=== PATIENT | male | born 1985 | race Caucasian/White ===

== ENCOUNTER 2018-04-02 00:59 | Inpatient (IN) | payer MEDICAID ==
[2018-04-02] MEDS ORDERED: Sodium Chloride 0.9% 1,000 ML IV ONE ×2 (01:41→06:07)
[2018-04-02] MEDS ORDERED: Sodium Chloride 0.9% 1,000 ML ONE (01:48)
[2018-04-02 01:56] LABS: BASO # 0.1 K/uL (0.0-0.2); EOS # 0.8 K/uL (0.0-0.7); EOS % 8.8 % (0.0-4.0); HEMOGLOBIN 15.4 g/dL (12.0-18.0); LYMPH # 1.9 K/uL (1.0-4.3); LYMPH % 20.2 % (20.0-40.0); MEAN CORPUSCULAR HEMOGLOBIN 30.7 pg (27.0-31.0); MEAN CORPUSCULAR HGB CONC 34.9 g/dL (33.0-37.0); MEAN PLATELET VOLUME 9.5 fL (7.2-11.7); MONO # 1.2 K/uL (0.0-0.8); MONO % 12.5 % (0.0-10.0); NEUT # 5.4 K/uL (1.8-7.0); NEUT % 57.5 % (50.0-75.0); RBC 5.01 Mil/uL (4.40-5.90); WHITE BLOOD COUNT 9.4 K/uL (4.8-10.8)
[2018-04-02 02:02] LABS: SQUAMOUS EPITHIAL < 1 /hpf (0-5); URINE BACTERIA RARE (<OCC); URINE BILIRUBIN NEGATIVE (NEGATIVE); URINE BLOOD NEGATIVE (NEGATIVE); URINE CLARITY Clear (Clear); URINE COLOR Yellow (YELLOW); URINE GLUCOSE (UA) 1+ mg/dL (Normal); URINE HYALINE CAST 0-2 /lpf (0-2); URINE LEUKOCYTE ESTERASE NEG Leu/uL (Negative); URINE PROTEIN 2+ mg/dL (NEGATIVE); URINE UROBILINOGEN NORMAL mg/dL (0.2-1.0)
[2018-04-02 02:09] LABS: ALB/GLOB RATIO 1.3 (1.0-2.1); ALBUMIN 4.4 g/dL (3.5-5.0); CALCIUM 9.4 mg/dl (8.6-10.4)
[2018-04-02] MEDS ORDERED: Morphine 4 MG/ML VIAL ONE (02:58)
--- NOTE | 2018-04-02 05:20 | C.PDOC ---
History Of Present Illness 32 year old male presents with a Hx of familial polyposis s/p total colectomy ( last surgery in 2011) presents to the ER with left sided flank pain that radiates to the abdomen intermittently for the past 3 weeks that has been worsening over the last day. Symptoms associated with nausea, vomiting, and hematuria. Patient was taking motrin initially with relief, however, he states it no longer helps. Denies fever , discharge from the osteomy. Last catheterization for BM at 11pm. Time Seen by Provider: 04/02/18 01:23 Chief Complaint (Nursing): Back Pain History Per: Patient History/Exam Limitations: no limitations Onset/Duration Of Symptoms: Days, Intermittent Episodes Current Symptoms Are (Timing): Still Present Previous Symptoms: None Associated Symptoms: Other (Nausea, vomiting, hematuria) Recent travel outside of the [place]: No Past Medical History Reviewed: Historical Data, Nursing Documentation, Vital Signs Vital Signs: Last Vital Signs Temp 97.6 F 04/02/18 15:30 Pulse 70 04/02/18 15:30 Resp 20 04/02/18 15:30 BP 114/67 04/02/18 15:30 Pulse Ox 98 04/02/18 15:30 - [facility] Procedures OTHER SKIN & SUBQ I D (06/15/13) PERIRECTAL INCISION (09/26/13) PROCTOTOMY (10/24/13) Family History: States: Diabetes, Hypertension - Social History Hx Tobacco Use: No Hx Alcohol Use: No Hx Substance Use: No - Immunization History Hx Tetanus Toxoid Vaccination: No Hx Influenza Vaccination: No Hx Pneumococcal Vaccination: No Review Of Systems Constitutional: Negative for: Fever Cardiovascular: Negative for: Chest Pain, Palpitations Respiratory: Negative for: Cough, Shortness of Breath Gastrointestinal: Positive for: Nausea, Vomiting, Abdominal Pain Genitourinary: Positive for: Hematuria. Negative for: Penile Discharge, Scrotal Pain Musculoskeletal: Positive for: Back Pain (Left flank) Physical Exam - Physical Exam Appears: Non-toxic, Other (uncomfortable) Skin: Normal Color, Warm, Dry Head: Atraumatic, Normacephalic Eye(s): bilateral: Normal Inspection, EOMI Nose: Normal Oral Mucosa: Moist Neck: Normal, Supple Chest: Symmetrical, No Tenderness Cardiovascular: Rhythm Regular Respiratory: Normal Breath Sounds, No Rales, No Rhonchi, No Wheezing Gastrointestinal/Abdominal: Soft, No Tenderness, Other (LLQ open wound with no surrounding erythema or drainage) Back: Other (Left flank tenderness) Extremity: Normal ROM Neurological/Psych: Oriented x3, Normal Speech ED Course And Treatment - Laboratory Results Result Diagrams: 04/02/18 01:45 04/02/18 01:45 O2 Sat by Pulse Oximetry: 99 (Room air) Pulse Ox Interpretation: Normal - CT Scan/US CT abd/pel Other Rad Studies (CT/US): Read By Radiologist, Radiology Report Reviewed CT/US Interpretation: EXAM: CT Abdomen and Pelvis Without Intravenous Contrast. CLINICAL HISTORY: 32 years, male; Pain; Abdominal pain; Prior surgery; Surgery date: 6+ months; Surgery type: Stomy;. Patient HX: 10-24-13. TECHNIQUE: Axial computed tomography images of the abdomen and pelvis without intravenous contrast. All CT. scans at this facility use at least one of these dose optimization techniques: automated exposure. control; mA and/or kV adjustment per patient size (includes targeted exams where dose is matched to. clinical indication); or iterative reconstruction. Coronal and sagittal reformatted images were created and reviewed. COMPARISON: CT - ABD PELVIS IV CONTRAST ONLY 2013-10-24 17:07. FINDINGS: Lung bases: Minimal bibasilar dependent atelectasis. ABDOMEN: Liver: Unremarkable. Gallbladder and bile ducts: Contracted gallbladder. No calcified stones. No ductal dilation. Pancreas: Unremarkable. No ductal dilation. Spleen: Unremarkable. No splenomegaly. Adrenals: Unremarkable. No mass. Kidneys and ureters: Mild left hydroureteronephrosis and minimal perinephric fat stranding with 10. mm obstructing calculus in the proximal left ureter. Right kidney unremarkable. Stomach and bowel: Evaluation of the GI tract is limited without benefit of oral contrast. Patient is. status post prior total colectomy the details of which are unknown. An ostomy is identified in the left. lower quadrant. A fluid filled collection is identified superior to the bladder with air fluid level in the. anti-dependent aspect of the collection and multiple small circular radiodensities of unknown etiology. layering in the dependent portion. Collection is felt most likely to represent a fluid-filled loop of bowel. potentially a surgical pouch. A distal obstruction is not entirely excluded. No mural thickening. PELVIS: Appendix: See above. Bladder: Unremarkable. Reproductive: Unremarkable as visualized. ABDOMEN and PELVIS: Intraperitoneal space: Unremarkable. No free air. No significant fluid collection. Bones/joints: No acute fracture. No dislocation. Soft tissues: Unremarkable. Vasculature: Unremarkable. No abdominal aortic aneurysm. Lymph nodes: Unremarkable. No enlarged lymph nodes. IMPRESSION: 1. Mild left hydroureteronephrosis and minimal perinephric fat stranding with 10 mm obstructing. calculus in the proximal left ureter. 2. Evaluation of the GI tract limited without benefit of oral contrast. Patient status post prior total. colectomy the details of which are unknown. Ostomy identified in the left lower quadrant. Fluid filled. collection in the lower pelvis as described above felt most likely to represent a fluid-filled loop of. bowel potentially a surgical pouch. Distal obstruction is not entirely excluded. Clinical correlation with. surgical history and more recent prior imaging studies if available is recommended. Further. evaluation with CT scan with oral contrast with a delay to allow contrast to opacify the distal bowel is. also recommended. Progress Note: Toradol administered, patient reports pain has not improved, morphine administered with relief. Case discussed with Dr Vasquez, who evaluated work up and agree dupon plan and treatment. Case discussed with patient's primary, Dr. Loredo, who agrees upon plan and admission. Disposition - Disposition Disposition: HOSPITALIZED Disposition Time: 06:00 Condition: STABLE - Clinical Impression Clinical Impression: Acute renal injury, Nephrolithiasis, Abdominal pain - PA / ELIGIBILITY SERVICES REPRESENTATIVE / Resident Statement MD/DO has reviewed & agrees with the documentation as recorded. - Scribe Statement The provider has reviewed the documentation as recorded by the Scribe Brennen Carvajal All medical record entries made by the Kathrineibandria were at my direction and personally dictated by me. I have reviewed the chart and agree that the record accurately reflects my personal performance of the history, physical exam, medical decision making, and the department course for this patient. I have also personally directed, reviewed, and agree with the discharge instructions and disposition.
[2018-04-02] MEDS ORDERED: Iohexol 240 (50 ml) PO ONE (06:18)
[2018-04-02] MEDS ORDERED: Dextrose 5%-0.225% NS 1,000 ML IV ONE (06:29)
[2018-04-02] MEDS: Dextrose 5%/0.45% NS 1,000 ML IV SCH ×4 (06:31→21:44)
[2018-04-02] MEDS ORDERED: Iohexol 240 (50 ml) ONE (06:35)
--- NOTE | 2018-04-02 08:45 | CT ---
PROCEDURE: CT Abdomen and Pelvis without intravenous contrast HISTORY: Abdominal pain COMPARISON: CT scan dated 10/24/2013 TECHNIQUE: Multiple contiguous axial images were performed through the abdomen pelvis without intravenous contrast. Subsequently, sagittal coronal reformatted images were obtained. Radiation dose: Total exam DLP = 749 mGy-cm. This CT exam was performed using one or more of the following dose reduction techniques: Automated exposure control, adjustment of the mA and/or kV according to patient size, and/or use of iterative reconstruction technique. FINDINGS: LOWER THORAX: Mild bibasilar dependent atelectasis. LIVER: Unremarkable. No gross lesion or ductal dilatation. GALLBLADDER AND BILE DUCTS: Contracted gallbladder. PANCREAS: Unremarkable. No gross lesion or ductal dilatation. SPLEEN: Unremarkable. ADRENALS: Unremarkable. No mass. KIDNEYS AND URETERS: Mild left hydroureteronephrosis and mild perinephric fat stranding with 10 millimeter obstructing calculus in the proximal left ureter. VASCULATURE: Unremarkable. No aortic aneurysm. BOWEL: Limited evaluation of the GI tract without oral contrast. Patient status post prior total colectomy the details of which are noted. An ostomy is identified in the left lower quadrant. Layering in the dependent portion. A fluid collection is identified superior to the urinary bladder with air-fluid level in the anti dependent aspect of the collection and multiple small circular radiodensities of uncertain clinical etiology layering in the dependent portion. Collection is felt most likely to represent a fluid-filled loop of bowel potentially a surgical pouch. A distal obstruction is not entirely excluded. No mural thickening. APPENDIX: Unremarkable. Normal appendix. PERITONEUM: Unremarkable. No free fluid. No free air. LYMPH NODES: Unremarkable. No enlarged lymph nodes. BLADDER: Unremarkable. REPRODUCTIVE: Unremarkable. BONES: Relative focal area of radiolucency in the right iliac bone. Clinical correlation. OTHER FINDINGS: None. IMPRESSION: 1. Mild left hydroureteronephrosis and mild perinephric fat stranding with 10 millimeter obstructing calculus in the proximal left ureter. 2. Limited evaluation of the GI tract without oral contrast. Patient status post prior total colectomy the details of which are noted. An ostomy is identified in the left lower quadrant. Layering in the dependent portion. A fluid collection is identified superior to the urinary bladder with air-fluid level in the anti dependent aspect of the collection and multiple small circular radiodensities of uncertain clinical etiology layering in the dependent portion. Collection is felt most likely to represent a fluid-filled loop of bowel potentially a surgical pouch. A distal obstruction is not entirely excluded. No mural thickening. Clinical correlation with surgical history and more recent prior imaging studies if available is recommended. Further evaluation with CT scan with oral contrast with a delay to allow contrast to opacify the distal bowel is also recommended. 3. Relative focal area of radiolucency in the right iliac bone. Clinical correlation. These findings were preliminarily reported at 4:53 a.m. on 04/02/[address] Shireen Tapia from [facility].
--- NOTE | 2018-04-02 11:16 | CT ---
PROCEDURE: CT Abdomen and Pelvis without intravenous contrast HISTORY: R/o bowel obstruction COMPARISON: CT scan of the abdomen pelvis performed approximately 6.5 hours prior. TECHNIQUE: Contiguous images were obtained from the domes of the diaphragms to the upper thighs without the administration of intravenous contrast. Oral contrast was administered. Radiation dose: Total exam DLP = 854.0 mGy-cm. This CT exam was performed using one or more of the following dose reduction techniques: Automated exposure control, adjustment of the mA and/or kV according to patient size, and/or use of iterative reconstruction technique. FINDINGS: There has been prior total colectomy. Oral contrast is seen in the pouch of bowel in the deep pelvis confirming absence of obstruction. Mild to moderate left hydroureteronephrosis secondary to obstructive proximal left ureteral calculus is grossly unchanged. Diffuse hepatic steatosis is again evident. Lucent area in the right iliac bone is again noted. The remainder of the examination is unremarkable and unchanged. IMPRESSION: No evidence of small bowel obstruction.
[2018-04-02 14:15] LABS: PROTHROMBIN TIME 11.3 SECONDS (9.7-12.2)
--- NOTE | 2018-04-02 18:17 | CP.PCM.HP ---
History of Present Illness - History of Present Illness History of Present Illness: cc; Pt is a 32 year old male who came to the ER with a 2 weeks history of back pain. PT thought it was a back spasm, however at time it was accompanied by vomiting and gross hematuria. PT treated pain with Motrim 600mg , 4 tabs q6h. PT went to [facility], but had to come back and came to ER directly from the airport. PT was given Morphine 4 mg in ER but states it did not help. He was on chronic narcotics in the past for chronic abd pain and his tolerance is very high. PT was found to have an elevated creat and Ct revealed an obstructed ureter. PMH: Familial polyposis syndrome Bening neoplasm of colon anxiety disorder pre-diabetes Generalized abdominal pain Left lower quadrant pain FMH: Mother- high cholesterol Father- Diabetes Hypertension PSH; colectomy for polyposisi Social Hx: neg. smoke neg. ETOH neg. Drugs Allergies: NKDA Medications: Ventolin 1-2 puffs Present on Admission - Present on Admission Any Indicators Present on Admission: No Review of Systems - Cardiovascular Cardiovascular: absent: Chest Pain, Chest Pain with Activity, Diaphoresis, Orthopnea - Respiratory Respiratory: absent: Cough, Dyspnea, Wheezing - Gastrointestinal Gastrointestinal: Cramping, Nausea, Vomiting - Genitourinary Genitourinary: Hematuria - Musculoskeletal Musculoskeletal: Back Pain, Muscle Cramps Past Patient History - Infectious Disease Hx of Infectious Diseases: None - Past Medical History & Family History Past Medical History?: Yes - Past Social History Smoking Status: Never Smoked - CARDIAC Hx Cardiac Disorders: No - PULMONARY Hx Respiratory Disorders: No - NEUROLOGICAL Hx Neurological Disorder: No - HEENT Hx HEENT Problems: No - RENAL Hx Chronic Kidney Disease: No - ENDOCRINE/METABOLIC Hx Endocrine Disorders: No - HEMATOLOGICAL/ONCOLOGICAL Hx Blood Disorders: No - INTEGUMENTARY Hx Dermatological Problems: No - MUSCULOSKELETAL/RHEUMATOLOGICAL Hx Falls: No - GASTROINTESTINAL Hx Gastrointestinal Disorders: No - GENITOURINARY/GYNECOLOGICAL Hx Genitourinary Disorders: No - PSYCHIATRIC Hx Substance Use: No - SURGICAL HISTORY Hx Surgeries: Yes Other/Comment: total colectomy 2011= with stoma to left abdomen 2012 - ANESTHESIA Hx Anesthesia: Yes Hx Anesthesia Reactions: No Meds Allergies/Adverse Reactions: Allergies Allergy/AdvReac Type Severity Reaction Status Date / Time No Known Allergies Allergy Verified 04/02/18 01:19 Physical Exam - Constitutional Appears: No Acute Distress - Eye Exam Eye Exam: EOMI - ENT Exam ENT Exam: Mucous Membranes Moist - Neck Exam Neck exam: Positive for: Normal Inspection - Respiratory Exam Respiratory Exam: Clear to Auscultation Bilateral - Cardiovascular Exam Cardiovascular Exam: RRR, +S1, +S2. absent: JVD, Rubs, Systolic Murmur - GI/Abdominal Exam GI & Abdominal Exam: Normal Bowel Sounds, Soft. absent: Distended, Mass, Rebound, Tenderness - Extremities Exam Extremities exam: Positive for: normal inspection. Negative for: joint swelling Results - Vital Signs Recent Vital Signs: Last Vital Signs Temp 97.6 F 04/02/18 15:30 Pulse 70 04/02/18 15:30 Resp 20 04/02/18 15:30 BP 114/67 04/02/18 15:30 Pulse Ox 98 04/02/18 15:30 - Labs Result Diagrams: 04/02/18 01:45 04/02/18 01:45 Labs: Laboratory Results - last 24 hr 04/02/18 04/02/18 04/02/18 01:45 01:45 01:45 WBC 9.4 RBC 5.01 Hgb 15.4 Hct 44.0 MCV 88.0 MCH 30.7 MCHC 34.9 RDW 13.0 Plt Count 238 MPV 9.5 Neut % (Auto) 57.5 Lymph % (Auto) 20.2 [place] % (Auto) 12.5 H Eos % (Auto) 8.8 H Baso % (Auto) 1.0 Neut # (Auto) 5.4 Lymph # (Auto) 1.9 [place] # (Auto) 1.2 H Eos # (Auto) 0.8 H Baso # (Auto) 0.1 PT INR Sodium 142 Potassium 3.7 Chloride 104 Carbon Dioxide 23 Anion Gap 18 BUN 30 H Creatinine 2.5 H Est GFR ( Amer) 37 Est GFR (Non-Af Amer) 30 Random Glucose 84 Calcium 9.4 Total Bilirubin 0.9 AST 28 ALT 43 Alkaline Phosphatase 106 Total Protein 7.9 Albumin 4.4 Globulin 3.5 Albumin/Globulin Ratio 1.3 Lipase 132 Urine Color Yellow Urine Clarity Clear Urine pH 5.0 Ur Specific [place] 1.024 Urine Protein 2+ H Urine Glucose (UA) 1+ H Urine Ketones Negative Urine Blood Negative Urine Nitrate Negative Urine Bilirubin Negative Urine Urobilinogen Normal Ur Leukocyte Esterase Neg Urine WBC (Auto) 19 H Urine RBC (Auto) 2 Ur Squamous Epith Cells < 1 Urine Bacteria Rare Hyaline Casts 0-2 04/02/18 14:00 WBC RBC Hgb Hct MCV MCH MCHC RDW Plt Count MPV Neut % (Auto) Lymph % (Auto) [place] % (Auto) Eos % (Auto) Baso % (Auto) Neut # (Auto) Lymph # (Auto) [place] # (Auto) Eos # (Auto) Baso # (Auto) PT 11.3 INR 1.0 Sodium Potassium Chloride Carbon Dioxide Anion Gap BUN Creatinine Est GFR ( Amer) Est GFR (Non-Af Amer) Random Glucose Calcium Total Bilirubin AST ALT Alkaline Phosphatase Total Protein Albumin Globulin Albumin/Globulin Ratio Lipase Urine Color Urine Clarity Urine pH Ur Specific [place] Urine Protein Urine Glucose (UA) Urine Ketones Urine Blood Urine Nitrate Urine Bilirubin Urine Urobilinogen Ur Leukocyte Esterase Urine WBC (Auto) Urine RBC (Auto) Ur Squamous Epith Cells Urine Bacteria Hyaline Casts Assessment & Plan - Assessment and Plan (Free Text) Assessment: Acute renal failure due to obstructive uropathy UReter stones can not rule out underlying papillary necrosis due to excessive use of Nsaids urology consulted for cysto in AM ivf pain management gi and dvt prophylaxis rocephin +urine
[2018-04-02] MEDS: HYDROmorphone 1 mg/ml ISec IVP PRN (20:23)
[2018-04-02 21:46] LABS: CALCIUM 8.4 mg/dl (8.6-10.4)
--- NOTE | 2018-04-02 22:30 | CP.PCM.CON ---
Past Patient History - Infectious Disease Hx of Infectious Diseases: None - Past Medical History & Family History Past Medical History?: Yes - Past Social History Smoking Status: Never Smoked - CARDIAC Hx Cardiac Disorders: No - PULMONARY Hx Respiratory Disorders: No - NEUROLOGICAL Hx Neurological Disorder: No - HEENT Hx HEENT Problems: No - RENAL Hx Chronic Kidney Disease: No - ENDOCRINE/METABOLIC Hx Endocrine Disorders: No - HEMATOLOGICAL/ONCOLOGICAL Hx Blood Disorders: No - INTEGUMENTARY Hx Dermatological Problems: No - MUSCULOSKELETAL/RHEUMATOLOGICAL Hx Falls: No - GASTROINTESTINAL Hx Gastrointestinal Disorders: No - GENITOURINARY/GYNECOLOGICAL Hx Genitourinary Disorders: No - PSYCHIATRIC Hx Substance Use: No - SURGICAL HISTORY Hx Surgeries: Yes Other/Comment: total colectomy 2012= with stoma to left abdomen 2011 - ANESTHESIA Hx Anesthesia: Yes Hx Anesthesia Reactions: No Meds Allergies/Adverse Reactions: Allergies Allergy/AdvReac Type Severity Reaction Status Date / Time No Known Allergies Allergy Verified 04/02/18 01:19 - Medications Medications: Current Medications Famotidine (Pepcid) 20 mg IVP DAILY [facility] Heparin Sodium (Porcine) (Heparin) 5,000 units SC Q8 [facility] Last Admin: 04/02/18 21:46 Dose: 5,000 units Hydromorphone HCl (Dilaudid) 1 mg IVP Q4H PRN PRN Reason: Pain, moderate (4-7) Last Admin: 04/02/18 20:23 Dose: 1 mg Dextrose/Sodium Chloride (Dextrose 5%/0.45% Ns 1000 Ml) 1,000 mls @ 125 mls/hr IV .Q8H [facility] Last Admin: 04/02/18 21:44 Dose: Not Given Ceftriaxone Sodium (Rocephin Iv 1 Gm Duplex) 50 mls @ 100 mls/hr IVPB DAILY [facility] PRN Reason: Protocol Ondansetron HCl (Zofran Inj) 4 mg IVP Q4H PRN PRN Reason: Nausea/Vomiting Last Admin: 04/02/18 09:42 Dose: 4 mg Results - Vital Signs Recent Vital Signs: Last Vital Signs Temp 97.6 F 04/02/18 15:30 Pulse 70 04/02/18 15:30 Resp 20 04/02/18 15:30 BP 114/67 04/02/18 15:30 Pulse Ox 99 04/02/18 20:51 - Labs Result Diagrams: 04/02/18 01:45 07/05/18 21:14 Labs: Laboratory Results - last 24 hr 04/02/18 04/02/18 04/02/18 01:45 01:45 01:45 WBC 9.4 RBC 5.01 Hgb 15.4 Hct 44.0 MCV 88.0 MCH 30.7 MCHC 34.9 RDW 13.0 Plt Count 238 MPV 9.5 Neut % (Auto) 57.5 Lymph % (Auto) 20.2 [place] % (Auto) 12.5 H Eos % (Auto) 8.8 H Baso % (Auto) 1.0 Neut # (Auto) 5.4 Lymph # (Auto) 1.9 [place] # (Auto) 1.2 H Eos # (Auto) 0.8 H Baso # (Auto) 0.1 PT INR Sodium 142 Potassium 3.7 Chloride 104 Carbon Dioxide 23 Anion Gap 18 BUN 30 H Creatinine 2.5 H Est GFR ( Amer) 37 Est GFR (Non-Af Amer) 30 Random Glucose 84 Calcium 9.4 Total Bilirubin 0.9 AST 28 ALT 43 Alkaline Phosphatase 106 Total Protein 7.9 Albumin 4.4 Globulin 3.5 Albumin/Globulin Ratio 1.3 Lipase 132 Urine Color Yellow Urine Clarity Clear Urine pH 5.0 Ur Specific [place] 1.024 Urine Protein 2+ H Urine Glucose (UA) 1+ H Urine Ketones Negative Urine Blood Negative Urine Nitrate Negative Urine Bilirubin Negative Urine Urobilinogen Normal Ur Leukocyte Esterase Neg Urine WBC (Auto) 19 H Urine RBC (Auto) 2 Ur Squamous Epith Cells < 1 Urine Bacteria Rare Hyaline Casts 0-2 04/02/18 04/02/18 14:00 21:14 WBC RBC Hgb Hct MCV MCH MCHC RDW Plt Count MPV Neut % (Auto) Lymph % (Auto) [place] % (Auto) Eos % (Auto) Baso % (Auto) Neut # (Auto) Lymph # (Auto) [place] # (Auto) Eos # (Auto) Baso # (Auto) PT 11.3 INR 1.0 Sodium 138 Potassium 3.6 Chloride 108 H Carbon Dioxide 21 L Anion Gap 14 BUN 19 Creatinine 1.9 H Est GFR ( Amer) 50 Est GFR (Non-Af Amer) 42 Random Glucose 102 Calcium 8.4 L Total Bilirubin AST ALT Alkaline Phosphatase Total Protein Albumin Globulin Albumin/Globulin Ratio Lipase Urine Color Urine Clarity Urine pH Ur Specific [place] Urine Protein Urine Glucose (UA) Urine Ketones Urine Blood Urine Nitrate Urine Bilirubin Urine Urobilinogen Ur Leukocyte Esterase Urine WBC (Auto) Urine RBC (Auto) Ur Squamous Epith Cells Urine Bacteria Hyaline Casts Assessment & Plan - Assessment and Plan (Free Text) Assessment: IMP: L renal colici Urolithiasis s/p small and large bowel resection of polyposis Thank you YS - Date & Time Date: 04/02/18 Time: 07:50
[2018-04-03] MEDS: HYDROmorphone 1 mg/ml ISec IVP PRN ×5 (01:37→19:47)
[2018-04-03] MEDS: Dextrose 5%/0.45% NS 1,000 ML IV SCH ×4 (02:40→22:01)
[2018-04-03] MEDS ORDERED: Lidocaine 2% Jelly (Uro-Jet) ONE (08:51)
[2018-04-03] MEDS ORDERED: Iohexol 240 (50 ml) ONE (08:51)
[2018-04-03] MEDS ORDERED: cefTRIAXone IV 1 gm in Dextros 50 ML IVPB ONE (08:51)
[2018-04-03] MEDS ORDERED: Propofol 10 mg/ml Inj (20 ML) ONE ×2 (09:01→09:02)
[2018-04-03] MEDS ORDERED: Midazolam 2 MG/2 ML VIAL ONE (09:01)
[2018-04-03] MEDS ORDERED: HYDROmorphone 0.5 mg/0.5 ml ISec IVP PRN (09:44)
[2018-04-03 10:06] LABS: URIC ACID 5.4 mg/dL (3.5-8.5)
--- NOTE | 2018-04-03 10:13 | PCM.SURG1 ---
Surgeon's Initial Post Op Note - Surgeon's Notes Surgeon: Humphrey Lara Trimmer Meat: none Type of Anesthesia: General LMA Pre-Operative Diagnosis: L renal colic. urolithiasis Operative Findings: same. L hydronephrosis. L renal calculus Post-Operative Diagnosis: same Operation Performed: cysto. L rtg pyelogram. insertion of L ureteral stent Specimen/Specimens Removed: urine Estimated Blood Loss: EBL {In ML}: 0 Blood Products Given: N/A Date of Surgery/Procedure: 04/03/18 Time of Surgery/Procedure: 09:45
[2018-04-03] MEDS ORDERED: Lactated Ringer's 1,000 ML IV ONE (11:00)
[2018-04-03] MEDS: cefTRIAXone IV 1 gm in Dextros 50 ML IVPB SCH (11:29)
--- NOTE | 2018-04-03 12:22 | RAD ---
PROCEDURE: Intraoperative Fluoroscopy. HISTORY: LT. URETER CALCULI/HYDRONEPHROSIS FINDINGS: Fluoroscopic assistance was provided for . Fluoroscopy time = 35.4 seconds. Radiation dose = 0.13300 mGy-cm Please refer to the operative report for additional details
--- NOTE | 2018-04-03 12:32 | RAD ---
HISTORY: LT. URETER CALCULI COMPARISON: Comparison made with CT scan abdomen and pelvis 04/02/2018. The FINDINGS: BOWEL: Normal. No obstruction. No free air. BONES: Normal. OTHER FINDINGS: Previously noted 10 mm x 5.8 mm proximal left ureteral- UPJ calculus is not appreciated on this exam. IMPRESSION: Previously noted 10 mm x 5.8 mm proximal left ureteral - UPJ calculus not appreciated on this study.
[2018-04-03 16:04] VITALS: RESP 20
[2018-04-03 20:00] LABS: BLOOD UREA NITROGEN 13 mg/dL (9-20); CALCIUM 8.6 mg/dl (8.6-10.4); GFR AFRICAN-AMERICAN > 60; GFR NON-AFRICAN AMERICAN > 60
[2018-04-04] MEDS: HYDROmorphone 1 mg/ml ISec IVP PRN ×5 (00:20→19:13)
[2018-04-04] MEDS: Dextrose 5%/0.45% NS 1,000 ML IV SCH ×2 (06:28→14:53)
[2018-04-04 06:53] LABS: BLOOD UREA NITROGEN 12 mg/dL (9-20); CALCIUM 8.9 mg/dl (8.6-10.4); GFR AFRICAN-AMERICAN > 60; GFR NON-AFRICAN AMERICAN > 60
[2018-04-04] MEDS: cefTRIAXone IV 1 gm in Dextros 50 ML IVPB SCH (10:08)
[2018-04-04 16:17] VITALS: BP 153/86; TEMP 98; O2SAT 95
[2018-04-04] MEDS ORDERED: Potassium Chloride 20 mEq ER Tab PO ONE (16:30)
[2018-04-04 18:36] VITALS: PULSE 62
--- NOTE | 2018-04-04 19:59 | CP.PCM.DIS ---
Provider - Provider Date of Admission: 04/02/18 06:04 Attending physician: Nancy Loredo MD Time Spent in preparation of Discharge (in minutes): 30 Hospital Course - Lab Results Lab Results: Micro Results 04/03/18 12:19 Urine,Catheterized Urine Culture - Final No Growth (<1,000 CFU/ML) 04/03/18 12:19 Urine Urine Culture - Final No Growth (<1,000 CFU/ML) Most Recent Lab Values WBC 9.4 K/uL (4.8-10.8) 04/02/18 01:45 RBC 5.01 Mil/uL (4.40-5.90) 04/02/18 01:45 Hgb 15.4 g/dL (12.0-18.0) 04/02/18 01:45 Hct 44.0 % (35.0-51.0) 04/02/18 01:45 MCV 88.0 fL (80.0-94.0) 04/02/18 01:45 MCH 30.7 pg (27.0-31.0) 04/02/18 01:45 MCHC 34.9 g/dL (33.0-37.0) 04/02/18 01:45 RDW 13.0 % (11.5-14.5) 04/02/18 01:45 Plt Count 238 K/uL (130-400) 04/02/18 01:45 MPV 9.5 fL (7.2-11.7) 04/02/18 01:45 Neut % (Auto) 57.5 % (50.0-75.0) 04/02/18 01:45 Lymph % (Auto) 20.2 % (20.0-40.0) 04/02/18 01:45 [place] % (Auto) 12.5 % (0.0-10.0) H 04/02/18 01:45 Eos % (Auto) 8.8 % (0.0-4.0) H 04/02/18 01:45 Baso % (Auto) 1.0 % (0.0-2.0) 04/02/18 01:45 Neut # (Auto) 5.4 K/uL (1.8-7.0) 04/02/18 01:45 Lymph # (Auto) 1.9 K/uL (1.0-4.3) 04/02/18 01:45 [place] # (Auto) 1.2 K/uL (0.0-0.8) H 04/02/18 01:45 Eos # (Auto) 0.8 K/uL (0.0-0.7) H 04/02/18 01:45 Baso # (Auto) 0.1 K/uL (0.0-0.2) 04/02/18 01:45 PT 11.3 SECONDS (9.7-12.2) 04/02/18 14:00 INR 1.0 04/02/18 14:00 Sodium 142 mmol/L (132-148) 04/04/18 06:26 Potassium 3.3 mmol/L (3.6-5.2) L 04/04/18 06:26 Chloride 102 mmol/L (98-107) 04/04/18 06:26 Carbon Dioxide 28 mmol/L (22-30) 04/04/18 06:26 Anion Gap 14 (10-20) 04/04/18 06:26 BUN 12 mg/dL (9-20) 04/04/18 06:26 Creatinine 1.2 mg/dL (0.8-1.5) 04/04/18 06:26 Est GFR ( Amer) > 60 04/04/18 06:26 Est GFR (Non-Af Amer) > 60 04/04/18 06:26 Random Glucose 97 mg/dL (75-110) 04/04/18 06:26 Uric Acid 5.4 mg/dL (3.5-8.5) 04/02/18 21:14 Calcium 8.9 mg/dl (8.6-10.4) 04/04/18 06:26 Phosphorus 3.4 mg/dL (2.5-4.5) 04/04/18 06:26 Magnesium 1.8 mg/dL (1.6-2.3) 04/04/18 06:26 Total Bilirubin 0.9 mg/dL (0.2-1.3) 04/02/18 01:45 AST 28 U/L (17-59) 04/02/18 01:45 ALT 43 U/L (21-72) 04/02/18 01:45 Alkaline Phosphatase 106 U/L (38-126) 04/02/18 01:45 Total Protein 7.9 g/dL (6.3-8.3) 04/02/18 01:45 Albumin 4.4 g/dL (3.5-5.0) 04/02/18 01:45 Globulin 3.5 gm/dL (2.2-3.9) 04/02/18 01:45 Albumin/Globulin Ratio 1.3 (1.0-2.1) 04/02/18 01:45 Lipase 132 U/L (23-300) 04/02/18 01:45 Urine Color Yellow (YELLOW) 04/02/18 01:45 Urine Clarity Clear (Clear) 04/02/18 01:45 Urine pH 5.0 (5.0-8.0) 04/02/18 01:45 Ur Specific [place] 1.024 (1.003-1.030) 04/02/18 01:45 Urine Protein 2+ mg/dL (NEGATIVE) H 04/02/18 01:45 Urine Glucose (UA) 1+ mg/dL (Normal) H 04/02/18 01:45 Urine Ketones Negative mg/dL (NEGATIVE) 04/02/18 01:45 Urine Blood Negative (NEGATIVE) 04/02/18 01:45 Urine Nitrate Negative (NEGATIVE) 04/02/18 01:45 Urine Bilirubin Negative (NEGATIVE) 04/02/18 01:45 Urine Urobilinogen Normal mg/dL (0.2-1.0) 04/02/18 01:45 Ur Leukocyte Esterase Neg [place]/uL (Negative) 04/02/18 01:45 Urine WBC (Auto) 19 /hpf (0-5) H 04/02/18 01:45 Urine RBC (Auto) 2 /hpf (0-3) 04/02/18 01:45 Ur Squamous Epith Cells < 1 /hpf (0-5) 04/02/18 01:45 Urine Bacteria Rare (<OCC) 04/02/18 01:45 Hyaline Casts 0-2 /lpf (0-2) 04/02/18 01:45 - Hospital Course Hospital Course: Pt was admitted with obstructive uropathy secondary to ureter stone. pt had cyto , stent placed, hydrated and treated for pain. Pt creat normalized sent home on po anbx and pain meds follow up with me and urologyst next week. Discharge Exam - Eye Exam Eye Exam: EOMI - ENT Exam ENT Exam: Mucous Membranes Moist - Respiratory Exam Respiratory Exam: Clear to PA & Lateral - Cardiovascular Exam Cardiovascular Exam: +S1, +S2. absent: JVD, Rubs Discharge Plan - Follow Up Plan Condition: STABLE
--- NOTE | 2018-04-04 20:02 | CP.PCM.PN ---
Subjective - Date & Time of Evaluation Date of Evaluation: 04/03/18 Time of Evaluation: 11:00 - Subjective Subjective: Pt having cysto +pain Objective - Vital Signs/Intake and Output Vital Signs (last 24 hours): Temp Pulse Resp BP Pulse Ox 98.0 F 62 20 153/86 H 95 04/04/18 16:00 04/04/18 16:10 04/04/18 16:00 04/04/18 16:00 04/04/18 16:00 Intake and Output: 04/04/18 04/05/18 18:59 06:59 Intake Total 550 Output Total 700 Balance -150 - Medications Medications: Current Medications Famotidine (Pepcid) 20 mg IVP DAILY [facility] Last Admin: 04/04/18 10:10 Dose: 20 mg Heparin Sodium (Porcine) (Heparin) 5,000 units SC Q8 [facility] Last Admin: 04/04/18 13:58 Dose: 5,000 units Hydromorphone HCl (Dilaudid) 2 mg IVP Q4H PRN PRN Reason: Pain, moderate (4-7) Last Admin: 04/04/18 19:13 Dose: 2 mg Dextrose/Sodium Chloride (Dextrose 5%/0.45% Ns 1000 Ml) 1,000 mls @ 125 mls/hr IV .Q8H [facility] Last Admin: 04/04/18 14:53 Dose: 125 mls/hr Ceftriaxone Sodium (Rocephin Iv 1 Gm Duplex) 50 mls @ 100 mls/hr IVPB DAILY [facility] PRN Reason: Protocol Last Admin: 04/04/18 10:08 Dose: 100 mls/hr Ondansetron HCl (Zofran Inj) 4 mg IVP Q4H PRN PRN Reason: Nausea/Vomiting Last Admin: 04/04/18 19:10 Dose: 4 mg - Labs Labs: 04/02/18 01:45 04/04/18 06:26 PT 11.3 SECONDS (9.7-12.2) 04/02/18 14:00 INR 1.0 04/02/18 14:00 - Eye Exam Eye Exam: EOMI - ENT Exam ENT Exam: Mucous Membranes Moist - Respiratory Exam Respiratory Exam: Clear to Ausculation Bilateral - GI/Abdominal Exam GI & Abdominal Exam: Soft, Normal Bowel Sounds. absent: Tenderness Assessment and Plan - Assessment and Plan (Free Text) Assessment: cont hydration pain meds increased cysto
--- NOTE | 2018-04-05 09:32 | OP ---
PROCEDURE DATE: 04/03/2018 PREOPERATIVE DIAGNOSIS: Left renal colic. POSTOPERATIVE DIAGNOSES: Left renal colic. Left renal calculus. PROCEDURE: Cystoscopy. Left retrograde ureteral pyelogram. Insertion of left ureteral stent. Exam under anesthesia. DESCRIPTION OF PROCEDURE: Procedure as follows: The patient was placed in the lithotomy position. The genitalia prepped and draped sterilely. Anesthesia was applied by the anesthesiologist. The patient received perioperative antibiotics. Procedure was performed under video endoscopic control as well as under fluoroscopic control. Depalletizer Operator film of the abdomen was obtained including PA and oblique views. There were no definite calcifications identified along the course of the urinary tract. The patient was in lithotomy position. Genitalia prepped and draped sterilely. A 22-[place] cystoscope sheath was introduced under direct vision. Urethra, prostate, and bladder were inspected with 30 degree lens. FINDINGS: There was no stricture in the anterior urethra. There was evidence of mild prostatic hypertrophy which was occlusive. There were numerous sand-like particles within the bladder. There was in addition a tiny, less than 1 mm yellow stone fragment within the bladder. There was no bladder tumor. There were probable uric acid bladder stones as described. The ureteral orifices were identified. There was mild erythema of the trigone. A retrograde ureteral pyelogram was performed. Iodinated contrast dye was instilled via an open-ended catheter into the left distal ureter. Retrograde pyelogram demonstrated a normal ureteral course and caliber. There was left hydronephrosis with dilation of the pelvis and at the calyces. There was an oval-shaped stone, approximately 1 cm in size, in the left renal pelvis. These oval-shaped finding appeared as a radiolucency relative to the contrast. A 0.035-inch guidewire was inserted through the open-ended catheter up to the level of kidney. The open-ended catheter was removed. A 6-[place] Multi-Length stent was inserted over the guidewire. Proper stent position was confirmed with fluoroscopy and endoscopy. The guidewire was removed and stent was left in place. There was noted to be a brisk hydronephrotic flow of turbid urine through the ureteral stent. The bladder was reinspected and confirmed the above findings. The bladder was drained. Cystoscope sheath removed. Rectal examination was attempted. However, the rectum was closed. Rectal examination was not able to be performed. The patient was returned to supine position. The patient tolerated procedure without complication. Janelle Lara MD cc: Nancy Loredo MD
--- NOTE | 2018-04-05 10:04 | CON ---
DATE: 04/02/2018 Urology consultation is requested by Dr. Nancy Loredo. Urology consultation filled by Dr. Janelle Lara. HISTORY OF PRESENT ILLNESS: The patient is a 32-year-old male with left flank pain. The patient reports that for approximately in the past 1 to 2 weeks he has had pain in the left flank. The pain became more severe over the past several days. The patient presented to the emergency room. There had been previous hematuria, which has resolved. The patient reports no fever. The patient had nausea. The patient reports no history of previous urolithiasis. The patient is otherwise well except for his previous surgical history. There is no history of hypertension or diabetes. The patient lives with his and child. The patient does not smoke. PAST SURGICAL HISTORY: The patient has previous colectomy with colostomy formation. The patient has history of a polyposis coli. The patient has normal bowel movements. He has a colostomy, although does not need to wear a colostomy bag. He has bowel movements approximately three times per day. The patient presented to the emergency room. He required parenteral analgesics. The patient reports that he still has required parenteral analgesics and has had pain. PHYSICAL EXAMINATION: GENERAL: The patient is well-developed, well-nourished, middle-aged male appearing his stated age. The patient has mild flank pain. He reports some relief of the pain with analgesics. ABDOMEN: Soft, nontender, nondistended. No mass or organomegaly. BACK: No CVA tenderness. GENITALIA: Without inflammation. LABORATORY DATA: Reviewed. CT scan is reviewed. There is an obstructing left upper ureteral stone at approximately the L3-L4 level. IMPRESSION: 1. Left renal colic. 2. History of colectomy for polyposis. In view of the size of the stone and persistent pain, the patient will require cystoscopy and stent insertion. Nature of the procedure has been explained to the patient. We will order a serum uric acid as well. I have checked the density of the stone on the CAT scan. There is a low density measurement of approximately 300 HU, consistent with uric acid urolithiasis. Further therapy to follow according to the patient's clinical course as well as results of above. Thank you for recommending the patient for urology consultation. Janelle Lara MD [facility] # [phone]
== END 2018-04-04 20:45 | disposition home or self-care (01) | DRG 324 ==
LOC: C.ER 00:59 → C.9E 06:04 → C.3T 06:24
PROVIDERS: ADMIT Internal Medicine; ATTEND Internal Medicine
PROC: 0T778DZ Dilation of Left Ureter with Intraluminal Device, Via Natural or Artificial Opening Endoscopic (ICD-10-PCS; principal; 2018-04-04)
PROC: BT1FZZZ Fluoroscopy of Left Kidney, Ureter and Bladder (ICD-10-PCS; 2018-04-04)
DX: N13.2 Hydronephrosis with renal and ureteral calculous obstruction (principal); N17.9 Acute kidney failure, unspecified; N21.0 Calculus in bladder; N40.0 Benign prostatic hyperplasia without lower urinary tract symptoms; E11.9 Type 2 diabetes mellitus without complications; I10 Essential (primary) hypertension; Z79.891 Long term (current) use of opiate analgesic; Z90.49 Acquired absence of other specified parts of digestive tract; Z93.3 Colostomy status

== ENCOUNTER 2018-09-04 13:14 | Emergency (ER) | payer MEDICAID ==
[2018-09-04 13:30] VITALS: RESP 18; TEMP 98.4
[2018-09-04] MEDS ORDERED: Sodium Chloride 0.9% 1,000 ML IV STA (13:52)
--- NOTE | 2018-09-04 14:03 | C.PDOC ---
History Of Present Illness 33 y/o male with a PMHx of kidney stones presents to the ED complaining of left lower back pain radiating to the left abdomen for 3 days. He denies any associated nausea, vomiting, fevers, chills, dysuria, or other complaints. Patient admits to noticing some hematuria yesterday. He reports pain is similar to prior episode of kidney stones over the summer. Time Seen by Provider: 09/04/18 13:31 Chief Complaint (Nursing): Male Genitourinary History Per: Patient History/Exam Limitations: no limitations Onset/Duration Of Symptoms: Days (x3) Current Symptoms Are (Timing): Still Present Past Medical History Reviewed: Historical Data, Nursing Documentation, Vital Signs Vital Signs: Last Vital Signs Temp 98.4 F 09/04/18 13:27 Pulse 78 09/04/18 13:27 Resp 18 09/04/18 13:27 BP 182/84 H 09/04/18 13:27 Pulse Ox 99 09/04/18 13:27 - Medical History PMH: Kidney Stones Denies: Chronic Kidney Disease - [facility] Procedures DILATION OF LEFT URETER WITH INTRALUMINAL DEVICE, ENDO (04/02/18) FLUOROSCOPY OF LEFT KIDNEY, URETER AND BLADDER (04/02/18) OTHER SKIN & SUBQ I D (06/15/13) PERIRECTAL INCISION (09/26/13) PROCTOTOMY (10/24/13) Family History: States: Diabetes, Hypertension - Social History Hx Tobacco Use: No Hx Alcohol Use: No Hx Substance Use: No - Immunization History Hx Tetanus Toxoid Vaccination: Yes Hx Influenza Vaccination: No Hx Pneumococcal Vaccination: No Review Of Systems Except As Marked, All Systems Reviewed And Found Negative. Constitutional: Negative for: Fever, Chills Gastrointestinal: Positive for: Abdominal Pain (left lower quadrant). Negative for: Nausea, Vomiting, Diarrhea Genitourinary: Positive for: Hematuria. Negative for: Dysuria, Frequency Musculoskeletal: Positive for: Back Pain (left low back) Physical Exam - Physical Exam Additional Physical Exam Comments: Constitutional: No acute distress. Head: Normocephalic. Atraumatic. Eyes: PERRL. ENT: Moist mucous membranes. Neck: Supple. Cardiovascular: Regular rate. Radial pulse 2+ bilaterally. Chest: No tenderness. Respiratory: Clear to auscultation bilaterally. GI: Soft. Nontender. Nondistended. Back: No CVA tenderness. Musculoskeletal: No tenderness or swelling of extremities. Skin: No rash. Neurologic: Alert, no focal deficit. ED Course And Treatment - Laboratory Results Result Diagrams: 09/04/18 14:01 09/04/18 14:01 O2 Sat by Pulse Oximetry: 99 (RA) Pulse Ox Interpretation: Normal Medical Decision Making Medical Decision Making: Initial Plan: --CMP --Lipase --CBC --UA --Urine culture --CT Abd/Pelvis --1 L of IV fluids --[address] resulted: Accession No. : [id number] Patient Name / ID : RICHY WILBURN / [id number] Exam Date : 09/04/2018 14:31:05 ( Approved ) Study Comment : Sex / Age : M / 33Y Creator : Danielle Meza MD Dictator : Danielle Meza MD Label Folder : Marine Fisheries Technician : Danielle Meza MD Approver2 : Report Date : 09/04/2018 15:07:29 My Comment : Date of service: 09/04/2018 PROCEDURE: CT Abdomen and Pelvis without intravenous contrast HISTORY: L flank pain COMPARISON: 04/02/2018. TECHNIQUE: CT scan of the abdomen and pelvis was performed without administration of intravenous contrast. Oral contrast was not administered. Coronal and sagittal reformatted images were obtained. . Radiation dose: Total exam DLP = 877.16 mGy-cm. This CT exam was performed using one or more of the following dose reduction techniques: Automated exposure control, adjustment of the mA and/or kV according to patient size, and/or use of iterative reconstruction technique. FINDINGS: LOWER THORAX: The visualized lungs are clear. LIVER: Moderate hepatomegaly and diffuse fatty liver. No intrahepatic ductal dilatation. GALLBLADDER AND BILE DUCTS: No calcified gallstones. No biliary dilatation PANCREAS: Normal in size. No ductal dilatation. SPLEEN: Normal in size. ADRENALS: Normal in size. No discrete nodule. KIDNEYS AND URETERS: The right kidney is normal in size without nephrolithiasis. No hydronephrosis. There is a 6 mm stone in the left proximal ureteral just distal to the UV junction with mild dilatation of the renal pelvis, mild hydronephrosis, edema and enlargement of the left kidney and perinephric fat stranding. There are punctate nonobstructing stones in the lower pole of the left kidney. VASCULATURE: No aortic aneurysm. No aortic atherosclerotic calcification or mural plaque present. BOWEL: Evaluation of the bowel is limited in the absence of oral contrast. The small bowel loops are normal in caliber. Status post total colectomy. There are multiple presumable anterolisthesis in a bowel loop in the deep pelvis. PERITONEUM: No free fluid. No free air. LYMPH NODES: No enlarged lymph nodes. BLADDER: Well distended and grossly normal in appearance. REPRODUCTIVE: The prostate gland is normal in size BONES: No acute fracture. There is redemonstration of a stable radiolucent lesion in the right iliac bone. OTHER FINDINGS: None. IMPRESSION: 6 mm stone in the left proximal ureter just distal to the UV junction, mild hydronephrosis and perinephric stretch stranding. Punctate nonobstructing stones in the lower pole of left kidney. Moderate hepatomegaly and fatty liver. Discussed with Dr. Davidson by phone, recommends Flomax, antibiotic, and urine culture and will see in office on Friday. Disposition Discussed With : Sunil Davidson Jr. Doctor Will See Patient In The: Office - Disposition Referrals: Sunil Davidson Jr., MD [Staff Provider] - Disposition: HOME/ ROUTINE Disposition Time: 15:08 Condition: STABLE Prescriptions: Ciprofloxacin [Cipro] 500 mg PO BID #14 tab Famotidine [Pepcid] 1 tab PO BID #14 tab Ibuprofen [Motrin] 600 mg PO Q6 #25 tab Ondansetron ODT [Zofran ODT] 4 mg PO Q8 #12 odt oxyCODONE/Acetaminophen [Percocet 5/325 mg Tab] 1 tab PO Q6 #10 tab Tamsulosin [Flomax] 0.4 mg PO DAILY #5 cap Instructions: Kidney Stones (DC) Forms: [employer] (Yemeni) - Clinical Impression Clinical Impression: Nephrolithiasis - Scribe Statement The provider has reviewed the documentation as recorded by the Scribe Capri Chalino Provider Attestation: All medical record entries made by the Stephan were at my direction and personally dictated by me. I have reviewed the chart and agree that the record accurately reflects my personal performance of the history, physical exam, medical decision making, and the department course for this patient. I have also personally directed, reviewed, and agree with the discharge instructions and disposition.
[2018-09-04 14:07] LABS: BASO # 0.1 K/uL (0.0-0.2); BASO % 0.8 % (0.0-2.0); EOS # 0.3 K/uL (0.0-0.7); EOS % 3.3 % (0.0-4.0); HEMOGLOBIN 15.2 g/dL (12.0-18.0); LYMPH # 1.1 K/uL (1.0-4.3); LYMPH % 10.7 % (20.0-40.0); MEAN CELL VOLUME 88.8 fL (80.0-94.0); MEAN CORPUSCULAR HEMOGLOBIN 30.8 pg (27.0-31.0); MEAN CORPUSCULAR HGB CONC 34.7 g/dL (33.0-37.0); MEAN PLATELET VOLUME 8.9 fL (7.2-11.7); MONO # 0.9 K/uL (0.0-0.8); MONO % 9.3 % (0.0-10.0); NEUT # 7.8 K/uL (1.8-7.0); NEUT % 75.9 % (50.0-75.0); RBC 4.94 Mil/uL (4.40-5.90); RED CELL DISTRIBUTION WIDTH 13.2 % (11.5-14.5); WHITE BLOOD COUNT 10.2 K/uL (4.8-10.8)
[2018-09-04 14:23] LABS: ALB/GLOB RATIO 1.3 (1.0-2.1); ALBUMIN 4.5 g/dL (3.5-5.0); ALT/SGPT 64 U/L (21-72); AST/SGOT 54 U/L (17-59); BLOOD UREA NITROGEN 16 mg/dL (9-20); CALCIUM 9.3 mg/dl (8.6-10.4); GFR NON-AFRICAN AMERICAN 59; LIPASE 82 U/L (23-300)
--- NOTE | 2018-09-04 15:11 | CT ---
Date of service: 09/04/2018 PROCEDURE: CT Abdomen and Pelvis without intravenous contrast HISTORY: L flank pain COMPARISON: 04/02/2018. TECHNIQUE: CT scan of the abdomen and pelvis was performed without administration of intravenous contrast. Oral contrast was not administered. Coronal and sagittal reformatted images were obtained. . Radiation dose: Total exam DLP = 877.16 mGy-cm. This CT exam was performed using one or more of the following dose reduction techniques: Automated exposure control, adjustment of the mA and/or kV according to patient size, and/or use of iterative reconstruction technique. FINDINGS: LOWER THORAX: The visualized lungs are clear. LIVER: Moderate hepatomegaly and diffuse fatty liver. No intrahepatic ductal dilatation. GALLBLADDER AND BILE DUCTS: No calcified gallstones. No biliary dilatation PANCREAS: Normal in size. No ductal dilatation. SPLEEN: Normal in size. ADRENALS: Normal in size. No discrete nodule. KIDNEYS AND URETERS: The right kidney is normal in size without nephrolithiasis. No hydronephrosis. There is a 6 mm stone in the left proximal ureteral just distal to the UV junction with mild dilatation of the renal pelvis, mild hydronephrosis, edema and enlargement of the left kidney and perinephric fat stranding. There are punctate nonobstructing stones in the lower pole of the left kidney. VASCULATURE: No aortic aneurysm. No aortic atherosclerotic calcification or mural plaque present. BOWEL: Evaluation of the bowel is limited in the absence of oral contrast. The small bowel loops are normal in caliber. Status post total colectomy. There are multiple presumable anterolisthesis in a bowel loop in the deep pelvis. PERITONEUM: No free fluid. No free air. LYMPH NODES: No enlarged lymph nodes. BLADDER: Well distended and grossly normal in appearance. REPRODUCTIVE: The prostate gland is normal in size BONES: No acute fracture. There is redemonstration of a stable radiolucent lesion in the right iliac bone. OTHER FINDINGS: None. IMPRESSION: 6 mm stone in the left proximal ureter just distal to the UV junction, mild hydronephrosis and perinephric stretch stranding. Punctate nonobstructing stones in the lower pole of left kidney. Moderate hepatomegaly and fatty liver.
[2018-09-04 15:36] VITALS: BP 118/75; PULSE 68
[2018-09-04 15:38] VITALS: O2SAT 99
[2018-09-04 16:10] LABS: SQUAMOUS EPITHIAL < 1 /hpf (0-5); URINE AMORPHOUS SEDIMENT RARE /ul (<OCC); URINE BILIRUBIN NEGATIVE (NEGATIVE); URINE CLARITY Hazy (Clear); URINE COLOR Yellow (YELLOW); URINE GLUCOSE (UA) NORMAL (Normal); URINE LEUKOCYTE ESTERASE NEG Leu/uL (Negative); URINE PROTEIN NEGATIVE (NEGATIVE); URINE URIC ACID CRYSTALS MOD /hpf (<OCC); URINE UROBILINOGEN NORMAL mg/dL (0.2-1.0)
[2018-09-04 16:11] LABS: URINE BLOOD 1+ (NEGATIVE)
[2018-09-04] MEDS ORDERED: Morphine 4 MG/ML VIAL ONE (16:31)
== END 2018-09-04 16:35 | disposition home or self-care (01) ==
LOC: C.ER 13:14
DX: N13.2 Hydronephrosis with renal and ureteral calculous obstruction (principal); Z87.442 Personal history of urinary calculi
CPT/HCPCS: 74176; 80053; 81001; 83690; 85025; 87086; 96361; 96374; 96375; 96376; 99285; J1885; J2270; J7030

== ENCOUNTER 2018-09-06 07:56 | Observation (INO) | payer MEDICAID ==
--- NOTE | 2018-09-06 08:04 | C.PDOC ---
History Of Present Illness 33 years old male with PMH kidney stones (Prior stent placed in March 2018) is sent to ED by Hernan Martinez to place a ureteral stent. Patient states he has a left sided kidney stone and currently reports left sided flank pain that has worsened since Friday. Patient also reports associated fever on Friday but denies any today. Denies vomiting or diarrhea. Patient states he is compliant with his medications and he last ate at 6pm last night. Per prior record: Patient evaluated 09/04/18 for flank pain and had labs and CT performed. CT showed 6 mm stone in the left proximal ureteral just distal to the UV junction with mild dilatation of the renal pelvis, mild hydronephrosis, edema and enlargement of the left kidney and perinephric fat stranding. Urology consult DR Davidson. Patient dishcarged and to follow up on Saturday 09/08 Time Seen by Provider: 09/06/18 08:20 History Per: Patient History/Exam Limitations: no limitations Onset/Duration Of Symptoms: Hrs Current Symptoms Are (Timing): Still Present Quality Of Discomfort: "Pain" Previous Symptoms: None Associated Symptoms: None Exacerbating Factor(s): Nothing Recent travel outside of the [place]: No Past Medical History Reviewed: Historical Data, Nursing Documentation, Vital Signs - Medical History PMH: Kidney Stones - [facility] Procedures DILATION OF LEFT URETER WITH INTRALUMINAL DEVICE, ENDO (04/02/18) FLUOROSCOPY OF LEFT KIDNEY, URETER AND BLADDER (04/02/18) OTHER SKIN & SUBQ I D (06/15/13) PERIRECTAL INCISION (09/26/13) PROCTOTOMY (10/24/13) Family History: States: Diabetes, Hypertension - Social History Hx Tobacco Use: No Hx Alcohol Use: No Hx Substance Use: No - Immunization History Hx Tetanus Toxoid Vaccination: Yes Hx Influenza Vaccination: No Hx Pneumococcal Vaccination: No Review Of Systems Constitutional: Negative for: Fever, Chills Gastrointestinal: Negative for: Nausea, Vomiting, Abdominal Pain, Diarrhea Genitourinary: Positive for: Dysuria Musculoskeletal: Positive for: Other (Left flank pain ) Skin: Negative for: Rash Neurological: Negative for: Weakness, Numbness Physical Exam - Physical Exam Appears: Non-toxic, No Acute Distress Skin: Normal Color, Warm, Dry, No Rash Head: Atraumatic, Normacephalic Eye(s): bilateral: Normal Inspection, PERRL, EOMI Oral Mucosa: Moist Neck: Normal ROM Chest: Symmetrical, No Tenderness Cardiovascular: Rhythm Regular Respiratory: Normal Breath Sounds, No Rales, No Rhonchi, No Wheezing Gastrointestinal/Abdominal: Bowel Sounds (Active ), Soft, No Tenderness, No Mass, No Distention, No Guarding Back: Normal Inspection, No CVA Tenderness, No Vertebral Tenderness, No Paraspinal Tenderness Extremity: Bilateral: Atraumatic, Normal Color And Temperature, Normal ROM Pulses: Left Radial: Normal, Right Radial: Normal Neurological/Psych: Oriented x3, Normal Speech Gait: Steady ED Course And Treatment - Laboratory Results Result Diagrams: 09/06/18 08:42 09/06/18 08:42 Medical Decision Making Medical Decision Making: Impression: Renal colic Prior record reviewed from 09/04/18: Patient evaluated for flank pain and had labs and CT performed. CT showed 6 mm stone in the left proximal ureteral just distal to the UV junction with mild dilatation of the renal pelvis, mild hydronephrosis, edema and enlargement of the left kidney and perinephric fat stranding. Urology consult DR Davidson. Patient dishcarged and to follow up on Saturday 09/08 Plan: * Morphine * IV Fluids * Blood work * Urinalysis Progress: 840 Spoke with Hernan Bertrand. Patient will be admitted. Plan is for OR stent placement 910 DR Janelle Lara calls ED to clarify this is his patient and wants patient admitted to medicine and will see tomorrow for stent placement. Contact Dr Ayon to inform patient in ED and plan for admission with urology consult and will need stent placement. She accepted patient to service Disposition - Disposition Disposition: HOSPITALIZED Disposition Time: 08:55 Condition: GOOD - POA Present On Arrival: None - Clinical Impression Clinical Impression: Nephrolithiasis, Renal colic on left side - PA / TRANSVERSE ABDOMINAL MUSCLE NURSE / Resident Statement MD/DO has reviewed & agrees with the documentation as recorded. - Scribe Statement The provider has reviewed the documentation as recorded by the Stephan Hinds All medical record entries made by the Kathrineibandria were at my direction and personall y dictated by me. I have reviewed the chart and agree that the record accurately reflects my personal performance of the history, physical exam, medical decision making, and the department course for this patient. I have also personally directed, reviewed, and agree with the discharge instructions and disposition. Decision To Admit - Pt Status Changed To: Hospital Disposition Of: Observation - . Bed Request Type: Regular Admitting Physician: Nancy Loredo Patient Diagnosis: Nephrolithiasis, Renal colic on left side
[2018-09-06 08:06] VITALS: BMI 32.8
[2018-09-06] MEDS ORDERED: Sodium Chloride 0.9% 1,000 ML IV ONE ×2 (08:20→10:17)
[2018-09-06] MEDS ORDERED: Sodium Chloride 0.9% 1,000 ML ONE ×2 (08:39→10:43)
[2018-09-06] MEDS ORDERED: Morphine 4 MG/ML VIAL ONE ×2 (08:39→10:43)
[2018-09-06 08:47] LABS: BASO # 0.1 K/uL (0.0-0.2); BASO % 0.6 % (0.0-2.0); EOS # 0.7 K/uL (0.0-0.7); EOS % 6.8 % (0.0-4.0); HEMOGLOBIN 15.4 g/dL (12.0-18.0); LYMPH # 1.6 K/uL (1.0-4.3); LYMPH % 16.3 % (20.0-40.0); MEAN CELL VOLUME 89.1 fL (80.0-94.0); MEAN CORPUSCULAR HEMOGLOBIN 30.6 pg (27.0-31.0); MEAN CORPUSCULAR HGB CONC 34.3 g/dL (33.0-37.0); MEAN PLATELET VOLUME 9.1 fL (7.2-11.7); MONO # 1.1 K/uL (0.0-0.8); MONO % 11.5 % (0.0-10.0); NEUT # 6.3 K/uL (1.8-7.0); NEUT % 64.8 % (50.0-75.0); NRBC % 0.1 % (0.0-2.0); RBC 5.04 Mil/uL (4.40-5.90); RED CELL DISTRIBUTION WIDTH 13.2 % (11.5-14.5); WHITE BLOOD COUNT 9.7 K/uL (4.8-10.8)
[2018-09-06 09:01] LABS: ALB/GLOB RATIO 1.2 (1.0-2.1); ALBUMIN 4.4 g/dL (3.5-5.0)
[2018-09-06 09:13] LABS: SQUAMOUS EPITHIAL 1 /hpf (0-5); URINE BILIRUBIN NEGATIVE (NEGATIVE); URINE BLOOD 1+ (NEGATIVE); URINE CLARITY Hazy (Clear); URINE COLOR Yellow (YELLOW); URINE GLUCOSE (UA) NORMAL (Normal); URINE LEUKOCYTE ESTERASE NEG Leu/uL (Negative); URINE PROTEIN 1+ mg/dL (NEGATIVE); URINE UROBILINOGEN NORMAL mg/dL (0.2-1.0)
[2018-09-06 09:17] LABS: PROTHROMBIN TIME 11.2 SECONDS (9.7-12.2)
--- NOTE | 2018-09-06 11:31 | RAD ---
Date of service: 09/06/2018 HISTORY: left kidney stone COMPARISON: CT abdomen and pelvis from 09/04/2018 FINDINGS: There is a 4 mm stone in the left proximal ureter at the level of transverse process of L2. There are no calcifications overlying the renal silhouette or along the course of the right ureteral. There are tiny phleboliths in the pelvis. BOWEL: Normal. No obstruction. No free air. BONES: Normal. OTHER FINDINGS: None. IMPRESSION: 4 mm left proximal ureteral stone at the level of transverse process of L2.
--- NOTE | 2018-09-06 16:59 | CP.PCM.HP ---
History of Present Illness - History of Present Illness History of Present Illness: kidney stone Pt is a 33 year old male admitted secondary to back pain, and hematuria. He presented to the ER two days ago with back pain and hematuria, was sent home with follow up with urology for outp treatment. Pt came back to the ER secondary to worse pain and hematuria. Pt reports prior episodes. Denies any other issues. Pt had total colon resection in the past due to familial polyposis. 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 family Father has poyposis KNDA pt denies any meds at home denies taking nsaids Present on Admission - Present on Admission Any Indicators Present on Admission: No Review of Systems - Constitutional Constitutional: absent: Chills, Daytime Sleepiness, Fatigue, Fever - EENT Eyes: absent: Blurred Vision - Cardiovascular Cardiovascular: absent: Chest Pain, Dyspnea on Exertion, Edema - Respiratory Respiratory: absent: Cough, Dyspnea, Hemoptysis - Gastrointestinal Gastrointestinal: absent: Abdominal Pain - Genitourinary Genitourinary: Flank Pain, Other (hematuria) Past Patient History - Infectious Disease Hx of Infectious Diseases: None - Past Medical History & Family History Past Medical History?: Yes - Past Social History Smoking Status: Never Smoked - CARDIAC Hx Cardiac Disorders: No - PULMONARY Hx Respiratory Disorders: No - NEUROLOGICAL Hx Neurological Disorder: No - HEENT Hx HEENT Problems: No - RENAL Hx Kidney Stones: Yes - ENDOCRINE/METABOLIC Hx Endocrine Disorders: No - HEMATOLOGICAL/ONCOLOGICAL Hx Blood Disorders: No - INTEGUMENTARY Hx Dermatological Problems: No - MUSCULOSKELETAL/RHEUMATOLOGICAL Hx Falls: No - GASTROINTESTINAL Hx Gastrointestinal Disorders: No - GENITOURINARY/GYNECOLOGICAL Hx Genitourinary Disorders: No - PSYCHIATRIC Hx Substance Use: No - SURGICAL HISTORY Hx Surgeries: Yes Other/Comment: total colectomy 2011= with stoma to left abdomen 2012 - ANESTHESIA Hx Anesthesia: Yes Hx Anesthesia Reactions: No Meds Allergies/Adverse Reactions: Allergies Allergy/AdvReac Type Severity Reaction Status Date / Time No Known Allergies Allergy Verified 09/04/18 13:30 Physical Exam - Constitutional Appears: Non-toxic - Eye Exam Eye Exam: Normal appearance - ENT Exam ENT Exam: Mucous Membranes Moist - Respiratory Exam Respiratory Exam: Clear to Auscultation Bilateral - Cardiovascular Exam Cardiovascular Exam: RRR, +S1, +S2. absent: JVD - GI/Abdominal Exam GI & Abdominal Exam: Normal Bowel Sounds. absent: Mass - Neurological Exam Neurological exam: Oriented x3 (cta bl) Results - Vital Signs Recent Vital Signs: Last Vital Signs Temp 97.8 F 09/06/18 15:35 Pulse 62 09/06/18 15:35 Resp 20 09/06/18 15:35 BP 110/62 09/06/18 15:35 Pulse Ox 99 09/06/18 15:53 - Labs Result Diagrams: 09/06/18 08:42 09/06/18 08:42 Labs: Laboratory Results - last 24 hr 09/06/18 09/06/18 09/06/18 08:42 08:42 09:03 WBC 9.7 RBC 5.04 Hgb 15.4 Hct 44.9 MCV 89.1 MCH 30.6 MCHC 34.3 RDW 13.2 Plt Count 244 MPV 9.1 Neut % (Auto) 64.8 Lymph % (Auto) 16.3 L [place] % (Auto) 11.5 H Eos % (Auto) 6.8 H Baso % (Auto) 0.6 Neut # (Auto) 6.3 Lymph # (Auto) 1.6 [place] # (Auto) 1.1 H Eos # (Auto) 0.7 Baso # (Auto) 0.1 PT INR APTT Sodium 138 Potassium 3.9 Chloride 102 Carbon Dioxide 24 Anion Gap 16 BUN 17 Creatinine 1.7 H Est GFR ( Amer) 57 Est GFR (Non-Af Amer) 47 Random Glucose 104 Calcium 9.0 Total Bilirubin 1.0 AST 29 ALT 50 Alkaline Phosphatase 97 Total Protein 8.0 Albumin 4.4 Globulin 3.7 Albumin/Globulin Ratio 1.2 Urine Color Yellow Urine Clarity Hazy Urine pH 5.0 Ur Specific [place] 1.024 Urine Protein 1+ H Urine Glucose (UA) Normal Urine Ketones Negative Urine Blood 1+ H Urine Nitrate Negative Urine Bilirubin Negative Urine Urobilinogen Normal Ur Leukocyte Esterase Neg Urine WBC (Auto) 1 Urine RBC (Auto) 4 H Ur Squamous Epith Cells 1 Blood Type Antibody Screen 09/06/18 09/06/18 09:03 09:03 WBC RBC Hgb Hct MCV MCH MCHC RDW Plt Count MPV Neut % (Auto) Lymph % (Auto) [place] % (Auto) Eos % (Auto) Baso % (Auto) Neut # (Auto) Lymph # (Auto) [place] # (Auto) Eos # (Auto) Baso # (Auto) PT 11.2 INR 1.0 APTT 30 Sodium Potassium Chloride Carbon Dioxide Anion Gap BUN Creatinine Est GFR ( Amer) Est GFR (Non-Af Amer) Random Glucose Calcium Total Bilirubin AST ALT Alkaline Phosphatase Total Protein Albumin Globulin Albumin/Globulin Ratio Urine Color Urine Clarity Urine pH Ur Specific [place] Urine Protein Urine Glucose (UA) Urine Ketones Urine Blood Urine Nitrate Urine Bilirubin Urine Urobilinogen Ur Leukocyte Esterase Urine WBC (Auto) Urine RBC (Auto) Ur Squamous Epith Cells Blood Type O POSITIVE Antibody Screen Negative Assessment & Plan - Assessment and Plan (Free Text) Assessment: Acute renal stone hematuria pain management elevater creat-pre renal azotemia admit ivf pain management gu eval cont flomax and cipro advised pt no NSAIDS
[2018-09-06] MEDS: Dextrose 5%/0.45% NS 1,000 ML IV SCH (17:07)
[2018-09-07] MEDS: Dextrose 5%/0.45% NS 1,000 ML IV SCH ×4 (01:45→22:02)
[2018-09-07 07:45] LABS: BLOOD UREA NITROGEN 15 mg/dL (9-20); GFR NON-AFRICAN AMERICAN 54
[2018-09-07 07:46] LABS: CALCIUM 8.8 mg/dl (8.6-10.4)
[2018-09-07] MEDS ORDERED: Propofol 10 mg/ml Inj (20 ML) ONE (14:02)
[2018-09-07] MEDS ORDERED: cefTRIAXone 1 gm 1 GM/100 ML BAG IVPB ONE (14:28)
[2018-09-07] MEDS ORDERED: Iohexol 240 (50 ml) ONE (14:35)
--- NOTE | 2018-09-07 14:39 | CP.PCM.CON ---
Past Patient History - Infectious Disease Hx of Infectious Diseases: None - Past Medical History & Family History Past Medical History?: Yes - Past Social History Smoking Status: Never Smoked - CARDIAC Hx Cardiac Disorders: No - PULMONARY Hx Respiratory Disorders: No - NEUROLOGICAL Hx Neurological Disorder: No - HEENT Hx HEENT Problems: No - RENAL Hx Kidney Stones: Yes - ENDOCRINE/METABOLIC Hx Endocrine Disorders: No - HEMATOLOGICAL/ONCOLOGICAL Hx Blood Disorders: No - INTEGUMENTARY Hx Dermatological Problems: No - MUSCULOSKELETAL/RHEUMATOLOGICAL Hx Falls: No - GASTROINTESTINAL Hx Gastrointestinal Disorders: No - GENITOURINARY/GYNECOLOGICAL Hx Genitourinary Disorders: No - PSYCHIATRIC Hx Substance Use: No - SURGICAL HISTORY Hx Surgeries: Yes Other/Comment: total colectomy 2011= with stoma to left abdomen 2011 - ANESTHESIA Hx Anesthesia: Yes Hx Anesthesia Reactions: No Meds Allergies/Adverse Reactions: Allergies Allergy/AdvReac Type Severity Reaction Status Date / Time No Known Allergies Allergy Verified 09/04/18 13:30 - Medications Medications: Current Medications Ciprofloxacin (Cipro) 500 mg PO BID COUNT INCLUDES THE [facility]; Protocol Last Admin: 09/07/18 10:07 Dose: Not Given Famotidine (Pepcid) 20 mg PO BID COUNT INCLUDES THE [facility] Last Admin: 09/07/18 10:07 Dose: Not Given Hydromorphone HCl (Dilaudid) 2 mg IVP Q4 PRN PRN Reason: pain Last Admin: 09/07/18 06:21 Dose: 2 mg Dextrose/Sodium Chloride (Dextrose 5%/0.45% Ns 1000 Ml) 1,000 mls @ 125 mls/hr IV .Q8H COUNT INCLUDES THE [facility] Last Admin: 09/07/18 10:30 Dose: 125 mls/hr Influenza Virus Vaccine (Fluzone Quad [id number]) 60 mcg IM .ONCE ONE Stop: 09/08/18 10:01 Ondansetron HCl (Zofran Tab) 4 mg PO Q8 PRN PRN Reason: Nausea/Vomiting Last Admin: 09/07/18 01:45 Dose: 4 mg Pneumococcal Polyvalent Vaccine (Pneumovax 23 Vaccine) 0.5 ml IM .ONCE ONE Stop: 09/08/18 10:01 Tamsulosin HCl (Flomax) 0.4 mg PO DAILY COUNT INCLUDES THE [facility] Last Admin: 09/07/18 10:07 Dose: Not Given Results - Vital Signs Recent Vital Signs: Last Vital Signs Temp 98.6 F 09/07/18 08:20 Pulse 82 09/07/18 08:20 Resp 20 09/07/18 08:20 BP 122/74 09/07/18 08:20 Pulse Ox 95 09/07/18 08:20 - Labs Result Diagrams: 09/06/18 08:42 09/07/18 06:54 Labs: Laboratory Results - last 24 hr 09/07/18 06:54 Sodium 136 Potassium 4.3 Chloride 98 Carbon Dioxide 29 Anion Gap 13 BUN 15 Creatinine 1.5 Est GFR ( Amer) > 60 Est GFR (Non-Af Amer) 54 Random Glucose 112 H Calcium 8.8 Magnesium 2.0 Assessment & Plan - Assessment and Plan (Free Text) Assessment: IMP: L renal colic Urolithiasis s/p colectomy,s/p small bowel resection full note tbd YS - Date & Time Date: 09/07/18 Time: 13:30
--- NOTE | 2018-09-07 14:59 | CP.PCM.PN ---
Subjective - Date & Time of Evaluation Date of Evaluation: 09/07/18 Time of Evaluation: 14:59 - Subjective Subjective: Pt going for procedure today Objective - Vital Signs/Intake and Output Vital Signs (last 24 hours): Temp Pulse Resp BP Pulse Ox 98.6 F 82 20 122/74 95 09/07/18 08:20 09/07/18 08:20 09/07/18 08:20 09/07/18 08:20 09/07/18 08:20 Intake and Output: 09/07/18 09/07/18 06:59 18:59 Intake Total 975 100 Balance 975 100 - Medications Medications: Current Medications Ciprofloxacin (Cipro) 500 mg PO BID [facility]; Protocol Last Admin: 09/07/18 10:07 Dose: Not Given Famotidine (Pepcid) 20 mg PO BID [facility] Last Admin: 09/07/18 10:07 Dose: Not Given Hydromorphone HCl (Dilaudid) 2 mg IVP Q4 PRN PRN Reason: pain Last Admin: 09/07/18 06:21 Dose: 2 mg Dextrose/Sodium Chloride (Dextrose 5%/0.45% Ns 1000 Ml) 1,000 mls @ 125 mls/hr IV .Q8H [facility] Last Admin: 09/07/18 10:30 Dose: 125 mls/hr Influenza Virus Vaccine (Fluzone Quad [id number]) 60 mcg IM .ONCE ONE Stop: 09/08/18 10:01 Ondansetron HCl (Zofran Tab) 4 mg PO Q8 PRN PRN Reason: Nausea/Vomiting Last Admin: 09/07/18 01:45 Dose: 4 mg Pneumococcal Polyvalent Vaccine (Pneumovax 23 Vaccine) 0.5 ml IM .ONCE ONE Stop: 09/08/18 10:01 Tamsulosin HCl (Flomax) 0.4 mg PO DAILY [facility] Last Admin: 09/07/18 10:07 Dose: Not Given - Labs Labs: 09/06/18 08:42 09/07/18 06:54 PT 11.2 SECONDS (9.7-12.2) 09/06/18 09:03 INR 1.0 09/06/18 09:03 APTT 30 SECONDS (21-34) 09/06/18 09:03 - Constitutional Appears: Well, Non-toxic - Eye Exam Eye Exam: Normal appearance - ENT Exam ENT Exam: Mucous Membranes Moist - Respiratory Exam Respiratory Exam: Clear to Ausculation Bilateral Assessment and Plan - Assessment and Plan (Free Text) Assessment: renal stone pain management npo for procedure flomax abx
--- NOTE | 2018-09-07 15:06 | PCM.SURG1 ---
Surgeon's Initial Post Op Note - Surgeon's Notes Surgeon: Humphrey Lara Forging Dies Final Finisher: none Type of Anesthesia: General LMA Pre-Operative Diagnosis: L renal colic. L hydronephrosis Operative Findings: same Post-Operative Diagnosis: same Operation Performed: cysto,. L rtg pyelogram. insertion of L ureteral stent Specimen/Specimens Removed: urine Estimated Blood Loss: EBL {In ML}: 0 Blood Products Given: N/A Post-Op Condition: Good Date of Surgery/Procedure: 09/07/18 Time of Surgery/Procedure: 15:06
[2018-09-07] MEDS ORDERED: HYDROmorphone 0.5 mg/0.5 ml ISec IVP PRN (15:17)
--- NOTE | 2018-09-07 16:17 | RAD ---
Date of service: 09/07/2018 PROCEDURE: Intraoperative Fluoroscopy. HISTORY: LEFT RENAL COLIC/LEFT HYDRONEPHROSIS FINDINGS: Fluoroscopic assistance was provided.. Fluoroscopy time = 26.1 sec. Radiation dose = 7.51 mGy. Please refer to the operative report from Dr. MCKEON, [place].
[2018-09-07] MEDS ORDERED: Dextrose 5%/0.45% NS 500 ML IV ONE (16:25)
[2018-09-07] MEDS: Lactated Ringer's 1,000 ML IV SCH (18:05)
[2018-09-08 00:47] VITALS: RESP 20
[2018-09-08] MEDS: Dextrose 5%/0.45% NS 1,000 ML IV SCH ×3 (01:00→08:57)
[2018-09-08 07:44] VITALS: TEMP 98.3
[2018-09-08] MEDS ORDERED: cefTRIAXone IV 1 gm in Dextros 50 ML IVPB ONE (08:30)
[2018-09-08] MEDS ORDERED: Pneumococcal 23-Valent Vaccine IM ONE (10:00)
[2018-09-08] MEDS ORDERED: Influenza Vaccine 60 MCG/0.5 ML SYR (3 yr & up) IM ONE (10:00)
[2018-09-08] MEDS: Lactated Ringer's 1,000 ML IV SCH (13:57)
--- NOTE | 2018-09-08 15:13 | CP.PCM.PN ---
Subjective - Date & Time of Evaluation Date of Evaluation: 09/08/18 Time of Evaluation: 15:13 - Subjective Subjective: alert, awake, ambulatory, no acute distress. Objective - Vital Signs/Intake and Output Vital Signs (last 24 hours): Temp Pulse Resp BP Pulse Ox 98.3 F 65 20 149/88 96 09/08/18 07:43 09/08/18 07:43 09/08/18 07:43 09/08/18 07:43 09/08/18 13:20 Intake and Output: 09/08/18 09/08/18 06:59 18:59 Intake Total 1400 2540 Balance 1400 2540 - Medications Medications: Current Medications Ciprofloxacin (Cipro) 500 mg PO BID [facility]; Protocol Last Admin: 09/08/18 09:07 Dose: 500 mg Famotidine (Pepcid) 20 mg PO BID [facility] Last Admin: 09/08/18 09:07 Dose: 20 mg Hydromorphone HCl (Dilaudid) 2 mg IVP Q4 PRN PRN Reason: pain Last Admin: 09/08/18 13:59 Dose: 2 mg Dextrose/Sodium Chloride (Dextrose 5%/0.45% Ns 1000 Ml) 1,000 mls @ 125 mls/hr IV .Q8H [facility] Last Admin: 09/08/18 08:57 Dose: Not Given Lactated Ringer's (Lactated Ringer's) 1,000 mls @ 100 mls/hr IV .Q10H [facility] Last Admin: 09/08/18 13:57 Dose: Not Given Ondansetron HCl (Zofran Tab) 4 mg PO Q8 PRN PRN Reason: Nausea/Vomiting Last Admin: 09/08/18 07:58 Dose: 4 mg Tamsulosin HCl (Flomax) 0.4 mg PO DAILY [facility] Last Admin: 09/08/18 09:07 Dose: 0.4 mg - Labs Labs: 09/06/18 08:42 09/07/18 06:54 PT 11.2 SECONDS (9.7-12.2) 09/06/18 09:03 INR 1.0 09/06/18 09:03 APTT 30 SECONDS (21-34) 09/06/18 09:03 Assessment and Plan - Assessment and Plan (Free Text) Assessment: 33 year old male, s/p cysto yesterday, seen and examined. Alert and orientedx3, ambulatory, no acute pain or distress, voiding well , no active bleeding. Cleared by DR Lara, discussed with DR Levi, plan to discharge home today. Advised to continue cipro at home and follow up in the office in [address] Lara and follow uo in the office as advised.
[2018-09-08 15:35] VITALS: BP 150/89; PULSE 64; O2SAT 95
--- NOTE | 2018-09-08 16:40 | CP.PCM.DIS ---
Provider - Provider Date of Admission: 09/06/18 08:42 Attending physician: Nancy Loredo MD Time Spent in preparation of Discharge (in minutes): 15 Hospital Course - Lab Results Lab Results: Micro Results 09/06/18 09:03 Urine Urine Culture - Final No Growth (<1,000 CFU/ML) Most Recent Lab Values WBC 9.7 K/uL (4.8-10.8) 12 08:42 RBC 5.04 Mil/uL (4.40-5.90) 12 08:42 Hgb 15.4 g/dL (12.0-18.0) 12 08:42 Hct 44.9 % (35.0-51.0) 12 08:42 MCV 89.1 fL (80.0-94.0) 12 08:42 MCH 30.6 pg (27.0-31.0) 12 08:42 MCHC 34.3 g/dL (33.0-37.0) 09/06/18 08:42 RDW 13.2 % (11.5-14.5) 09/06/18 08:42 Plt Count 244 K/uL (130-400) 09/06/18 08:42 MPV 9.1 fL (7.2-11.7) 09/06/18 08:42 Neut % (Auto) 64.8 % (50.0-75.0) 09/06/18 08:42 Lymph % (Auto) 16.3 % (20.0-40.0) L 09/06/18 08:42 [place] % (Auto) 11.5 % (0.0-10.0) H 09/06/18 08:42 Eos % (Auto) 6.8 % (0.0-4.0) H 09/06/18 08:42 Baso % (Auto) 0.6 % (0.0-2.0) 09/06/18 08:42 Neut # (Auto) 6.3 K/uL (1.8-7.0) 09/06/18 08:42 Lymph # (Auto) 1.6 K/uL (1.0-4.3) 09/06/18 08:42 [place] # (Auto) 1.1 K/uL (0.0-0.8) H 09/06/18 08:42 Eos # (Auto) 0.7 K/uL (0.0-0.7) 09/06/18 08:42 Baso # (Auto) 0.1 K/uL (0.0-0.2) 09/06/18 08:42 PT 11.2 SECONDS (9.7-12.2) 09/06/18 09:03 INR 1.0 09/06/18 09:03 APTT 30 SECONDS (21-34) 09/06/18 09:03 Sodium 136 mmol/L (132-148) 09/07/18 06:54 Potassium 4.3 mmol/L (3.6-5.2) 09/07/18 06:54 Chloride 98 mmol/L (98-107) 09/07/18 06:54 Carbon Dioxide 29 mmol/L (22-30) 09/07/18 06:54 Anion Gap 13 (10-20) 09/07/18 06:54 BUN 15 mg/dL (9-20) 09/07/18 06:54 Creatinine 1.5 mg/dL (0.8-1.5) 09/07/18 06:54 Est GFR ( Amer) > 60 09/07/18 06:54 Est GFR (Non-Af Amer) 54 09/07/18 06:54 Random Glucose 112 mg/dL (75-110) H 09/07/18 06:54 Uric Acid 5.2 mg/dL (3.5-8.5) 09/08/18 11:23 Calcium 8.8 mg/dl (8.6-10.4) 09/07/18 06:54 Magnesium 2.0 mg/dL (1.6-2.3) 09/07/18 06:54 Total Bilirubin 1.0 mg/dL (0.2-1.3) 09/06/18 08:42 AST 29 U/L (17-59) 09/06/18 08:42 ALT 50 U/L (21-72) 09/06/18 08:42 Alkaline Phosphatase 97 U/L (38-126) 09/06/18 08:42 Total Protein 8.0 g/dL (6.3-8.3) 09/06/18 08:42 Albumin 4.4 g/dL (3.5-5.0) 12 08:42 Globulin 3.7 gm/dL (2.2-3.9) 12 08:42 Albumin/Globulin Ratio 1.2 (1.0-2.1) 12 08:42 Urine Color Yellow (YELLOW) 12 09:03 Urine Clarity Hazy (Clear) 12 09:03 Urine pH 5.0 (5.0-8.0) 12 09:03 Ur Specific [place] 1.024 (1.003-1.030) 12 09:03 Urine Protein 1+ mg/dL (NEGATIVE) H 09/06/18 09:03 Urine Glucose (UA) Normal mg/dL (Normal) 09/06/18 09:03 Urine Ketones Negative mg/dL (NEGATIVE) 09/06/18 09:03 Urine Blood 1+ (NEGATIVE) H 09/06/18 09:03 Urine Nitrate Negative (NEGATIVE) 09/06/18 09:03 Urine Bilirubin Negative (NEGATIVE) 09/06/18 09:03 Urine Urobilinogen Normal mg/dL (0.2-1.0) 12 09:03 Ur Leukocyte Esterase Neg [place]o/uL (Negative) 09/06/18 09:03 Urine WBC (Auto) 1 /hpf (0-5) 12 09:03 Urine RBC (Auto) 4 /hpf (0-3) H 12 09:03 Ur Squamous Epith Cells 1 /hpf (0-5) 09/06/18 09:03 Blood Type O POSITIVE 09/06/18 09:03 Antibody Screen Negative 09/06/18 09:03 - Hospital Course Hospital Course: Pt was admitted for pain due to kidney stone PT was seen by urologyst for stent pt did well and sent home on cipro and flomax Discharge Exam - Eye Exam Eye Exam: Normal appearance - Respiratory Exam Respiratory Exam: Clear to PA & Lateral Discharge Plan - Follow Up Plan Condition: GOOD Instructions: Ureteral Stent (DC), Retrograde Pyelogram, Renal Colic (DC) Referrals: Nancy Loredo MD [Staff Provider] - Janelle Lara MD [Staff Provider] -
--- NOTE | 2018-09-10 06:30 | CON ---
DATE: 09/07/2018 Urology consultation is requested by Dr. Nancy Loredo. Urology consultation filled by Dr. Janelle Lara. REASON FOR CONSULTATION: Left renal colic. HISTORY OF PRESENT ILLNESS: The patient is a 33-year-old male with left flank pain. The patient presents with several-day history of left flank pain. The patient presented to the emergency room last week. He had left flank pain. There was associated nausea. No fever. No hematuria. The patient has history of previous urolithiasis. He previously underwent cystoscopy and stent insertion. He had subsequent treatment as well for a radiolucent stone involving the left upper ureter which was transposed, had stent insertion up to the left kidney. The patient subsequently had ESWL therapy for the stone. The patient suffered at stent removal. The patient now presents with left flank pain associated with nausea and vomiting. No hematuria. No fever. The patient was seen in the emergency room and discharged to home for followup. However, the pain increased. The patient represented to the emergency room on 09/06/2018. He is admitted for evaluation and therapy. The patient has had persistent pain while in the hospital. Has required analgesics. Mr. Mortensen was with the family. He has a significant past medical and surgical history. The patient has history of familial polyposis. He previously underwent colon resection. He also underwent small bowel resection. He has an ileostomy managed without a bag, but ravages with . The patient reports he has frequent bowel movements which are liquidy or semi-formed. No history of hypertension, diabetes, pneumonia, asthma, tuberculosis. The patient does not smoke. PHYSICAL EXAMINATION: GENERAL: The patient is a well-developed, well-nourished middle-aged male. The patient is awake and alert. ABDOMEN: Soft, nondistended, nontender. BACK: Moderate left CVA tenderness. GENITALIA: Without inflammation. LABORATORY DATA: Reviewed. CAT scan is reviewed as well. IMPRESSION: Left renal colic. Left upper ureteral calculus. Recurrent urolithiasis. RECOMMENDATIONS AND PLAN: In view of the persistent pain, the patient may require a stent insertion. The patient is advised regarding the options of therapy including continued monitoring with analgesics and tamsulosin. The patient prefers to have a cystoscopy and stent insertion. Possible ureteroscopy. Laser lithotripsy. Further therapy to follow according to the patient's clinical course as well as also above. [place] MD Jane cc: Nancy Loredo MD
--- NOTE | 2018-09-10 06:56 | OP ---
PROCEDURE DATE: 09/07/2018 PREOPERATIVE DIAGNOSIS: Left renal colic. POSTOPERATIVE DIAGNOSES: Left renal colic. Left hydronephrosis. PROCEDURES: Cystoscopy. Left retrograde pyelogram. Insertion of left ureteral stent. OPERATING SURGEON: Janelle Lara MD. PROCEDURE FOLLOWS: Plain film of the abdomen was obtained. There were no radiodense stones identified. The patient was placed in lithotomy position. The patient received perioperative antibiotics. The genitalia were prepped and draped in a sterile fashion. Anesthesia was applied by the anesthesiologist. A 22-Macedonian cystoscope sheath was introduced under direct vision. Urethra, prostate, bladder were inspected with 30-degree lens. FINDINGS: There was no stricture in the anterior urethra. Prostatic urethra was mildly occlusive. There was no bladder neck contracture. There was no bladder tumor. There were many yellow crystals within the bladder. These were irrigated free. The ureteral orifices were normal in position and shape. A 0.035-inch guidewire was inserted into the left ureteral orifice. The guidewire encountered obstruction in the area of the distal ureter, approximately 2 cm above the ureteral orifice. The guidewire was able to be advanced proximally up to level of kidney. An open-ended catheter was inserted over the guidewire. There was a brisk hydronephrotic drip. Iodinated contrast dye was instilled via the open-ended catheter. There was moderate hydronephrosis. The guidewire was reinserted. A 6-Macedonian multi-length stent was inserted over the guidewire. Proper position within the left kidney and within the bladder was confirmed with fluoroscopy and endoscopy. There was mildly cloudy urine noted draining through the ureteral stent. The bladder was then drained. Cystoscope sheath removed. Rectal examination was performed. There was no abnormal pelvic mass fixation or induration. Prostate was supple and smooth approximately 25 g in size. The patient was returned to the supine position. Janelle Lara MD cc: Shady Dove DO
== END 2018-09-08 16:59 | disposition home or self-care (01) ==
LOC: C.ER 07:56 → C.9E 08:42 → C.3T 14:51
PROVIDERS: ADMIT Internal Medicine; ATTEND Internal Medicine
DX: N13.30 Unspecified hydronephrosis (principal); Z87.442 Personal history of urinary calculi; Z90.49 Acquired absence of other specified parts of digestive tract; Z93.2 Ileostomy status
CPT/HCPCS: 36415; 52005; 52332; 74019; 80048; 80053; 81001; 83735; 84550; 85025; 85610; 85730; 86850; 86900; 87086; 96361; 96365; 96375; 96376; 99285; C1725; C1758; C1769; G0378; J0696; J1170; J1885; J2270; J2405; J2704; J3010; J7030; J7042; Q9966

== ENCOUNTER 2019-02-14 21:46 | Inpatient (IN) | payer MEDICAID ==
[2019-02-14 21:47] VITALS: BMI 32.8
[2019-02-14] MEDS ORDERED: Pantoprazole 80 MG in Sodium Chloride 0.9% 100 ML IV STA (22:11)
[2019-02-14] MEDS ORDERED: Sodium Chloride 0.9% 1,000 ML IV ONE (22:11)
--- NOTE | 2019-02-14 22:11 | C.PDOC ---
History Of Present Illness pt with hx familial poliposis and colon resection, presents with nausea, dizziness, and some blood in his stools. Pt had an endoscopy on 02/02. gr a stoma on the llq Time Seen by Provider: 02/14/19 22:10 Chief Complaint (Nursing): GI Problem History Per: Patient History/Exam Limitations: no limitations Onset/Duration Of Symptoms: Days Current Symptoms Are (Timing): Still Present Number Of Bleeding Episodes: Multiple: Amount of Blood Loss: Medium Severity: Moderate Pain Scale Rating Of: 4 Quality Of Discomfort: Dull Associated Symptoms: Vomiting. denies: Nausea Modifying Factors: None Recent travel outside of the [place]: No Additional History Per: Patient Past Medical History Reviewed: Historical Data, Nursing Documentation, Vital Signs Vital Signs: Last Vital Signs Temp 98.9 F 02/14/19 21:57 Pulse 112 H 02/14/19 21:57 Resp 18 02/14/19 21:57 BP 132/79 02/14/19 21:57 Pulse Ox 99 02/14/19 21:57 Primary Care Provider: Nancy Loredo - Medical History PMH: Asthma, Kidney Stones, Chronic Kidney Disease - [facility] Procedures DILATION OF LEFT URETER WITH INTRALUMINAL DEVICE, ENDO (04/02/18) FLUOROSCOPY OF LEFT KIDNEY, URETER AND BLADDER (04/02/18) OTHER SKIN & SUBQ I D (06/15/13) PERIRECTAL INCISION (09/26/13) PROCTOTOMY (10/24/13) Family History: States: Diabetes, Hypertension - Social History Hx Tobacco Use: No Hx Alcohol Use: No Hx Substance Use: No - Immunization History Hx Tetanus Toxoid Vaccination: Yes Hx Influenza Vaccination: No Hx Pneumococcal Vaccination: No Physical Exam - Physical Exam Appears: Non-toxic Skin: Warm, Dry Oral Mucosa: Dry Neck: Supple Chest: Symmetrical Cardiovascular: Rhythm Regular Respiratory: No Rales, No Rhonchi, No Wheezing Gastrointestinal/Abdominal: Soft, Tenderness (mild), No Distention, No Guarding, Other (llq stoma) Back: No CVA Tenderness Extremity: Normal ROM Extremity: Bilateral: Atraumatic Pulses: Left Dorsalis Pedis: Normal, Right Dorsalis Pedis: Normal Neurological/Psych: Oriented x3 Gait: Steady ED Course And Treatment - Laboratory Results Result Diagrams: 02/14/19 22:34 02/14/19 22:34 O2 Sat by Pulse Oximetry: 99 Pulse Ox Interpretation: Normal Progress Note: placed call to dr dane Laird [phone] ( his GI) Disposition Discussed With Dr.: Nancy Loredo Comment: accepted the pt [facility] er service and took over the care at 11:33 PM Doctor Will See Patient In The: Hospital Counseled Patient/Family Regarding: Studies Performed, Diagnosis - Disposition Disposition: HOSPITALIZED Disposition Time: 22:11 Condition: GUARDED Forms: [employer] (Tuvaluan) - Clinical Impression Clinical Impression: Gastrointestinal hemorrhage, Severe anemia Decision To Admit - Pt Status Changed To: Hospital Disposition Of: Inpatient - Admit Certification Admit to Inpatient:: After my assessment, the patient will require hospitalization for at least two midnights. This is because of the severity of symptoms shown, intensity of services needed, and/or the medical risk in this patient being treated as an outpatient. - InPatient: Physician Admission Certification: I certify that this patient requires 2 or mo re midnights of care for the following reason:: After my assessment, the patient will require hospitalization for at least two midnights. This is because of the severity of symptoms shown, intensity of services needed, and/or the medical risk in this patient being treated as an outpatient. - . Bed Request Type: Regular Admitting Physician: Nancy Loredo Patient Diagnosis: Gastrointestinal hemorrhage, Severe anemia
[2019-02-14 22:40] LABS: BASO # 0.1 K/uL (0.0-0.2); BASO % 0.7 % (0.0-2.0); EOS # 0.1 K/uL (0.0-0.7); EOS % 1.1 % (0.0-4.0); LYMPH # 2.2 K/uL (1.0-4.3); LYMPH % 16.5 % (20.0-40.0); MEAN CELL VOLUME 89.6 fL (80.0-94.0); MEAN CORPUSCULAR HEMOGLOBIN 30.4 pg (27.0-31.0); MEAN PLATELET VOLUME 9.2 fL (7.2-11.7); MONO # 0.9 K/uL (0.0-0.8); MONO % 6.5 % (0.0-10.0); NEUT # 9.9 K/uL (1.8-7.0); NEUT % 75.2 % (50.0-75.0); NRBC % 0.1 % (0.0-2.0); RBC 2.49 Mil/uL (4.40-5.90); WHITE BLOOD COUNT 13.2 K/uL (4.8-10.8)
[2019-02-14 22:42] LABS: HEMOGLOBIN 7.6 g/dL (12.0-18.0)
[2019-02-14 22:47] LABS: INR 1.1; PARTIAL THROMBOPLASTIN TIME 22.8 SECONDS (21-34); PROTHROMBIN TIME 12.5 SECONDS (9.7-12.2)
[2019-02-14 22:49] LABS: ALB/GLOB RATIO 1.5 (1.0-2.1); ALBUMIN 3.5 g/dL (3.5-5.0); ALT/SGPT 46 U/L (21-72); AST/SGOT 25 U/L (17-59); BLOOD UREA NITROGEN 23 mg/dL (9-20); CALCIUM 8.7 mg/dl (8.6-10.4); GFR NON-AFRICAN AMERICAN > 60
[2019-02-14] MEDS ORDERED: Iodixanol 320 MG/ML 100 ML BOTTLE IV ONE (23:44)
[2019-02-14] MEDS ORDERED: Potassium Ch 20mEq in D5W 1,000 ML IV SCH (23:45)
[2019-02-15] MEDS: Pantoprazole 80 MG in Sodium Chloride 0.9% 100 ML IVP SCH ×2 (01:37→12:11)
[2019-02-15] MEDS: Potassium Ch 20mEq in D5W 1,000 ML IV SCH ×2 (01:48→12:11)
[2019-02-15] MEDS ORDERED: metroNIDAZOLE IV 500 mg/100 ml 500 MG/100 ML BAG IVPB SCH (02:45)
[2019-02-15 06:56] LABS: BASO # 0.1 K/uL (0.0-0.2); BASO % 0.7 % (0.0-2.0); EOS # 0.4 K/uL (0.0-0.7); EOS % 3.6 % (0.0-4.0); LYMPH # 2.3 K/uL (1.0-4.3); LYMPH % 22.2 % (20.0-40.0); MEAN CELL VOLUME 90.9 fL (80.0-94.0); MEAN CORPUSCULAR HEMOGLOBIN 30.9 pg (27.0-31.0); MEAN PLATELET VOLUME 8.8 fL (7.2-11.7); MONO # 0.8 K/uL (0.0-0.8); MONO % 8.1 % (0.0-10.0); NEUT # 6.6 K/uL (1.8-7.0); NEUT % 65.4 % (50.0-75.0); NRBC % 0.2 % (0.0-2.0); RBC 2.04 Mil/uL (4.40-5.90); RED CELL DISTRIBUTION WIDTH 14.3 % (11.5-14.5); WHITE BLOOD COUNT 10.2 K/uL (4.8-10.8)
[2019-02-15 06:59] LABS: HEMOGLOBIN 6.3 g/dL (12.0-18.0)
[2019-02-15 07:07] LABS: ALB/GLOB RATIO 1.4 (1.0-2.1); ALBUMIN 2.9 g/dL (3.5-5.0); ALT/SGPT 40 U/L (21-72); AST/SGOT 21 U/L (17-59); BLOOD UREA NITROGEN 17 mg/dL (9-20); CALCIUM 7.9 mg/dl (8.6-10.4); GFR NON-AFRICAN AMERICAN > 60
[2019-02-15 08:37] LABS: SQUAMOUS EPITHIAL < 1 /hpf (0-5); URINE BILIRUBIN NEGATIVE (NEGATIVE); URINE BLOOD NEGATIVE (NEGATIVE); URINE CLARITY Clear (Clear); URINE COLOR Yellow (YELLOW); URINE GLUCOSE (UA) 1+ mg/dL (Normal); URINE LEUKOCYTE ESTERASE NEG Leu/uL (Negative); URINE PROTEIN NEGATIVE (NEGATIVE); URINE UROBILINOGEN NORMAL mg/dL (0.2-1.0)
[2019-02-15] MEDS ORDERED: ePHEDrine 50 mg/ml Inj ONE (08:52)
[2019-02-15] MEDS ORDERED: Lidocaine Hydrochloride 5 ML INJ ONE (08:52)
[2019-02-15] MEDS ORDERED: Propofol 10 mg/ml Inj (20 ML) ONE (08:52)
[2019-02-15] MEDS ORDERED: Midazolam 2 MG/2 ML VIAL ONE (08:52)
--- NOTE | 2019-02-15 09:02 | CT ---
Date of service: 02/15/2019 PROCEDURE: CT Abdomen and Pelvis with contrast HISTORY: gi bleed, colon resection COMPARISON: 04/02/2018, 09/04/[address] scans of the abdomen and pelvis. TECHNIQUE: Intravenous contrast dose: 100 cc Visipaque 320 Radiation dose: Total exam DLP = 748.33 mGy-cm. This CT exam was performed using one or more of the following dose reduction techniques: Automated exposure control, adjustment of the mA and/or kV according to patient size, and/or use of iterative reconstruction technique. FINDINGS: LOWER THORAX: Unremarkable. LIVER: Hepatic steatosis. No focal masses. No intrahepatic bile duct dilatation or perihepatic ascites. GALLBLADDER AND BILE DUCTS: Unremarkable. PANCREAS: Unremarkable. No gross lesion or ductal dilatation. SPLEEN: Unremarkable. ADRENALS: Unremarkable. No mass. KIDNEYS AND URETERS: Unremarkable. No hydronephrosis. No solid mass. VASCULATURE: Unremarkable. No aortic aneurysm. No atherosclerotic calcification or mural plaque present. BOWEL: Stable postoperative changes/colon resection. Left melanie pelvic enterostomy. APPENDIX: A normal appendix is not visible. PERITONEUM: Unremarkable. No free fluid. No free air. LYMPH NODES: Unremarkable. No enlarged lymph nodes. BLADDER: Unremarkable. REPRODUCTIVE: Unremarkable. BONES: No acute fracture. OTHER FINDINGS: None. IMPRESSION: No acute findings related to/ accounting for the clinical presentation. Additional benign and/or incidental findings described above. Concordant results (preliminary interpretation) provided by [facility]. Procedure Completed: 00:50. Preliminary Report: Interpreted and electronically signed: 02:25. Final Interpretation: 08:58.
--- NOTE | 2019-02-15 09:19 | CP.PCM.CON ---
History of Present Illness - History of Present Illness History of Present Illness: This is a 33 year old man with familial polyposis, S/P total colectomy, with anemia, blood per ileostomy. Patient had a total colectomy and Kendrick ileostomy at [facility]. 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 Two weeks ago, he underwent EGD at in [place] and a sessile olyp of the second portion of the duodenum was removed and hemostatic clips were placedwas told of an unresectable polyp at the papilla. He presented to the ER on the evening of 02/14/2019 with nausea, dizziness and blood per ileostomy. the initial hemoglobin was 7.6 which declined ot 6.3 on repeat. Review of Systems - Review of Systems All systems: reviewed and no additional remarkable complaints except - Cardiovascular Cardiovascular: absent: Chest Pain, Palpitations - Respiratory Respiratory: absent: Cough, Dyspnea - Gastrointestinal Gastrointestinal: Abdominal Pain, Hematochezia, Nausea. absent: Vomiting - Genitourinary Genitourinary: absent: Hematuria Past Patient History - Infectious Disease Hx of Infectious Diseases: None - Past Medical History & Family History Past Medical History?: Yes - Past Social History Smoking Status: Never Smoked - CARDIAC Hx Cardiac Disorders: No - PULMONARY Hx Asthma: Yes - NEUROLOGICAL Hx Neurological Disorder: No - HEENT Hx HEENT Problems: No - RENAL Hx Chronic Kidney Disease: Yes Hx Kidney Stones: Yes - ENDOCRINE/METABOLIC Hx Endocrine Disorders: No - HEMATOLOGICAL/ONCOLOGICAL Hx Blood Disorders: No - INTEGUMENTARY Hx Dermatological Problems: No - MUSCULOSKELETAL/RHEUMATOLOGICAL Hx Musculoskeletal Disorders: No Hx Falls: No - GASTROINTESTINAL Hx Gastrointestinal Disorders: No - GENITOURINARY/GYNECOLOGICAL Hx Genitourinary Disorders: No - PSYCHIATRIC Hx Substance Use: No - SURGICAL HISTORY Hx Surgeries: Yes Other/Comment: total colectomy 2011. ENDOSCOPY 02/02/2019 - ANESTHESIA Hx Anesthesia: Yes Hx Anesthesia Reactions: No Hx Malignant Hyperthermia: No Has any member of the family had a problem w/ anesthesia?: No Meds Allergies/Adverse Reactions: Allergies Allergy/AdvReac Type Severity Reaction Status Date / Time No Known Allergies Allergy Verified 02/14/19 22:00 - Medications Medications: Current Medications Acetaminophen (Tylenol 325mg Tab) 650 mg PO Q6 PRN PRN Reason: premedication Diphenhydramine HCl (Benadryl) 25 mg PO Q4 PRN PRN Reason: Premedication Pantoprazole Sodium 80 mg/ (Sodium Chloride) 100 mls @ 10 mls/hr IVP .Q10H SCOTT Last Admin: 02/15/19 01:37 Dose: 10 mls/hr Dextrose/Sodium Chloride (Dextrose 5%/0.9% Ns 1000 Ml) 1,000 mls @ 125 mls/hr IV .Q8H SCOTT Potassium Chloride/Dextrose (Potassium Chl 20 Meq In D5w) 1,000 mls @ 125 mls/hr IV .Q8H SCOTT Stop: 02/15/19 17:44 Last Admin: 02/15/19 01:48 Dose: 125 mls/hr Metronidazole (Flagyl) 500 mg in 100 mls @ 100 mls/hr IVPB STAT SCOTT; Protocol Last Admin: 02/15/19 02:55 Dose: 100 mls/hr Pneumococcal Polyvalent Vaccine (Pneumovax 23 Vaccine) 0.5 ml IM .ONCE ONE Stop: 02/17/19 10:01 Physical Exam - Head Exam Head Exam: ATRAUMATIC, NORMOCEPHALIC - Neck Exam Neck exam: Negative for: Lymphadenopathy, Thyromegaly - Respiratory Exam Respiratory Exam: NORMAL BREATHING PATTERN. absent: Rales, Rhonchi, Wheezes - Cardiovascular Exam Cardiovascular Exam: REGULAR RHYTHM, +S1, +S2. absent: Gallop, Rubs, Systolic Murmur - GI/Abdominal Exam GI & Abdominal Exam: Normal Bowel Sounds, Soft. absent: Organomegaly, Tenderness Additional comments: LLQ ILEOSTOMY - Extremities Exam Extremities exam: Negative for: calf tenderness, pedal edema Results - Vital Signs Recent Vital Signs: Last Vital Signs Temp 98.2 F 02/15/19 00:40 Pulse 106 H 02/15/19 00:40 Resp 16 02/15/19 00:40 BP 111/65 02/15/19 00:40 Pulse Ox 99 02/15/19 00:40 - Labs Result Diagrams: 02/16/19 07:24 02/16/19 07:24 Labs: Laboratory Results - last 24 hr 02/14/19 02/14/19 02/14/19 22:34 22:34 22:34 WBC 13.2 H RBC 2.49 L Hgb 7.6 L D Hct 22.3 L MCV 89.6 MCH 30.4 MCHC 34.0 RDW 14.0 Plt Count 237 MPV 9.2 Neut % (Auto) 75.2 H Lymph % (Auto) 16.5 L [place] % (Auto) 6.5 Eos % (Auto) 1.1 Baso % (Auto) 0.7 Neut # (Auto) 9.9 H Lymph # (Auto) 2.2 [place] # (Auto) 0.9 H Eos # (Auto) 0.1 Baso # (Auto) 0.1 PT 12.5 H INR 1.1 APTT 22.8 Sodium 136 Potassium 3.3 L Chloride 103 Carbon Dioxide 25 Anion Gap 12 BUN 23 H Creatinine 1.0 Est GFR ( Amer) > 60 Est GFR (Non-Af Amer) > 60 Random Glucose 145 H D Calcium 8.7 Phosphorus Magnesium Total Bilirubin 0.3 AST 25 ALT 46 Alkaline Phosphatase 67 Total Protein 6.0 L Albumin 3.5 D Globulin 2.4 Albumin/Globulin Ratio 1.5 Urine Color Urine Clarity Urine pH Ur Specific [place] Urine Protein Urine Glucose (UA) Urine Ketones Urine Blood Urine Nitrate Urine Bilirubin Urine Urobilinogen Ur Leukocyte Esterase Urine WBC (Auto) Urine RBC (Auto) Ur Squamous Epith Cells Blood Type Antibody Screen 02/14/19 02/15/19 02/15/19 22:34 06:45 06:45 WBC 10.2 RBC 2.04 L Hgb 6.3 L* Hct 18.5 L MCV 90.9 MCH 30.9 MCHC 34.0 RDW 14.3 Plt Count 201 MPV 8.8 Neut % (Auto) 65.4 Lymph % (Auto) 22.2 [place] % (Auto) 8.1 Eos % (Auto) 3.6 Baso % (Auto) 0.7 Neut # (Auto) 6.6 Lymph # (Auto) 2.3 [place] # (Auto) 0.8 Eos # (Auto) 0.4 Baso # (Auto) 0.1 PT INR APTT Sodium 138 Potassium 3.7 Chloride 109 H Carbon Dioxide 23 Anion Gap 10 BUN 17 Creatinine 0.8 Est GFR ( Amer) > 60 Est GFR (Non-Af Amer) > 60 Random Glucose 109 D Calcium 7.9 L Phosphorus 3.0 Magnesium 2.0 Total Bilirubin 0.2 AST 21 ALT 40 Alkaline Phosphatase 63 Total Protein 5.0 L Albumin 2.9 L Globulin 2.1 L Albumin/Globulin Ratio 1.4 Urine Color Urine Clarity Urine pH Ur Specific [place] Urine Protein Urine Glucose (UA) Urine Ketones Urine Blood Urine Nitrate Urine Bilirubin Urine Urobilinogen Ur Leukocyte Esterase Urine WBC (Auto) Urine RBC (Auto) Ur Squamous Epith Cells Blood Type O POSITIVE Antibody Screen Negative 02/15/19 02/15/19 08:17 08:17 WBC RBC Hgb Hct MCV MCH MCHC RDW Plt Count MPV Neut % (Auto) Lymph % (Auto) [place] % (Auto) Eos % (Auto) Baso % (Auto) Neut # (Auto) Lymph # (Auto) [place] # (Auto) Eos # (Auto) Baso # (Auto) PT INR APTT Sodium Potassium Chloride Carbon Dioxide Anion Gap BUN Creatinine Est GFR ( Amer) Est GFR (Non-Af Amer) Random Glucose Calcium Phosphorus Magnesium Total Bilirubin AST ALT Alkaline Phosphatase Total Protein Albumin Globulin Albumin/Globulin Ratio Urine Color Yellow Urine Clarity Clear Urine pH 5.0 Ur Specific [place] > 1.060 H Urine Protein Negative Urine Glucose (UA) 1+ H Urine Ketones Negative Urine Blood Negative Urine Nitrate Negative Urine Bilirubin Negative Urine Urobilinogen Normal Ur Leukocyte Esterase Neg Urine WBC (Auto) 2 Urine RBC (Auto) < 1 Ur Squamous Epith Cells < 1 Blood Type O POSITIVE Antibody Screen Negative Assessment & Plan (1) Gastrointestinal hemorrhage Assessment and Plan: Patient with bleeding per ileostomy. Will begin the workup with urgent EGD. Status: Acute
[2019-02-15] MEDS: Dextrose 5%/0.9% NS 1,000 ML IV SCH ×2 (15:45→21:43)
--- NOTE | 2019-02-15 16:53 | CP.PCM.HP ---
History of Present Illness - History of Present Illness History of Present Illness: cc; Melena HPI; PT is 33 year old with familial polypososi spb partial colon resection. Pt states that 4 years ago noted black color stools and ever since then. Pt states initially felt nausea, but since then mainly felt weak and light headed. pt denies any vomiting, Nsaids or ETHOH. Pt had EGD this Am. He was found to have gastric and duodenal polyps. DR. De Santiago that the clips form previous polypectomy had fallen off, so the bleeding could have been related to that. PMH anxiety familial polyposis chronic pain meds; none allergies; none no tob denies ethoh Present on Admission - Present on Admission Any Indicators Present on Admission: No Review of Systems - Constitutional Constitutional: absent: Daytime Sleepiness - EENT Eyes: absent: Diplopia Nose/Mouth/Throat: absent: Epistaxis, Nasal Congestion - Cardiovascular Cardiovascular: Lightheadedness. absent: Chest Pain, Chest Pain with Activity, Palpitations - Respiratory Respiratory: absent: Cough, Dyspnea, Hemoptysis - Gastrointestinal Gastrointestinal: Change in Bowel Habits, Loose Stools, Melena - Genitourinary Genitourinary: absent: Change in Urinary Stream, Hematuria Past Patient History - Infectious Disease Hx of Infectious Diseases: None - Past Medical History & Family History Past Medical History?: Yes - Past Social History Smoking Status: Never Smoked - CARDIAC Hx Cardiac Disorders: No - PULMONARY Hx Asthma: Yes - NEUROLOGICAL Hx Neurological Disorder: No - HEENT Hx HEENT Problems: No - RENAL Hx Chronic Kidney Disease: Yes Hx Kidney Stones: Yes - ENDOCRINE/METABOLIC Hx Endocrine Disorders: No - HEMATOLOGICAL/ONCOLOGICAL Hx Blood Disorders: No - INTEGUMENTARY Hx Dermatological Problems: No - MUSCULOSKELETAL/RHEUMATOLOGICAL Hx Musculoskeletal Disorders: No Hx Falls: No - GASTROINTESTINAL Hx Gastrointestinal Disorders: No - GENITOURINARY/GYNECOLOGICAL Hx Genitourinary Disorders: No - PSYCHIATRIC Hx Substance Use: No - SURGICAL HISTORY Hx Surgeries: Yes Other/Comment: total colectomy 2012. ENDOSCOPY 02/02/2019 - ANESTHESIA Hx Anesthesia: Yes Hx Anesthesia Reactions: No Hx Malignant Hyperthermia: No Has any member of the family had a problem w/ anesthesia?: No Meds Allergies/Adverse Reactions: Allergies Allergy/AdvReac Type Severity Reaction Status Date / Time No Known Allergies Allergy Verified 02/14/19 22:00 Physical Exam - Constitutional Appears: Non-toxic - Eye Exam Eye Exam: Normal appearance - ENT Exam ENT Exam: Mucous Membranes Moist - Respiratory Exam Respiratory Exam: Clear to Auscultation Bilateral, NORMAL BREATHING PATTERN - Cardiovascular Exam Cardiovascular Exam: REGULAR RHYTHM, RRR, +S1, +S2. absent: JVD, Rubs, +S4, Systolic Murmur - GI/Abdominal Exam GI & Abdominal Exam: Normal Bowel Sounds, Soft, Tenderness (epigastric tenderness). absent: Distended, Guarding Results - Vital Signs Recent Vital Signs: Last Vital Signs Temp 97.8 F 02/15/19 16:21 Pulse 96 H 02/15/19 16:21 Resp 18 02/15/19 16:21 BP 108/54 L 02/15/19 16:21 Pulse Ox 97 02/15/19 15:00 - Labs Result Diagrams: 02/15/19 06:45 02/15/19 06:45 Labs: Laboratory Results - last 24 hr 02/14/19 02/14/19 02/14/19 22:34 22:34 22:34 WBC 13.2 H RBC 2.49 L Hgb 7.6 L D Hct 22.3 L MCV 89.6 MCH 30.4 MCHC 34.0 RDW 14.0 Plt Count 237 MPV 9.2 Neut % (Auto) 75.2 H Lymph % (Auto) 16.5 L [place] % (Auto) 6.5 Eos % (Auto) 1.1 Baso % (Auto) 0.7 Neut # (Auto) 9.9 H Lymph # (Auto) 2.2 [place] # (Auto) 0.9 H Eos # (Auto) 0.1 Baso # (Auto) 0.1 PT 12.5 H INR 1.1 APTT 22.8 Sodium 136 Potassium 3.3 L Chloride 103 Carbon Dioxide 25 Anion Gap 12 BUN 23 H Creatinine 1.0 Est GFR ( Amer) > 60 Est GFR (Non-Af Amer) > 60 Random Glucose 145 H D Calcium 8.7 Phosphorus Magnesium Total Bilirubin 0.3 AST 25 ALT 46 Alkaline Phosphatase 67 Total Protein 6.0 L Albumin 3.5 D Globulin 2.4 Albumin/Globulin Ratio 1.5 Urine Color Urine Clarity Urine pH Ur Specific [place] Urine Protein Urine Glucose (UA) Urine Ketones Urine Blood Urine Nitrate Urine Bilirubin Urine Urobilinogen Ur Leukocyte Esterase Urine WBC (Auto) Urine RBC (Auto) Ur Squamous Epith Cells Blood Type Antibody Screen 02/14/19 02/15/19 02/15/19 22:34 06:45 06:45 WBC 10.2 RBC 2.04 L Hgb 6.3 L* Hct 18.5 L MCV 90.9 MCH 30.9 MCHC 34.0 RDW 14.3 Plt Count 201 MPV 8.8 Neut % (Auto) 65.4 Lymph % (Auto) 22.2 [place] % (Auto) 8.1 Eos % (Auto) 3.6 Baso % (Auto) 0.7 Neut # (Auto) 6.6 Lymph # (Auto) 2.3 [place] # (Auto) 0.8 Eos # (Auto) 0.4 Baso # (Auto) 0.1 PT INR APTT Sodium 138 Potassium 3.7 Chloride 109 H Carbon Dioxide 23 Anion Gap 10 BUN 17 Creatinine 0.8 Est GFR ( Amer) > 60 Est GFR (Non-Af Amer) > 60 Random Glucose 109 D Calcium 7.9 L Phosphorus 3.0 Magnesium 2.0 Total Bilirubin 0.2 AST 21 ALT 40 Alkaline Phosphatase 63 Total Protein 5.0 L Albumin 2.9 L Globulin 2.1 L Albumin/Globulin Ratio 1.4 Urine Color Urine Clarity Urine pH Ur Specific [place] Urine Protein Urine Glucose (UA) Urine Ketones Urine Blood Urine Nitrate Urine Bilirubin Urine Urobilinogen Ur Leukocyte Esterase Urine WBC (Auto) Urine RBC (Auto) Ur Squamous Epith Cells Blood Type O POSITIVE Antibody Screen Negative 02/15/19 02/15/19 08:17 08:17 WBC RBC Hgb Hct MCV MCH MCHC RDW Plt Count MPV Neut % (Auto) Lymph % (Auto) [place] % (Auto) Eos % (Auto) Baso % (Auto) Neut # (Auto) Lymph # (Auto) [place] # (Auto) Eos # (Auto) Baso # (Auto) PT INR APTT Sodium Potassium Chloride Carbon Dioxide Anion Gap BUN Creatinine Est GFR ( Amer) Est GFR (Non-Af Amer) Random Glucose Calcium Phosphorus Magnesium Total Bilirubin AST ALT Alkaline Phosphatase Total Protein Albumin Globulin Albumin/Globulin Ratio Urine Color Yellow Urine Clarity Clear Urine pH 5.0 Ur Specific [place] > 1.060 H Urine Protein Negative Urine Glucose (UA) 1+ H Urine Ketones Negative Urine Blood Negative Urine Nitrate Negative Urine Bilirubin Negative Urine Urobilinogen Normal Ur Leukocyte Esterase Neg Urine WBC (Auto) 2 Urine RBC (Auto) < 1 Ur Squamous Epith Cells < 1 Blood Type O POSITIVE Antibody Screen Negative Assessment & Plan - Assessment and Plan (Free Text) Assessment: Upper gi bleed drop in hgb overnight transfused two units prbc fluids npo ppi drip follow hgb closely ____ pain management anxiety meds
[2019-02-15] MEDS: Pantoprazole 80 MG in Sodium Chloride 0.9% 100 ML IVPB SCH (19:33)
[2019-02-16] MEDS: Dextrose 5%/0.9% NS 1,000 ML IV SCH ×5 (00:41→18:03)
[2019-02-16] MEDS: Pantoprazole 80 MG in Sodium Chloride 0.9% 100 ML IVPB SCH ×5 (01:00→23:05)
[2019-02-16 01:14] VITALS: RESP 20
[2019-02-16 07:36] LABS: BASO % 0.7 % (0.0-2.0); EOS # 0.4 K/uL (0.0-0.7); LYMPH # 1.3 K/uL (1.0-4.3); LYMPH % 23.1 % (20.0-40.0); MEAN CELL VOLUME 89.6 fL (80.0-94.0); MEAN CORPUSCULAR HEMOGLOBIN 30.2 pg (27.0-31.0); MEAN CORPUSCULAR HGB CONC 33.7 g/dL (33.0-37.0); MEAN PLATELET VOLUME 8.8 fL (7.2-11.7); MONO # 0.4 K/uL (0.0-0.8); MONO % 7.2 % (0.0-10.0); NEUT # 3.4 K/uL (1.8-7.0); NRBC % 0.1 % (0.0-2.0); RBC 2.64 Mil/uL (4.40-5.90); RED CELL DISTRIBUTION WIDTH 14.1 % (11.5-14.5); WHITE BLOOD COUNT 5.6 K/uL (4.8-10.8)
[2019-02-16 09:43] LABS: BLOOD UREA NITROGEN 13 mg/dL (9-20); GFR NON-AFRICAN AMERICAN > 60
[2019-02-16] MEDS ORDERED: Pneumococcal 23-Valent Vaccine IM ONE (10:00)
--- NOTE | 2019-02-16 14:02 | CP.PCM.PN ---
Subjective - Date & Time of Evaluation Date of Evaluation: 02/16/19 Time of Evaluation: 13:59 - Subjective Subjective: Patient denies having nausea and vomiting. He states that the stools remain dark, but not as dark as yesterday. He wants to eat. Objective - Vital Signs/Intake and Output Vital Signs (last 24 hours): Temp Pulse Resp BP Pulse Ox 97.6 F 82 20 113/69 97 02/16/19 08:08 02/16/19 08:08 02/16/19 08:08 02/16/19 08:08 02/16/19 08:08 Intake and Output: 02/16/19 02/16/19 06:59 18:59 Intake Total 1135 1180 Balance 1135 1180 - Medications Medications: Current Medications Acetaminophen (Tylenol 325mg Tab) 650 mg PO Q6 PRN PRN Reason: premedication Last Admin: 02/15/19 23:40 Dose: 650 mg Alprazolam (Xanax) 0.25 mg PO TID PRN PRN Reason: Anxiety Stop: 02/22/19 18:01 Last Admin: 02/15/19 22:00 Dose: 0.25 mg Diphenhydramine HCl (Benadryl) 25 mg PO Q4 PRN PRN Reason: Premedication Last Admin: 02/15/19 17:57 Dose: 25 mg Dextrose/Sodium Chloride (Dextrose 5%/0.9% Ns 1000 Ml) 1,000 mls @ 125 mls/hr IV .Q8H SCOTT Last Admin: 02/16/19 09:05 Dose: Not Given Metronidazole (Flagyl) 500 mg in 100 mls @ 100 mls/hr IVPB STAT SCOTT; Protocol Last Admin: 02/15/19 02:55 Dose: 100 mls/hr Pantoprazole Sodium 80 mg/ (Sodium Chloride) 100 mls @ 10 mls/hr IVPB .Q10H SCOTT Last Admin: 02/16/19 13:44 Dose: 10 mls/hr Morphine Sulfate (Morphine) 2 mg IVP Q6 PRN PRN Reason: Pain, moderate (4-7) Last Admin: 02/16/19 09:24 Dose: 2 mg Pneumococcal Polyvalent Vaccine (Pneumovax 23 Vaccine) 0.5 ml IM .ONCE ONE Stop: 02/17/19 10:01 - Labs Labs: 02/16/19 07:24 02/16/19 07:24 PT 12.5 SECONDS (9.7-12.2) H 02/14/19 22:34 INR 1.1 02/14/19 22:34 APTT 22.8 SECONDS (21-34) 02/14/19 22:34 - Constitutional Appears: No Acute Distress - Head Exam Head Exam: ATRAUMATIC, NORMOCEPHALIC - Neck Exam Neck Exam: absent: Lymphadenopathy, Thyromegaly - Respiratory Exam Respiratory Exam: NORMAL BREATHING PATTERN. absent: Rales, Rhonchi, Wheezes - Cardiovascular Exam Cardiovascular Exam: REGULAR RHYTHM, +S1, +S2. absent: Gallop, Rubs, Murmur - GI/Abdominal Exam GI & Abdominal Exam: Soft, Normal Bowel Sounds. 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 The HGB from this morning is 8.0. Will repeat CBC this evening. Advance diet. Status: Acute
--- NOTE | 2019-02-16 17:06 | CP.PCM.PN ---
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 wants to eat more had clear liquids and chips with no issues sp 2 units prbc hgb up to 8 Objective - Vital Signs/Intake and Output Vital Signs (last 24 hours): Temp Pulse Resp BP Pulse Ox 97.9 F 86 20 131/70 95 02/16/19 16:00 02/16/19 16:00 02/16/19 16:00 02/16/19 16:00 02/16/19 16:00 Intake and Output: 02/16/19 02/16/19 06:59 18:59 Intake Total 1135 1180 Balance 1135 1180 - Medications Medications: Current Medications Acetaminophen (Tylenol 325mg Tab) 650 mg PO Q6 PRN PRN Reason: premedication Last Admin: 02/15/19 23:40 Dose: 650 mg Alprazolam (Xanax) 0.25 mg PO TID PRN PRN Reason: Anxiety Stop: 02/22/19 18:01 Last Admin: 02/15/19 22:00 Dose: 0.25 mg Diphenhydramine HCl (Benadryl) 25 mg PO Q4 PRN PRN Reason: Premedication Last Admin: 02/15/19 17:57 Dose: 25 mg Dextrose/Sodium Chloride (Dextrose 5%/0.9% Ns 1000 Ml) 1,000 mls @ 125 mls/hr IV .Q8H [facility] Last Admin: 02/16/19 09:05 Dose: Not Given Metronidazole (Flagyl) 500 mg in 100 mls @ 100 mls/hr IVPB STAT [facility]; Protocol Last Admin: 02/15/19 02:55 Dose: 100 mls/hr Pantoprazole Sodium 80 mg/ (Sodium Chloride) 100 mls @ 10 mls/hr IVPB .Q10H [facility] Last Admin: 02/16/19 14:55 Dose: Not Given Morphine Sulfate (Morphine) 2 mg IVP Q6 PRN PRN Reason: Pain, moderate (4-7) Last Admin: 02/16/19 09:24 Dose: 2 mg Pneumococcal Polyvalent Vaccine (Pneumovax 23 Vaccine) 0.5 ml IM .ONCE ONE Stop: 02/17/19 10:01 - Labs Labs: 02/16/19 07:24 02/16/19 07:24 PT 12.5 SECONDS (9.7-12.2) H 02/14/19 22:34 INR 1.1 02/14/19 22:34 APTT 22.8 SECONDS (21-34) 02/14/19 22:34 - Constitutional Appears: Non-toxic - Eye Exam Eye Exam: Normal appearance - ENT Exam ENT Exam: Mucous Membranes Moist - Respiratory Exam Respiratory Exam: Clear to Ausculation Bilateral - Cardiovascular Exam Cardiovascular Exam: REGULAR RHYTHM, +S1, +S2. absent: JVD - GI/Abdominal Exam GI & Abdominal Exam: Soft, Normal Bowel Sounds - Extremities Exam Extremities Exam: Normal Inspection. absent: Pedal Edema - Neurological Exam Neurological Exam: Alert, Awake, Oriented x3 Assessment and Plan - Assessment and Plan (Free Text) Assessment: sp gi bleed hgb better advance diet as tolerated cbc in am
[2019-02-17] MEDS: Dextrose 5%/0.9% NS 1,000 ML IV SCH ×3 (00:04→08:15)
[2019-02-17] MEDS: Pantoprazole 80 MG in Sodium Chloride 0.9% 100 ML IVPB SCH ×3 (01:24→12:00)
[2019-02-17 07:32] LABS: BLOOD UREA NITROGEN 10 mg/dL (9-20); CALCIUM 8.2 mg/dl (8.6-10.4); GFR NON-AFRICAN AMERICAN > 60
[2019-02-17 07:37] LABS: BASO % 0.7 % (0.0-2.0); EOS # 0.5 K/uL (0.0-0.7); EOS % 8.3 % (0.0-4.0); HEMOGLOBIN 8.3 g/dL (12.0-18.0); LYMPH # 1.4 K/uL (1.0-4.3); LYMPH % 23.3 % (20.0-40.0); MEAN CELL VOLUME 89.7 fL (80.0-94.0); MEAN CORPUSCULAR HEMOGLOBIN 30.2 pg (27.0-31.0); MEAN CORPUSCULAR HGB CONC 33.7 g/dL (33.0-37.0); MEAN PLATELET VOLUME 8.8 fL (7.2-11.7); MONO # 0.5 K/uL (0.0-0.8); MONO % 7.7 % (0.0-10.0); NEUT # 3.6 K/uL (1.8-7.0); NRBC % 0.2 % (0.0-2.0); RBC 2.73 Mil/uL (4.40-5.90); RED CELL DISTRIBUTION WIDTH 14.3 % (11.5-14.5)
--- NOTE | 2019-02-17 08:03 | CP.PCM.PN ---
Subjective - Date & Time of Evaluation Date of Evaluation: 02/17/19 Time of Evaluation: 08:03 - Subjective Subjective: Patient denies having nausea, vomiting He reports that stool from ileostomy is now brown. He is tolerating a low residue diet Hemoglobin from this morning is 8.3. Objective - Vital Signs/Intake and Output Vital Signs (last 24 hours): Temp Pulse Resp BP Pulse Ox 97.8 F 71 20 112/69 96 02/17/19 00:00 02/17/19 00:00 02/17/19 00:00 02/17/19 00:00 02/17/19 00:00 Intake and Output: 02/17/19 02/17/19 06:59 18:59 Intake Total 1450 1240 Balance 1450 1240 - Medications Medications: Current Medications Acetaminophen (Tylenol 325mg Tab) 650 mg PO Q6 PRN PRN Reason: premedication Last Admin: 02/16/19 20:50 Dose: 650 mg Alprazolam (Xanax) 0.25 mg PO TID PRN PRN Reason: Anxiety Stop: 02/22/19 18:01 Last Admin: 02/16/19 20:50 Dose: 0.25 mg Diphenhydramine HCl (Benadryl) 25 mg PO Q4 PRN PRN Reason: Premedication Last Admin: 02/15/19 17:57 Dose: 25 mg Dextrose/Sodium Chloride (Dextrose 5%/0.9% Ns 1000 Ml) 1,000 mls @ 125 mls/hr IV .Q8H [facility] Last Admin: 02/17/19 02:28 Dose: 125 mls/hr Metronidazole (Flagyl) 500 mg in 100 mls @ 100 mls/hr IVPB STAT [facility]; Protocol Last Admin: 02/15/19 02:55 Dose: 100 mls/hr Pantoprazole Sodium 80 mg/ (Sodium Chloride) 100 mls @ 10 mls/hr IVPB .Q10H [facility] Last Admin: 02/17/19 01:24 Dose: Not Given Morphine Sulfate (Morphine) 2 mg IVP Q6 PRN PRN Reason: Pain, moderate (4-7) Last Admin: 02/17/19 03:16 Dose: 2 mg Pneumococcal Polyvalent Vaccine (Pneumovax 23 Vaccine) 0.5 ml IM .ONCE ONE Stop: 02/17/19 10:01 - Labs Labs: 05/22/19 06:50 02/17/19 06:50 PT 12.5 SECONDS (9.7-12.2) H 02/14/19 22:34 INR 1.1 02/14/19 22:34 APTT 22.8 SECONDS (21-34) 02/14/19 22:34 - Constitutional Appears: No Acute Distress - Head Exam Head Exam: ATRAUMATIC, NORMOCEPHALIC - Eye Exam Eye Exam: EOMI, PERRL - Neck Exam Neck Exam: absent: Lymphadenopathy, Thyromegaly - Respiratory Exam Respiratory Exam: NORMAL BREATHING PATTERN. absent: Rhonchi, Wheezes, Stridor - Cardiovascular Exam Cardiovascular Exam: REGULAR RHYTHM, +S1, +S2. absent: Gallop, Rubs, Murmur - GI/Abdominal Exam GI & Abdominal Exam: Soft, Normal Bowel Sounds. absent: Tenderness, Mass, Organomegaly Additional comments: LLQ ileostomy - Rectal Exam Rectal Exam: Deferred - Extremities Exam Extremities Exam: absent: Calf Tenderness, Pedal Edema Assessment and Plan (1) Gastrointestinal hemorrhage Assessment & Plan: Patient states that the ileostomy effluent is now brown. He is tolerating a low-residue diet. Hemoglobin increased slightly to 8.3. I spoke to Dr. Laird at [facility] who will see patient at the clinic. Status: Acute
[2019-02-17] MEDS ORDERED: Pneumococcal 23-Valent Vaccine IM ONE (10:00)
[2019-02-17 15:54] VITALS: BP 122/70; PULSE 89; TEMP 98; O2SAT 97
--- NOTE | 2019-02-17 15:58 | CP.PCM.PN ---
Subjective - Date & Time of Evaluation Date of Evaluation: 02/17/19 Time of Evaluation: 13:00 - Subjective Subjective: Patient seen today , after endoscopy , denies any abdominal pain, N/V/ , no reported bleeding hgb - improved- after PRBC transfusion - 8.3 s/p EGD -( see full report for details) Patient tolerated regular diet after EGD without any issues Objective - Vital Signs/Intake and Output Vital Signs (last 24 hours): Temp Pulse Resp BP Pulse Ox 98.0 F 89 20 122/70 97 02/17/19 15:00 02/17/19 15:00 02/17/19 15:00 02/17/19 15:00 02/17/19 15:00 Intake and Output: 02/17/19 02/17/19 06:59 18:59 Intake Total 1450 2800 Balance 1450 2800 - Medications Medications: Current Medications Acetaminophen (Tylenol 325mg Tab) 650 mg PO Q6 PRN PRN Reason: premedication Last Admin: 02/16/19 20:50 Dose: 650 mg Alprazolam (Xanax) 0.25 mg PO TID PRN PRN Reason: Anxiety Stop: 02/22/19 18:01 Last Admin: 02/16/19 20:50 Dose: 0.25 mg Diphenhydramine HCl (Benadryl) 25 mg PO Q4 PRN PRN Reason: Premedication Last Admin: 02/15/19 17:57 Dose: 25 mg Dextrose/Sodium Chloride (Dextrose 5%/0.9% Ns 1000 Ml) 1,000 mls @ 125 mls/hr IV .Q8H [facility] Last Admin: 02/17/19 08:15 Dose: 125 mls/hr Metronidazole (Flagyl) 500 mg in 100 mls @ 100 mls/hr IVPB STAT [facility]; Protocol Last Admin: 02/15/19 02:55 Dose: 100 mls/hr Pantoprazole Sodium 80 mg/ (Sodium Chloride) 100 mls @ 10 mls/hr IVPB .Q10H [facility] Last Admin: 02/17/19 12:00 Dose: Not Given Morphine Sulfate (Morphine) 2 mg IVP Q6 PRN PRN Reason: Pain, moderate (4-7) Last Admin: 02/17/19 09:45 Dose: 2 mg - Labs Labs: 02/17/19 06:50 05/22/19 06:50 PT 12.5 SECONDS (9.7-12.2) H 02/14/19 22:34 INR 1.1 02/14/19 22:34 APTT 22.8 SECONDS (21-34) 02/14/19 22:34 Assessment and Plan - Assessment and Plan (Free Text) Assessment: A/P 33 yr old male with hx familial poliposis and colon resection, presents with na usea, dizziness, and some blood in his stools. s/p PRBC transfusion for hgb 6.3 , hgb improved after PRBC- 8.3 s/p EGD - today patient tolerated regular diet after EGD D/w Dr. Loredo, cleared for discharge home [facility] f/u with Dr. Loredo office on Friday discharge plan discussed with patient , who understands and agrees with plan Patient instructed to follow up with Dr. De Santiago office and Dr Lane Colindres office at [facility]
--- NOTE | 2019-02-17 18:52 | CP.PCM.DIS ---
Provider - Provider Date of Admission: 02/14/19 23:32 Attending physician: Nancy Loredo MD Consults: 02/14/19 23:44 Gastroenterology Consult Stat Comment: Consulting Provider: Kenny De Santiago Consulting Physician: Kenny De Santiago Reason for Consult: gi bleed Time Spent in preparation of Discharge (in minutes): 30 Hospital Course - Lab Results Lab Results: Most Recent Lab Values WBC 6.0 K/uL (4.8-10.8) 02/17/19 06:50 RBC 2.73 Mil/uL (4.40-5.90) L 02/17/19 06:50 Hgb 8.3 g/dL (12.0-18.0) L 02/17/19 06:50 Hct 24.5 % (35.0-51.0) L 02/17/19 06:50 MCV 89.7 fL (80.0-94.0) 02/17/19 06:50 MCH 30.2 pg (27.0-31.0) 02/17/19 06:50 MCHC 33.7 g/dL (33.0-37.0) 02/17/19 06:50 RDW 14.3 % (11.5-14.5) 02/17/19 06:50 Plt Count 207 K/uL (130-400) 02/17/19 06:50 MPV 8.8 fL (7.2-11.7) 02/17/19 06:50 Neut % (Auto) 60.0 % (50.0-75.0) 02/17/19 06:50 Lymph % (Auto) 23.3 % (20.0-40.0) 02/17/19 06:50 [place] % (Auto) 7.7 % (0.0-10.0) 02/17/19 06:50 Eos % (Auto) 8.3 % (0.0-4.0) H 02/17/19 06:50 Baso % (Auto) 0.7 % (0.0-2.0) 02/17/19 06:50 Neut # (Auto) 3.6 K/uL (1.8-7.0) 02/17/19 06:50 Lymph # (Auto) 1.4 K/uL (1.0-4.3) 02/17/19 06:50 [place] # (Auto) 0.5 K/uL (0.0-0.8) 02/17/19 06:50 Eos # (Auto) 0.5 K/uL (0.0-0.7) 02/17/19 06:50 Baso # (Auto) 0.0 K/uL (0.0-0.2) 02/17/19 06:50 PT 12.5 SECONDS (9.7-12.2) H 02/14/19 22:34 INR 1.1 02/14/19 22:34 APTT 22.8 SECONDS (21-34) 02/14/19 22:34 Sodium 138 mmol/L (132-148) 02/17/19 06:50 Potassium 3.9 mmol/L (3.6-5.2) 02/17/19 06:50 Chloride 108 mmol/L (98-107) H 02/17/19 06:50 Carbon Dioxide 26 mmol/L (22-30) 02/17/19 06:50 Anion Gap 8 (10-20) L 02/17/19 06:50 BUN 10 mg/dL (9-20) 02/17/19 06:50 Creatinine 0.8 mg/dL (0.8-1.5) 02/17/19 06:50 Est GFR ( Amer) > 60 02/17/19 06:50 Est GFR (Non-Af Amer) > 60 02/17/19 06:50 Random Glucose 100 mg/dL (75-110) 02/17/19 06:50 Calcium 8.2 mg/dl (8.6-10.4) L 02/17/19 06:50 Phosphorus 3.2 mg/dL (2.5-4.5) 02/16/19 07:24 Magnesium 1.9 mg/dL (1.6-2.3) 02/16/19 07:24 Total Bilirubin 0.2 mg/dL (0.2-1.3) 02/15/19 06:45 AST 21 U/L (17-59) 02/15/19 06:45 ALT 40 U/L (21-72) 02/15/19 06:45 Alkaline Phosphatase 63 U/L (38-126) 02/15/19 06:45 Total Protein 5.0 g/dL (6.3-8.3) L 02/15/19 06:45 Albumin 2.9 g/dL (3.5-5.0) L 02/15/19 06:45 Globulin 2.1 gm/dL (2.2-3.9) L 02/15/19 06:45 Albumin/Globulin Ratio 1.4 (1.0-2.1) 02/15/19 06:45 Urine Color Yellow (YELLOW) 02/15/19 08:17 Urine Clarity Clear (Clear) 02/15/19 08:17 Urine pH 5.0 (5.0-8.0) 02/15/19 08:17 Ur Specific [place] > 1.060 (1.003-1.030) H 02/15/19 08:17 Urine Protein Negative mg/dL (NEGATIVE) 02/15/19 08:17 Urine Glucose (UA) 1+ mg/dL (Normal) H 02/15/19 08:17 Urine Ketones Negative mg/dL (NEGATIVE) 02/15/19 08:17 Urine Blood Negative (NEGATIVE) 02/15/19 08:17 Urine Nitrate Negative (NEGATIVE) 02/15/19 08:17 Urine Bilirubin Negative (NEGATIVE) 02/15/19 08:17 Urine Urobilinogen Normal mg/dL (0.2-1.0) 02/15/19 08:17 Ur Leukocyte Esterase Neg [place]/uL (Negative) 02/15/19 08:17 Urine WBC (Auto) 2 /hpf (0-5) 02/15/19 08:17 Urine RBC (Auto) < 1 /hpf (0-3) 02/15/19 08:17 Ur Squamous Epith Cells < 1 /hpf (0-5) 02/15/19 08:17 Blood Type O POSITIVE 02/15/19 08:17 Antibody Screen Negative 02/15/19 08:17 - Hospital Course Hospital Course: PT admitted for gi bleed. Endoscopy revealed polyps, NO ulcers. Gi believe source of bleeding was clips that came off previous polypeptomy pt received two units prbc. hemoglobin has remained stable pt eating well wants to go home Discharge Exam - Head Exam Head Exam: ATRAUMATIC, NORMOCEPHALIC - Eye Exam Eye Exam: Normal appearance - Respiratory Exam Respiratory Exam: Clear to PA & Lateral Discharge Plan - Discharge Medications Prescriptions: Ferrous Sulfate 325 mg PO TID #90 tablet Pantoprazole [Protonix] 40 mg PO DAILY #14 ect - Follow Up Plan Instructions: Normocytic Normochromic Anemia (DC), Gastrointestinal Bleeding (DC) Additional Instructions: Please f/u with Dr. Allen office on Friday Please f/u with Dr. De Santiago office - call and male appointment( f/u visit ) Please f/u with Dr. Good office - call and make appointment Please continue medication as per med. rec. Referrals: Nancy Loredo MD [Staff Provider] - Kenny De Santiago MD [Staff Provider] -
== END 2019-02-17 17:58 | disposition home or self-care (01) | DRG 466 ==
LOC: C.ER 21:46 → C.3T 23:32
PROVIDERS: ADMIT Internal Medicine; ATTEND Internal Medicine
PROC: 30233N1 Transfusion of Nonautologous Red Blood Cells into Peripheral Vein, Percutaneous Approach (ICD-10-PCS; 2019-02-15)
PROC: 0DB88ZX Excision of Small Intestine, Via Natural or Artificial Opening Endoscopic, Diagnostic (ICD-10-PCS; principal; 2019-02-15 08:59)
DX: T85.838A Hemorrhage due to other internal prosthetic devices, implants and grafts, initial encounter (principal); E11.22 Type 2 diabetes mellitus with diabetic chronic kidney disease; K92.1 Melena; N18.9 Chronic kidney disease, unspecified; Y73.8 Miscellaneous gastroenterology and urology devices associated with adverse incidents, not elsewhere classified; K22.70 Barrett's esophagus without dysplasia; K31.7 Polyp of stomach and duodenum; K44.9 Diaphragmatic hernia without obstruction or gangrene; I12.9 Hypertensive chronic kidney disease with stage 1 through stage 4 chronic kidney disease, or unspecified chronic kidney disease; D50.9 Iron deficiency anemia, unspecified; F41.9 Anxiety disorder, unspecified; Z93.2 Ileostomy status

== ENCOUNTER 2019-02-19 18:32 | Inpatient (IN) | payer MEDICAID ==
[2019-02-19 18:32] VITALS: BMI 32.8
[2019-02-19] MEDS ORDERED: Pantoprazole 80 MG in Sodium Chloride 0.9% 100 ML IV STA (19:10)
[2019-02-19] MEDS ORDERED: Sodium Chloride 0.9% 2,000 ML IV ONE (19:10)
--- NOTE | 2019-02-19 19:10 | C.PDOC ---
History Of Present Illness 33 y/o male, with history of familial polyposis, is sent from Dr. Nair office for low hemoglobin of 7. Patient was recently admitted for GI bleed. Reports of black, tarry liquid when he cleaned stoma. Denies fever, chills, or vomiting. Time Seen by Provider: 02/19/19 19:10 Chief Complaint (Nursing): Abnormal Labs History Per: Patient History/Exam Limitations: no limitations Onset/Duration Of Symptoms: Hrs Current Symptoms Are (Timing): Still Present Severity: Moderate Pain Scale Rating Of: 5 Reports Recently: Seen In ED, Treated By A Physician, Hospitalized Recent travel outside of the [place]: No Additional History Per: Family Past Medical History Reviewed: Historical Data, Nursing Documentation, Vital Signs Vital Signs: Last Vital Signs Temp 98.9 F 02/19/19 18:41 Pulse 118 H 02/19/19 18:41 Resp 18 02/19/19 18:41 BP 158/85 H 02/19/19 18:41 Pulse Ox 100 02/19/19 18:41 Primary Care Provider: Nancy Loredo - Medical History PMH: Asthma, Kidney Stones, Chronic Kidney Disease - [employer] Procedures DILATION OF LEFT URETER WITH INTRALUMINAL DEVICE, ENDO (04/02/18) EXCISION OF SMALL INTESTINE, ENDO, DIAGN (02/14/19) FLUOROSCOPY OF LEFT KIDNEY, URETER AND BLADDER (04/02/18) OTHER SKIN & SUBQ I D (06/15/13) PERIRECTAL INCISION (09/26/13) PROCTOTOMY (10/24/13) TRANSFUSE NONAUT RED BLOOD CELLS IN PERIPH VEIN, PERC (02/14/19) Family History: States: Diabetes, Hypertension - Social History Hx Tobacco Use: No Hx Alcohol Use: No Hx Substance Use: No - Immunization History Hx Tetanus Toxoid Vaccination: Yes Hx Influenza Vaccination: No Hx Pneumococcal Vaccination: No Review Of Systems Constitutional: Negative for: Fever, Chills ENT: Negative for: Throat Pain Cardiovascular: Negative for: Chest Pain, Palpitations Respiratory: Negative for: Cough, Shortness of Breath Gastrointestinal: Positive for: Abdominal Pain. Negative for: Vomiting Genitourinary: Negative for: Hematuria Musculoskeletal: Negative for: Back Pain Skin: Negative for: Rash Neurological: Negative for: Weakness, Numbness Psych: Negative for: Anxiety Physical Exam - Physical Exam Appears: Non-toxic Skin: Warm, Dry Head: Normacephalic Eye(s): bilateral: Normal Inspection Oral Mucosa: Moist Neck: Trachea Midline, Supple Chest: Symmetrical, No Tenderness Cardiovascular: Rhythm Regular, No Murmur Respiratory: No Rales, No Rhonchi, No Wheezing Gastrointestinal/Abdominal: Soft, No Tenderness, No Distention, No Guarding, Other (LLQ stoma, clean and dry) Back: No CVA Tenderness Extremity: No Tenderness Extremity: Bilateral: Atraumatic, Normal Color And Temperature Pulses: Left Dorsalis Pedis: Normal, Right Dorsalis Pedis: Normal Neurological/Psych: Oriented x3, Normal Speech, Normal Cognition Gait: Steady ED Course And Treatment - Laboratory Results Result Diagrams: 02/19/19 19:34 02/19/19 19:34 O2 Sat by Pulse Oximetry: 100 (RA) Pulse Ox Interpretation: Normal Medical Decision Making Medical Decision Making: Plan: --Labs --IV fluids Disposition Discussed With : Nancy Loredo Comment: accepted the pt on her service and took over the care at 8:40 PM Doctor Will See Patient In The: Hospital Counseled Patient/Family Regarding: Studies Performed, Diagnosis - Disposition Disposition: HOSPITALIZED Disposition Time: 19:10 Condition: GUARDED Forms: [employer] (French) - POA Present On Arrival: None - Clinical Impression Clinical Impression: Gastrointestinal hemorrhage, Severe anemia - Scribe Statement The provider has reviewed the documentation as recorded by the Stephan Lang Provider Attestation: All medical record entries made by the Kathrineibandria were at my direction and personally dictated by me. I have reviewed the chart and agree that the record accurately reflects my personal performance of the history, physical exam, medical decision making, and the department course for this patient. I have also personally directed, reviewed, and agree with the discharge instructions and disposition. Decision To Admit - Pt Status Changed To: Hospital Disposition Of: Inpatient - Admit Certification Admit to Inpatient:: After my assessment, the patient will require hospitalization for at least two midnights. This is because of the severity of symptoms shown, intensity of services needed, and/or the medical risk in this patient being treated as an outpatient. - InPatient: Physician Admission Certification: I certify that this patient requires 2 or more midnights of care for the following reason:: After my assessment, the patient will require hospitalization for at least two midnights. This is because of the severity of symptoms shown, intensity of services needed, and/or the medical risk in this patient being treated as an outpatient. - . Bed Request Type: Regular Admitting Physician: Nancy Loredo Patient Diagnosis: Gastrointestinal hemorrhage, Severe anemia
[2019-02-19 19:41] LABS: BASO % 0.7 % (0.0-2.0); EOS # 0.4 K/uL (0.0-0.7); EOS % 5.9 % (0.0-4.0); LYMPH # 1.5 K/uL (1.0-4.3); LYMPH % 22.3 % (20.0-40.0); MEAN CELL VOLUME 88.1 fL (80.0-94.0); MEAN CORPUSCULAR HEMOGLOBIN 29.9 pg (27.0-31.0); MEAN CORPUSCULAR HGB CONC 33.9 g/dL (33.0-37.0); MEAN PLATELET VOLUME 8.3 fL (7.2-11.7); MONO # 0.6 K/uL (0.0-0.8); MONO % 8.9 % (0.0-10.0); NEUT # 4.2 K/uL (1.8-7.0); NEUT % 62.2 % (50.0-75.0); NRBC % 0.2 % (0.0-2.0); RBC 2.09 Mil/uL (4.40-5.90); RED CELL DISTRIBUTION WIDTH 13.7 % (11.5-14.5); WHITE BLOOD COUNT 6.8 K/uL (4.8-10.8)
[2019-02-19] MEDS ORDERED: Sodium Chloride 0.9% 2,000 ML ONE (19:42)
[2019-02-19 19:51] LABS: INR 1.1; PARTIAL THROMBOPLASTIN TIME 26.5 SECONDS (21-34); PROTHROMBIN TIME 11.8 SECONDS (9.7-12.2)
[2019-02-19 19:53] LABS: ALB/GLOB RATIO 1.4 (1.0-2.1); ALBUMIN 3.3 g/dL (3.5-5.0); ALT/SGPT 55 U/L (21-72); AST/SGOT 34 U/L (17-59); BLOOD UREA NITROGEN 20 mg/dL (9-20); CALCIUM 8.4 mg/dl (8.6-10.4); GFR NON-AFRICAN AMERICAN > 60
[2019-02-19 20:01] LABS: HEMOGLOBIN 6.2 g/dL (12.0-18.0)
[2019-02-19] MEDS: Pantoprazole 80 MG in Sodium Chloride 0.9% 100 ML IVP SCH ×2 (21:43→22:27)
[2019-02-19] MEDS: Dextrose 5%/0.9% NS 1,000 ML IV SCH (22:36)
[2019-02-20] MEDS: Dextrose 5%/0.9% NS 1,000 ML IV SCH ×3 (05:33→17:02)
[2019-02-20] MEDS: Pantoprazole 80 MG in Sodium Chloride 0.9% 100 ML IVP SCH (06:52)
[2019-02-20 10:02] LABS: BASO % 0.8 % (0.0-2.0); EOS # 0.6 K/uL (0.0-0.7); EOS % 10.9 % (0.0-4.0); HEMOGLOBIN 7.2 g/dL (12.0-18.0); LYMPH # 1.5 K/uL (1.0-4.3); LYMPH % 26.1 % (20.0-40.0); MEAN CORPUSCULAR HEMOGLOBIN 30.2 pg (27.0-31.0); MEAN CORPUSCULAR HGB CONC 34.7 g/dL (33.0-37.0); MEAN PLATELET VOLUME 8.7 fL (7.2-11.7); MONO # 0.5 K/uL (0.0-0.8); MONO % 8.1 % (0.0-10.0); NEUT # 3.2 K/uL (1.8-7.0); NEUT % 54.1 % (50.0-75.0); NRBC % 0.1 % (0.0-2.0); RBC 2.38 Mil/uL (4.40-5.90); RED CELL DISTRIBUTION WIDTH 14.1 % (11.5-14.5); WHITE BLOOD COUNT 5.9 K/uL (4.8-10.8)
[2019-02-20 10:22] LABS: ALB/GLOB RATIO 1.3 (1.0-2.1); ALBUMIN 2.8 g/dL (3.5-5.0); ALT/SGPT 55 U/L (21-72); AST/SGOT 39 U/L (17-59); BLOOD UREA NITROGEN 17 mg/dL (9-20); GFR NON-AFRICAN AMERICAN > 60
--- NOTE | 2019-02-20 10:27 | CP.PCM.HP ---
History of Present Illness - History of Present Illness History of Present Illness: cc; black stools PT is a 33 year old with familial polyposis, sp colon resection who presented to hospital a week ago with GI bleed. Pt had a colonoscopy, no active bleeding at the time. Bleeding at the time thought to me secondary to clips falling off from a polypectomy per Dr. Escobar. PT had 2 units prbc and sent home with a hgb in the 8 range. Pt presented to my office yesterday complaining of black stools and feeling week. Office hgb was 7.2, pt was sent to ER and by the time came here it had further dropped to 6.2. Pt received two units prbc. This morning he states he feels ok. PT does report he continues to have melena this AM pt denies chest pain and sob pmhx; as above Present on Admission - Present on Admission Any Indicators Present on Admission: No Review of Systems - Constitutional Constitutional: absent: Anorexia, Chills - Cardiovascular Cardiovascular: absent: Chest Pain, Chest Pain with Activity, Dyspnea on Exertion, Edema - Respiratory Respiratory: absent: Cough, Hemoptysis, Wheezing - Gastrointestinal Gastrointestinal: Change in Bowel Habits, Melena. absent: Coffee Ground Emesis, Dysphagia, Heartburn, Nausea - Genitourinary Genitourinary: absent: Change in Urinary Stream - Neurological Neurological: absent: Abnormal Gait - Psychiatric Psychiatric: Anxiety, Depression. absent: Homicidal Ideation, Suicidal Ideation Past Patient History - Infectious Disease Hx of Infectious Diseases: None - Past Medical History & Family History Past Medical History?: Yes - Past Social History Smoking Status: Never Smoked - CARDIAC Hx Cardiac Disorders: No - PULMONARY Hx Asthma: Yes - NEUROLOGICAL Hx Neurological Disorder: No - HEENT Hx HEENT Problems: No - RENAL Hx Chronic Kidney Disease: Yes Hx Kidney Stones: Yes - ENDOCRINE/METABOLIC Hx Endocrine Disorders: No - HEMATOLOGICAL/ONCOLOGICAL Hx Blood Disorders: No - INTEGUMENTARY Hx Dermatological Problems: No - MUSCULOSKELETAL/RHEUMATOLOGICAL Hx Musculoskeletal Disorders: No Hx Falls: No - GASTROINTESTINAL Hx Gastrointestinal Disorders: No Other/Comment: STOMA - GENITOURINARY/GYNECOLOGICAL Hx Genitourinary Disorders: No - PSYCHIATRIC Hx Substance Use: No - SURGICAL HISTORY Hx Surgeries: Yes Other/Comment: total colectomy 2011. ENDOSCOPY 02/02/2019 - ANESTHESIA Hx Anesthesia: Yes Hx Anesthesia Reactions: No Hx Malignant Hyperthermia: No Meds Allergies/Adverse Reactions: Allergies Allergy/AdvReac Type Severity Reaction Status Date / Time No Known Allergies Allergy Verified 02/14/19 22:00 Physical Exam - Constitutional Appears: Non-toxic - Eye Exam Eye Exam: Normal appearance - ENT Exam ENT Exam: Mucous Membranes Moist - Respiratory Exam Respiratory Exam: Clear to Auscultation Bilateral. absent: Rales - Cardiovascular Exam Cardiovascular Exam: REGULAR RHYTHM, RRR, +S1, +S2. absent: JVD - GI/Abdominal Exam GI & Abdominal Exam: Normal Bowel Sounds, Soft, Tenderness. absent: Distended - Neurological Exam Neurological exam: Alert, Oriented x3 - Psychiatric Exam Psychiatric exam: Normal Affect - Skin Skin Exam: Dry, Intact Results - Vital Signs Recent Vital Signs: Last Vital Signs Temp 98.1 F 02/20/19 05:23 Pulse 92 H 02/20/19 05:23 Resp 16 02/20/19 05:23 BP 121/68 02/20/19 05:23 Pulse Ox 96 02/20/19 00:45 - Labs Result Diagrams: 02/20/19 09:44 02/20/19 09:44 Labs: Laboratory Results - last 24 hr 02/19/19 02/19/19 02/19/19 19:34 19:34 19:34 WBC 6.8 RBC 2.09 L Hgb 6.2 L* D Hct 18.4 L MCV 88.1 MCH 29.9 MCHC 33.9 RDW 13.7 Plt Count 238 MPV 8.3 Neut % (Auto) 62.2 Lymph % (Auto) 22.3 [place] % (Auto) 8.9 Eos % (Auto) 5.9 H Baso % (Auto) 0.7 Neut # (Auto) 4.2 Lymph # (Auto) 1.5 [place] # (Auto) 0.6 Eos # (Auto) 0.4 Baso # (Auto) 0.0 PT 11.8 INR 1.1 APTT 26.5 Sodium 139 Potassium 3.5 L Chloride 105 Carbon Dioxide 26 Anion Gap 11 BUN 20 Creatinine 1.0 Est GFR ( Amer) > 60 Est GFR (Non-Af Amer) > 60 Random Glucose 112 H Calcium 8.4 L Total Bilirubin 0.3 AST 34 ALT 55 Alkaline Phosphatase 70 Total Protein 5.7 L Albumin 3.3 L Globulin 2.4 Albumin/Globulin Ratio 1.4 Stool Occult Blood Blood Type Antibody Screen 02/19/19 02/20/19 02/20/19 19:34 02:42 09:44 WBC 5.9 RBC 2.38 L Hgb 7.2 L Hct 20.7 L MCV 87.0 MCH 30.2 MCHC 34.7 RDW 14.1 Plt Count 203 MPV 8.7 Neut % (Auto) 54.1 Lymph % (Auto) 26.1 [place] % (Auto) 8.1 Eos % (Auto) 10.9 H Baso % (Auto) 0.8 Neut # (Auto) 3.2 Lymph # (Auto) 1.5 [place] # (Auto) 0.5 Eos # (Auto) 0.6 Baso # (Auto) 0.0 PT INR APTT Sodium Potassium Chloride Carbon Dioxide Anion Gap BUN Creatinine Est GFR ( Amer) Est GFR (Non-Af Amer) Random Glucose Calcium Total Bilirubin AST ALT Alkaline Phosphatase Total Protein Albumin Globulin Albumin/Globulin Ratio Stool Occult Blood Positive H Blood Type O POSITIVE Antibody Screen Negative 02/20/19 09:44 WBC RBC Hgb Hct MCV MCH MCHC RDW Plt Count MPV Neut % (Auto) Lymph % (Auto) [place] % (Auto) Eos % (Auto) Baso % (Auto) Neut # (Auto) Lymph # (Auto) [place] # (Auto) Eos # (Auto) Baso # (Auto) PT INR APTT Sodium 137 Potassium 3.7 Chloride 108 H Carbon Dioxide 25 Anion Gap 7 L BUN 17 Creatinine 0.9 Est GFR ( Amer) > 60 Est GFR (Non-Af Amer) > 60 Random Glucose 89 D Calcium 8.0 L Total Bilirubin 0.6 AST 39 ALT 55 Alkaline Phosphatase 64 Total Protein 5.0 L Albumin 2.8 L Globulin 2.2 Albumin/Globulin Ratio 1.3 Stool Occult Blood Blood Type Antibody Screen Assessment & Plan - Assessment and Plan (Free Text) Assessment: GI bleed Familial polyposis bleeding around ostomy noted per pt npo ivf protonix drip continue to monitor Hemoglobin PT seen by GI EGD
--- NOTE | 2019-02-20 10:35 | CP.PCM.CON ---
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 He was recently admitted here a few days ago for similar complaints with drop in Hgb. EGD was done and revealed xanthoma and fundic gland polyps, LA-A esophagitis (+IM), HP neg gastritis and duodenal adenoma. No clips were seen near second part of duodenum were adenoma was removed; therefore, that was the suspected site of bleeding that spontaneously resolve. He was transfused blood with appropriate response, later had brown stool output and was subsequently discharged with Hgb of 8.3. Unfortunately, shortly after DC, he began to have dark tarry stools again with repeat Hgb of 7 and subsequently sent into ED where repeat Hgb was 6.2 and admitted for further evaluation. Currently, patient states he has his baseline chronic abd pain and ongoing 2-3 tarry bowel movements. He denied any weight loss, N/V, nor bright red output from ostomy. 12 point ROS negative other than stated above MHx and SurgHx: See above Meds: Reviewed in chart FamHx: FAP SocHx: Denied x 3 All: NKDA Past Patient History - Infectious Disease Hx of Infectious Diseases: None - Past Medical History & Family History Past Medical History?: Yes - Past Social History Smoking Status: Never Smoked - CARDIAC Hx Cardiac Disorders: No - PULMONARY Hx Asthma: Yes - NEUROLOGICAL Hx Neurological Disorder: No - HEENT Hx HEENT Problems: No - RENAL Hx Chronic Kidney Disease: Yes Hx Kidney Stones: Yes - ENDOCRINE/METABOLIC Hx Endocrine Disorders: No - HEMATOLOGICAL/ONCOLOGICAL Hx Blood Disorders: No - INTEGUMENTARY Hx Dermatological Problems: No - MUSCULOSKELETAL/RHEUMATOLOGICAL Hx Musculoskeletal Disorders: No Hx Falls: No - GASTROINTESTINAL Hx Gastrointestinal Disorders: No Other/Comment: STOMA - GENITOURINARY/GYNECOLOGICAL Hx Genitourinary Disorders: No - PSYCHIATRIC Hx Substance Use: No - SURGICAL HISTORY Hx Surgeries: Yes Other/Comment: total colectomy 2011. ENDOSCOPY 02/02/2019 - ANESTHESIA Hx Anesthesia: Yes Hx Anesthesia Reactions: No Hx Malignant Hyperthermia: No Meds Allergies/Adverse Reactions: Allergies Allergy/AdvReac Type Severity Reaction Status Date / Time No Known Allergies Allergy Verified 02/14/19 22:00 - Medications Medications: Current Medications Pantoprazole Sodium 80 mg/ (Sodium Chloride) 100 mls @ 10 mls/hr IVP .Q10H [facility] Last Admin: 02/20/19 06:52 Dose: 10 mls/hr Dextrose/Sodium Chloride (Dextrose 5%/0.9% Ns 1000 Ml) 1,000 mls @ 100 mls/hr IV .Q10H [facility] Last Admin: 02/20/19 06:58 Dose: Not Given Morphine Sulfate (Morphine) 2 mg IVP Q6 PRN PRN Reason: pain Last Admin: 02/20/19 05:32 Dose: 2 mg Morphine Sulfate (Morphine) 2 mg SC STAT STA Stop: 02/20/19 10:34 Physical Exam - Constitutional Appears: Well, No Acute Distress - Head Exam Head Exam: ATRAUMATIC, NORMAL INSPECTION - Eye Exam Eye Exam: EOMI. absent: Scleral icterus - ENT Exam ENT Exam: Mucous Membranes Moist. absent: Mucous Membranes Dry - Respiratory Exam Respiratory Exam: NORMAL BREATHING PATTERN. absent: Accessory Muscle Use - Cardiovascular Exam Cardiovascular Exam: REGULAR RHYTHM, RRR - GI/Abdominal Exam GI & Abdominal Exam: Normal Bowel Sounds, Soft, Tenderness (mildly diffusely ttp w/o guarding). absent: Diminished Bowel Sounds, Distended, Firm, Guarding, Hernia, Mass, Organomegaly, Rigid Additional comments: midline lower scar, LLQ gauze covering stoma - Extremities Exam Extremities exam: Positive for: normal inspection. Negative for: pedal edema - Neurological Exam Neurological exam: Alert, Oriented x3 - Psychiatric Exam Psychiatric exam: Normal Affect, Normal Mood - Skin Skin Exam: Normal Color, Warm Results - Vital Signs Recent Vital Signs: Last Vital Signs Temp 98.1 F 02/20/19 05:23 Pulse 92 H 02/20/19 05:23 Resp 16 02/20/19 05:23 BP 121/68 02/20/19 05:23 Pulse Ox 96 02/20/19 00:45 - Labs Result Diagrams: 02/20/19 09:44 02/20/19 09:44 Labs: Laboratory Results - last 24 hr 02/19/19 02/19/19 02/19/19 19:34 19:34 19:34 WBC 6.8 RBC 2.09 L Hgb 6.2 L* D Hct 18.4 L MCV 88.1 MCH 29.9 MCHC 33.9 RDW 13.7 Plt Count 238 MPV 8.3 Neut % (Auto) 62.2 Lymph % (Auto) 22.3 [place] % (Auto) 8.9 Eos % (Auto) 5.9 H Baso % (Auto) 0.7 Neut # (Auto) 4.2 Lymph # (Auto) 1.5 [place] # (Auto) 0.6 Eos # (Auto) 0.4 Baso # (Auto) 0.0 PT 11.8 INR 1.1 APTT 26.5 Sodium 139 Potassium 3.5 L Chloride 105 Carbon Dioxide 26 Anion Gap 11 BUN 20 Creatinine 1.0 Est GFR ( Amer) > 60 Est GFR (Non-Af Amer) > 60 Random Glucose 112 H Calcium 8.4 L Total Bilirubin 0.3 AST 34 ALT 55 Alkaline Phosphatase 70 Total Protein 5.7 L Albumin 3.3 L Globulin 2.4 Albumin/Globulin Ratio 1.4 Stool Occult Blood Blood Type Antibody Screen 02/19/19 02/20/19 02/20/19 19:34 02:42 09:44 WBC 5.9 RBC 2.38 L Hgb 7.2 L Hct 20.7 L MCV 87.0 MCH 30.2 MCHC 34.7 RDW 14.1 Plt Count 203 MPV 8.7 Neut % (Auto) 54.1 Lymph % (Auto) 26.1 [place] % (Auto) 8.1 Eos % (Auto) 10.9 H Baso % (Auto) 0.8 Neut # (Auto) 3.2 Lymph # (Auto) 1.5 [place] # (Auto) 0.5 Eos # (Auto) 0.6 Baso # (Auto) 0.0 PT INR APTT Sodium Potassium Chloride Carbon Dioxide Anion Gap BUN Creatinine Est GFR ( Amer) Est GFR (Non-Af Amer) Random Glucose Calcium Total Bilirubin AST ALT Alkaline Phosphatase Total Protein Albumin Globulin Albumin/Globulin Ratio Stool Occult Blood Positive H Blood Type O POSITIVE Antibody Screen Negative 02/20/19 09:44 WBC RBC Hgb Hct MCV MCH MCHC RDW Plt Count MPV Neut % (Auto) Lymph % (Auto) [place] % (Auto) Eos % (Auto) Baso % (Auto) Neut # (Auto) Lymph # (Auto) [place] # (Auto) Eos # (Auto) Baso # (Auto) PT INR APTT Sodium 137 Potassium 3.7 Chloride 108 H Carbon Dioxide 25 Anion Gap 7 L BUN 17 Creatinine 0.9 Est GFR ( Amer) > 60 Est GFR (Non-Af Amer) > 60 Random Glucose 89 D Calcium 8.0 L Total Bilirubin 0.6 AST 39 ALT 55 Alkaline Phosphatase 64 Total Protein 5.0 L Albumin 2.8 L Globulin 2.2 Albumin/Globulin Ratio 1.3 Stool Occult Blood Blood Type Antibody Screen Assessment & Plan - Assessment and Plan (Free Text) Assessment: 33 yo male with 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 # Melena: Hgb down to 6.2 from 8.3 on DC few days ago. Likely related to post- polypectomy bleed from upper source. Plan: - Urgent EGD with side viewing scope today - PPI gtt - Monitor Hgb post Tx, goal >7 - NPO Pt seen and examined with Dr. Montez; please see attestation for further recs/changes. <Raheem Montez - Last Filed: 02/20/19 10:59> Meds - Medications Medications: Current Medications Dextrose/Sodium Chloride (Dextrose 5%/0.9% Ns 1000 Ml) 1,000 mls @ 100 mls/hr IV .Q10H [facility] Last Admin: 02/20/19 06:58 Dose: Not Given Pantoprazole Sodium 80 mg/ (Sodium Chloride) 100 mls @ 10 mls/hr IVPB .Q10H [facility] Morphine Sulfate (Morphine) 2 mg IVP Q6 PRN PRN Reason: pain Last Admin: 02/20/19 05:32 Dose: 2 mg Results - Vital Signs Recent Vital Signs: Last Vital Signs Temp 98.1 F 02/20/19 05:23 Pulse 92 H 02/20/19 05:23 Resp 16 02/20/19 05:23 BP 121/68 02/20/19 05:23 Pulse Ox 96 02/20/19 00:45 - Labs Result Diagrams: 02/20/19 09:44 02/20/19 09:44 Labs: Laboratory Results - last 24 hr 02/19/19 02/19/1919 19:34 19:34 19:34 WBC 6.8 RBC 2.09 L Hgb 6.2 L* D Hct 18.4 L MCV 88.1 MCH 29.9 MCHC 33.9 RDW 13.7 Plt Count 238 MPV 8.3 Neut % (Auto) 62.2 Lymph % (Auto) 22.3 [place] % (Auto) 8.9 Eos % (Auto) 5.9 H Baso % (Auto) 0.7 Neut # (Auto) 4.2 Lymph # (Auto) 1.5 [place] # (Auto) 0.6 Eos # (Auto) 0.4 Baso # (Auto) 0.0 PT 11.8 INR 1.1 APTT 26.5 Sodium 139 Potassium 3.5 L Chloride 105 Carbon Dioxide 26 Anion Gap 11 BUN 20 Creatinine 1.0 Est GFR ( Amer) > 60 Est GFR (Non-Af Amer) > 60 Random Glucose 112 H Calcium 8.4 L Phosphorus Magnesium Total Bilirubin 0.3 AST 34 ALT 55 Alkaline Phosphatase 70 Total Protein 5.7 L Albumin 3.3 L Globulin 2.4 Albumin/Globulin Ratio 1.4 Stool Occult Blood Blood Type Antibody Screen 02/19/19 02/20/19 02/20/19 19:34 02:42 09:44 WBC 5.9 RBC 2.38 L Hgb 7.2 L Hct 20.7 L MCV 87.0 MCH 30.2 MCHC 34.7 RDW 14.1 Plt Count 203 MPV 8.7 Neut % (Auto) 54.1 Lymph % (Auto) 26.1 [place] % (Auto) 8.1 Eos % (Auto) 10.9 H Baso % (Auto) 0.8 Neut # (Auto) 3.2 Lymph # (Auto) 1.5 [place] # (Auto) 0.5 Eos # (Auto) 0.6 Baso # (Auto) 0.0 PT INR APTT Sodium Potassium Chloride Carbon Dioxide Anion Gap BUN Creatinine Est GFR ( Amer) Est GFR (Non-Af Amer) Random Glucose Calcium Phosphorus Magnesium Total Bilirubin AST ALT Alkaline Phosphatase Total Protein Albumin Globulin Albumin/Globulin Ratio Stool Occult Blood Positive H Blood Type O POSITIVE Antibody Screen Negative 02/20/19 09:44 WBC RBC Hgb Hct MCV MCH MCHC RDW Plt Count MPV Neut % (Auto) Lymph % (Auto) [place] % (Auto) Eos % (Auto) Baso % (Auto) Neut # (Auto) Lymph # (Auto) [place] # (Auto) Eos # (Auto) Baso # (Auto) PT INR APTT Sodium 137 Potassium 3.7 Chloride 108 H Carbon Dioxide 25 Anion Gap 7 L BUN 17 Creatinine 0.9 Est GFR ( Amer) > 60 Est GFR (Non-Af Amer) > 60 Random Glucose 89 D Calcium 8.0 L Phosphorus 3.4 Magnesium 1.9 Total Bilirubin 0.6 AST 39 ALT 55 Alkaline Phosphatase 64 Total Protein 5.0 L Albumin 2.8 L Globulin 2.2 Albumin/Globulin Ratio 1.3 Stool Occult Blood Blood Type Antibody Screen Attending/Attestation - Attestation I have personally seen and examined this patient.: Yes I have fully participated in the care of the patient.: Yes I have reviewed all pertinent clinical information: Yes Notes (Text): 02/20/19 10:[address] De Santiago yesterday and prior reports reviewed from [place] and one week ago. Recurrent bleeding likely from polypectomy site which bled at time of removal and treated with 3 clips that had fallen off when last viewed..] No bleeding noted but now had further melena and drop in H/H. Agree with need for urgent EGD with end and possible side view gastroscope. Consent obtained and risks/benefits of procedure discussed in detail. Transfuse to hgb>8
[2019-02-20] MEDS ORDERED: Propofol 10 mg/ml Inj (20 ML) ONE ×4 (11:28→12:23)
[2019-02-20] MEDS ORDERED: Etomidate 20 mg/10ml Inj IV ONE (11:28)
[2019-02-20] MEDS ORDERED: Midazolam 2 MG/2 ML VIAL ONE (11:55)
[2019-02-20] MEDS ORDERED: Glucagon Recombinant 1 mg Inj ONE (11:58)
[2019-02-20] MEDS ORDERED: Iodixanol 320 MG/ML 100 ML BOTTLE IV ONE (13:44)
--- NOTE | 2019-02-20 15:21 | CT ---
Date of service: 02/20/2019 PROCEDURE: CTA of the abdomen with contrast HISTORY: melena, bright red blood seen on EGD w/o clear geraldo COMPARISON: Comparison is made with the previous CT of the abdomen with contrast dated 02/15/2019 TECHNIQUE: CTA of the abdomen was obtained after IV contrast administration. Reconstructed coronal and sagittal images were also obtained. FINDINGS: Small atelectasis at the lung bases noted. No evidence of pleural effusion. [id number] hepatomegaly and moderate to severe hepatic steatosis are again noted. No evidence of cholecystitis or pancreatitis. No evidence of mass lesion at the adrenal glands. The spleen is normal in size. The kidneys enhance symmetrically. The abdominal aorta is normal in caliber and shape. No evidence of enhancing mass lesion in the visualized portion of the small bowel. The patient is status post total colectomy. Left-sided enterostomy is again seen in place. No evidence of bowel obstruction. Again noted anterolisthesis in the mildly dilated bowel loop at the pelvis. The abdominal aorta is normal in caliber and shape. The SMA is patent. The GERALD is small in size and barely seen. No evidence of free fluid or free air in the abdomen and pelvis. No CT evidence of enteritis. The urinary bladder is partially distended demonstrate mild wall thickening. Mild fat stranding surrounding the prostate and at the rectum region is noted. IMPRESSION: No evidence of contrast extravasation or accumulation of the contrast in the bowel in this arterial phase of the CTA of the abdomen and pelvis. Additional findings as discussed above.
[2019-02-20] MEDS: Pantoprazole 80 MG in Sodium Chloride 0.9% 100 ML IVPB SCH ×2 (16:45→22:41)
[2019-02-20 22:04] LABS: BASO # 0.1 K/uL (0.0-0.2); BASO % 0.8 % (0.0-2.0); EOS # 0.6 K/uL (0.0-0.7); EOS % 9.1 % (0.0-4.0); HEMOGLOBIN 7.8 g/dL (12.0-18.0); LYMPH # 1.4 K/uL (1.0-4.3); LYMPH % 21.2 % (20.0-40.0); MEAN CELL VOLUME 85.9 fL (80.0-94.0); MEAN CORPUSCULAR HEMOGLOBIN 30.2 pg (27.0-31.0); MEAN CORPUSCULAR HGB CONC 35.2 g/dL (33.0-37.0); MEAN PLATELET VOLUME 7.9 fL (7.2-11.7); MONO # 0.4 K/uL (0.0-0.8); MONO % 6.6 % (0.0-10.0); NEUT % 62.3 % (50.0-75.0); RBC 2.59 Mil/uL (4.40-5.90); RED CELL DISTRIBUTION WIDTH 13.8 % (11.5-14.5); WHITE BLOOD COUNT 6.5 K/uL (4.8-10.8)
[2019-02-20 22:15] LABS: BLOOD UREA NITROGEN 14 mg/dL (9-20); CALCIUM 8.1 mg/dl (8.6-10.4); GFR NON-AFRICAN AMERICAN > 60
[2019-02-21] MEDS: Dextrose 5%/0.9% NS 1,000 ML IV SCH (03:46)
[2019-02-21] MEDS: Pantoprazole 80 MG in Sodium Chloride 0.9% 100 ML IVPB SCH ×2 (03:52→08:56)
[2019-02-21 05:45] LABS: HEMOGLOBIN 7.5 g/dL (12.0-18.0); MEAN CELL VOLUME 87.4 fL (80.0-94.0); MEAN CORPUSCULAR HEMOGLOBIN 29.5 pg (27.0-31.0); MEAN CORPUSCULAR HGB CONC 33.8 g/dL (33.0-37.0); MEAN PLATELET VOLUME 7.8 fL (7.2-11.7); RBC 2.55 Mil/uL (4.40-5.90); RED CELL DISTRIBUTION WIDTH 13.8 % (11.5-14.5); WHITE BLOOD COUNT 5.8 K/uL (4.8-10.8)
[2019-02-21 05:58] LABS: BLOOD UREA NITROGEN 13 mg/dL (9-20); GFR NON-AFRICAN AMERICAN > 60
[2019-02-21 09:02] VITALS: RESP 20
--- NOTE | 2019-02-21 10:23 | CP.PCM.PN ---
<David Munroe - Last Filed: 02/21/19 10:19> Subjective - Date & Time of Evaluation Date of Evaluation: 02/21/19 Time of Evaluation: 09:50 - Subjective Subjective: PGY-4 GI Fellow Prog Note Pt in bed when seen this AM. States 1 dark stool since endoscopy yesterday, thinks opiods are slowing his bowels. Requesting clear liq diet be advanced. Abd pain stable. 5 point ROS negative other than stated above Objective - Vital Signs/Intake and Output Vital Signs (last 24 hours): Temp Pulse Resp BP Pulse Ox 98.3 F 81 20 133/77 96 02/21/19 09:01 02/21/19 09:01 02/21/19 09:01 02/21/19 09:01 02/21/19 09:01 Intake and Output: 02/21/19 02/21/19 06:59 18:59 Intake Total 1530 Balance 1530 - Medications Medications: Current Medications Dextrose/Sodium Chloride (Dextrose 5%/0.9% Ns 1000 Ml) 1,000 mls @ 100 mls/hr IV .Q10H [facility] Last Admin: 02/21/19 03:46 Dose: 100 mls/hr Pantoprazole Sodium 80 mg/ (Sodium Chloride) 100 mls @ 10 mls/hr IVPB .Q10H [facility] Last Admin: 02/21/19 08:56 Dose: 10 mls/hr Morphine Sulfate (Morphine) 2 mg IVP Q6 PRN PRN Reason: pain Last Admin: 02/21/19 09:13 Dose: 2 mg - Labs Labs: 02/21/19 05:43 02/21/19 05:43 PT 11.8 SECONDS (9.7-12.2) 02/19/19 19:34 INR 1.1 02/19/19 19:34 APTT 26.5 SECONDS (21-34) 02/19/19 19:34 - Constitutional Appears: Well, No Acute Distress - Head Exam Head Exam: ATRAUMATIC, NORMAL INSPECTION - Eye Exam Eye Exam: EOMI. absent: Scleral icterus - ENT Exam ENT Exam: Mucous Membranes Moist. absent: Mucous Membranes Dry - Respiratory Exam Respiratory Exam: NORMAL BREATHING PATTERN. absent: Accessory Muscle Use - GI/Abdominal Exam GI & Abdominal Exam: Soft, Normal Bowel Sounds. 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 # Melena: Hgb down to 6.2 on admission from 8.3 on DC few days prior. Unclear source. EGD on 02/20 with multiple duodenal erosion and ulcers but none with clear active bleed nor stigmata despite fresh blood being visualized (see report for more details). s/p 3 units PRBCs with w/o adequate response but Hgb stable on last several checks. Plan: - Monitor Hgb q 12 hrs - Clear Liq Diet - PPI gtt Pt seen and examined with Dr. Montez; please see attestation for further recs/changes. <Raheem Montez - Last Filed: 02/21/19 10:56> Objective - Vital Signs/Intake and Output Vital Signs (last 24 hours): Temp Pulse Resp BP Pulse Ox 98.3 F 81 20 133/77 96 02/21/19 09:01 02/21/19 09:01 02/21/19 09:01 02/21/19 09:01 02/21/19 09:01 Intake and Output: 02/21/19 02/21/19 06:59 18:59 Intake Total 1530 Balance 1530 - Medications Medications: Current Medications Morphine Sulfate (Morphine) 2 mg IVP Q6 PRN PRN Reason: pain Last Admin: 02/21/19 09:13 Dose: 2 mg Pantoprazole Sodium (Protonix Ec Tab) 40 mg PO BID [facility] - Labs Labs: 02/21/19 05:43 02/21/19 05:43 PT 11.8 SECONDS (9.7-12.2) 02/19/19 19:34 INR 1.1 02/19/19 19:34 APTT 26.5 SECONDS (21-34) 02/19/19 19:34 Attending/Attestation - Attestation I have personally seen and examined this patient.: No Notes (Text): 02/21/19 10:54 CTA was negative for active bleeding. H/H remain stable after transfusion but IV fluids can be causing dilutional effect. No further active bleeding, black stools related to old blood +/- Iron therapy he has been taking. Advance diet and stop IV's. BID PPI and repeat CBC this afternoon. If remains stable can be discharged to outpatient follow up and repeat EGD. If evidence to suggest continued "bleeding/oozing" will require repeat EGD on this admission. Hope for discharge later or in am.
[2019-02-21] MEDS ORDERED: Potassium Chloride 10 mEq ER Tab PO ONE (11:05)
[2019-02-21 13:40] LABS: HEMOGLOBIN 8.2 g/dL (12.0-18.0); MEAN CELL VOLUME 86.8 fL (80.0-94.0); MEAN CORPUSCULAR HEMOGLOBIN 30.2 pg (27.0-31.0); MEAN CORPUSCULAR HGB CONC 34.8 g/dL (33.0-37.0); MEAN PLATELET VOLUME 8.6 fL (7.2-11.7); RBC 2.71 Mil/uL (4.40-5.90); RED CELL DISTRIBUTION WIDTH 13.9 % (11.5-14.5); WHITE BLOOD COUNT 6.4 K/uL (4.8-10.8)
[2019-02-21] MEDS: Pantoprazole 40 mg EC Tab PO SCH (17:09)
[2019-02-21 20:23] LABS: HEMOGLOBIN 8.8 g/dL (12.0-18.0); MEAN CELL VOLUME 87.9 fL (80.0-94.0); MEAN CORPUSCULAR HEMOGLOBIN 29.9 pg (27.0-31.0); MEAN PLATELET VOLUME 8.2 fL (7.2-11.7); RBC 2.94 Mil/uL (4.40-5.90); RED CELL DISTRIBUTION WIDTH 14.1 % (11.5-14.5); WHITE BLOOD COUNT 8.1 K/uL (4.8-10.8)
--- NOTE | 2019-02-22 08:24 | CP.PCM.PN ---
Subjective - Date & Time of Evaluation Date of Evaluation: 02/22/19 Time of Evaluation: 08:24 - Subjective Subjective: Pt reports he continues to have melena. This morning noted some "sherman colored stool" PT also reports discomfort at his surgical scar Pt denies any chest pain, fever or sob Objective - Vital Signs/Intake and Output Vital Signs (last 24 hours): Temp Pulse Resp BP Pulse Ox 97.9 F 86 20 128/75 95 02/22/19 07:44 02/22/19 07:44 02/22/19 07:44 02/22/19 07:44 02/22/19 07:44 - Medications Medications: Current Medications Morphine Sulfate (Morphine) 2 mg IVP Q6 PRN PRN Reason: pain Last Admin: 02/21/19 22:23 Dose: 2 mg Pantoprazole Sodium (Protonix Ec Tab) 40 mg PO BID [facility] Last Admin: 02/21/19 17:09 Dose: 40 mg - Labs Labs: 02/21/19 19:20 02/21/19 05:43 PT 11.8 SECONDS (9.7-12.2) 02/19/19 19:34 INR 1.1 02/19/19 19:34 APTT 26.5 SECONDS (21-34) 02/19/19 19:34 - Constitutional Appears: Non-toxic - Eye Exam Eye Exam: Normal appearance - ENT Exam ENT Exam: Mucous Membranes Moist - Respiratory Exam Respiratory Exam: Clear to Ausculation Bilateral - Cardiovascular Exam Cardiovascular Exam: REGULAR RHYTHM, RRR, +S1, +S2. absent: JVD, Rubs - GI/Abdominal Exam GI & Abdominal Exam: Soft, Tenderness, Normal Bowel Sounds - Back Exam Back Exam: Full ROM - Neurological Exam Neurological Exam: Awake, Normal Gait, Oriented x3 - Skin Skin Exam: Dry, Intact, Normal Color Assessment and Plan - Assessment and Plan (Free Text) Assessment: 33 year old with familial polyposis, with GI bleed appreciate GI input PT has had mulitple episodes of melena since scope will keep in the hospital today monitor H and H.
[2019-02-22] MEDS: Pantoprazole 40 mg EC Tab PO SCH ×2 (09:17→17:15)
[2019-02-22 10:19] LABS: HEMOGLOBIN 7.2 g/dL (12.0-18.0); MEAN CELL VOLUME 86.3 fL (80.0-94.0); MEAN CORPUSCULAR HEMOGLOBIN 29.9 pg (27.0-31.0); MEAN CORPUSCULAR HGB CONC 34.6 g/dL (33.0-37.0); MEAN PLATELET VOLUME 8.1 fL (7.2-11.7); RBC 2.41 Mil/uL (4.40-5.90); RED CELL DISTRIBUTION WIDTH 14.1 % (11.5-14.5); WHITE BLOOD COUNT 5.7 K/uL (4.8-10.8)
[2019-02-22 10:36] LABS: ALB/GLOB RATIO 1.3 (1.0-2.1); ALT/SGPT 45 U/L (21-72); AST/SGOT 22 U/L (17-59); BLOOD UREA NITROGEN 18 mg/dL (9-20); CALCIUM 8.1 mg/dl (8.6-10.4); GFR NON-AFRICAN AMERICAN > 60
--- NOTE | 2019-02-22 12:15 | CP.PCM.CON ---
History of Present Illness - History of Present Illness History of Present Illness: Surgery Consult Note. Dr. Younger 33yo M with PMHx of Familial Adenomatous Polyposis syndrome who is admitted for GI bleeding. Patient had a total colectomy with an Ileal pouch procedure performed at [facility] [place]. He states that he has since been evacuating his bowels approximately once per day via his transabdominal pouch. He states that approximately 1 month ago, he had a "precancerous" duodenal polyp excised at [facility]. Since that time, he has noted 1-2 melanotic stools. He was admitted 1 week ago with similar complaints and was discharged once his hb stablized. He returns 4 days ago with similar complaints, including dizziness and weakness. Overnight, he was transfused 4U PRBCs and 1FFP. Surgery consult was requested. 02/20: EGD done with evidence of clot in duodenum with no active bleeding noted 02/20: CT Angio with no evidence of active bleeding PMHx: Familial Adenomatous Polyposis Syndrome PSHx: Total Colectomy with creation on transabdominal J-Pouch (2012). EGD with bx of duodenal polyp (December 2018 at [facility]) Family Hx: Father-FAP Social Hx: Denies Tobacco use; Rare ETOH use; Rare Marijuana use NKDA Review of Systems - Constitutional Constitutional: Malaise. absent: Chills, Fever, Weight Loss - EENT Eyes: absent: Blurred Vision, Change in Vision Ears: absent: Ear Discharge, Ear Pain Nose/Mouth/Throat: absent: Nasal Congestion, Nasal Discharge - Cardiovascular Cardiovascular: absent: Chest Pain, Diaphoresis, Dyspnea - Respiratory Respiratory: absent: Cough, Dyspnea, Chest Congestion - Gastrointestinal Gastrointestinal: Hematochezia, Melena. absent: Abdominal Pain, Nausea, Vomiting - Genitourinary Genitourinary: absent: Difficulty Urinating, Dysuria - Neurological Neurological: absent: Dizziness, Weakness Past Patient History - Infectious Disease Hx of Infectious Diseases: None - Past Medical History & Family History Past Medical History?: Yes Pertinent Family History: Father: familial adenomatous polyposis syndrome - Past Social History Smoking Status: Never Smoked Drugs: Cannabis (rare marijuana use) - CARDIAC Hx Cardiac Disorders: No - PULMONARY Hx Asthma: Yes - NEUROLOGICAL Hx Neurological Disorder: No - HEENT Hx HEENT Problems: No - RENAL Hx Chronic Kidney Disease: Yes Hx Kidney Stones: Yes - ENDOCRINE/METABOLIC Hx Endocrine Disorders: No - HEMATOLOGICAL/ONCOLOGICAL Hx Blood Disorders: No - INTEGUMENTARY Hx Dermatological Problems: No - MUSCULOSKELETAL/RHEUMATOLOGICAL Hx Musculoskeletal Disorders: No Hx Falls: No - GASTROINTESTINAL Hx Gastrointestinal Disorders: No Other/Comment: STOMA - GENITOURINARY/GYNECOLOGICAL Hx Genitourinary Disorders: No - PSYCHIATRIC Hx Substance Use: No - SURGICAL HISTORY Hx Surgeries: Yes Other/Comment: total colectomy 2012. ENDOSCOPY 02/02/2019 - ANESTHESIA Hx Anesthesia: Yes Hx Anesthesia Reactions: No Hx Malignant Hyperthermia: No Meds Allergies/Adverse Reactions: Allergies Allergy/AdvReac Type Severity Reaction Status Date / Time No Known Allergies Allergy Verified 02/14/19 22:00 - Medications Medications: Current Medications Morphine Sulfate (Morphine) 2 mg IVP Q6 PRN PRN Reason: pain Last Admin: 02/22/19 08:30 Dose: 2 mg Pantoprazole Sodium (Protonix Ec Tab) 40 mg PO BID [facility] Last Admin: 02/22/19 09:17 Dose: 40 mg Physical Exam - Constitutional Appears: Non-toxic, No Acute Distress - Head Exam Head Exam: ATRAUMATIC, NORMAL INSPECTION, NORMOCEPHALIC - Eye Exam Eye Exam: EOMI, Normal appearance. absent: Scleral icterus - ENT Exam ENT Exam: Mucous Membranes Moist - Respiratory Exam Respiratory Exam: NORMAL BREATHING PATTERN. absent: Accessory Muscle Use, Respi ratory Distress - Cardiovascular Exam Cardiovascular Exam: RRR. absent: JVD - GI/Abdominal Exam GI & Abdominal Exam: Soft. absent: Distended, Firm, Guarding, Rebound, Tenderness Additional comments: Ostomy with dressing in place. Midline infraumbilical abdominal scar - Extremities Exam Extremities exam: Positive for: normal inspection. Negative for: calf tenderness - Neurological Exam Neurological exam: Alert, Oriented x3 - Skin Skin Exam: Dry, Intact, Normal Color, Warm Results - Vital Signs Recent Vital Signs: Last Vital Signs Temp 97.9 F 02/22/19 07:44 Pulse 86 02/22/19 07:44 Resp 20 02/22/19 07:44 BP 128/75 02/22/19 07:44 Pulse Ox 95 02/22/19 07:44 - Labs Result Diagrams: 02/22/19 17:09 02/22/19 10:11 Labs: Laboratory Results - last 24 hr 02/21/19 02/21/19 02/22/19 13:36 19:20 10:11 WBC 6.4 8.1 RBC 2.71 L 2.94 L Hgb 8.2 L 8.8 L Hct 23.5 L 25.8 L MCV 86.8 87.9 MCH 30.2 29.9 MCHC 34.8 34.0 RDW 13.9 14.1 Plt Count 226 287 MPV 8.6 8.2 Sodium 137 Potassium 3.9 Chloride 108 H Carbon Dioxide 24 Anion Gap 9 L BUN 18 Creatinine 0.9 Est GFR ( Amer) > 60 Est GFR (Non-Af Amer) > 60 Random Glucose 135 H D Calcium 8.1 L Total Bilirubin 0.3 AST 22 ALT 45 Alkaline Phosphatase 70 Total Protein 5.3 L Albumin 3.0 L Globulin 2.3 Albumin/Globulin Ratio 1.3 02/22/19 10:14 WBC 5.7 RBC 2.41 L Hgb 7.2 L Hct 20.8 L MCV 86.3 MCH 29.9 MCHC 34.6 RDW 14.1 Plt Count 236 MPV 8.1 Sodium Potassium Chloride Carbon Dioxide Anion Gap BUN Creatinine Est GFR ( Amer) Est GFR (Non-Af Amer) Random Glucose Calcium Total Bilirubin AST ALT Alkaline Phosphatase Total Protein Albumin Globulin Albumin/Globulin Ratio Assessment & Plan - Assessment and Plan (Free Text) Assessment: 33yo M with PMHx of FAP s/p total colectomy and abdominal wall J-Pouch in 2012, s/p duodenal polyp removal recently in [facility] complicated with GI bleed. Plan: - f/u GI recs - No gen surgery intervention amenable at this time - Monitor H/H and transfuse as needed - If unable to control endoscopically, consider transfer to a tertiary care center or under the care of the original operating surgeon Further recs as per Dr. Aren Burns PGY2 surgery
--- NOTE | 2019-02-22 16:19 | CP.PCM.PN ---
Subjective - Date & Time of Evaluation Date of Evaluation: 02/22/19 Time of Evaluation: 16:17 - Subjective Subjective: Patient noted to have further tarry stools and black stools today and had a drop in hgb to 7.2 earlier and now 7.3. Discharge cancelled for today. Objective - Vital Signs/Intake and Output Vital Signs (last 24 hours): Temp Pulse Resp BP Pulse Ox 97.9 F 86 20 128/75 95 02/22/19 07:44 02/22/19 07:44 02/22/19 07:44 02/22/19 07:44 02/22/19 07:44 Intake and Output: 02/22/19 02/22/19 06:59 18:59 Intake Total 480 Balance 480 - Medications Medications: Current Medications Morphine Sulfate (Morphine) 2 mg IVP Q6 PRN PRN Reason: pain Last Admin: 02/22/19 15:00 Dose: 2 mg Pantoprazole Sodium (Protonix Ec Tab) 40 mg PO BID SCOTT Last Admin: 02/22/19 09:17 Dose: 40 mg - Labs Labs: 02/22/19 10:14 02/22/19 10:11 PT 11.8 SECONDS (9.7-12.2) 02/19/19 19:34 INR 1.1 02/19/19 19:34 APTT 26.5 SECONDS (21-34) 02/19/19 19:34 - Constitutional Appears: No Acute Distress - Head Exam Head Exam: ATRAUMATIC, NORMOCEPHALIC - Respiratory Exam Respiratory Exam: NORMAL BREATHING PATTERN - Cardiovascular Exam Cardiovascular Exam: REGULAR RHYTHM, +S1 - GI/Abdominal Exam GI & Abdominal Exam: Soft, Hyperactive Bowel Sounds. absent: Distended, Guarding, Tenderness, Mass, Rebound Additional comments: well healed ostomy and midline scars. - Extremities Exam Extremities Exam: Normal Inspection Assessment and Plan (1) Melena Assessment & Plan: Patient with recurrent melena and drop in H/H. Likely again to be from duodenal bleeding source post-polypectomy though timing of 3 weeks should have resulted in healing of ulcer at site. Unable to visualize the source on friday. Will make NPO tomorrow for possible repeat EGD by Dr De Santiago vs possible transfer to Dr Laird at for further management. Would be of benefit to better visualize the region of the polypectomy for any SRH or active bleeding. Status: Acute (2) Adenomatous duodenal polyp Status: Resolved (3) Acute blood loss anemia Assessment & Plan: Monitor for further bleeding Status: Acute (4) Acute duodenal ulcer with bleeding Assessment & Plan: superficial ulcers noted on EGD but no stigmata of bleeding or active bleeding. Status: Acute
[2019-02-22 17:17] LABS: BASO % 0.6 % (0.0-2.0); EOS # 0.4 K/uL (0.0-0.7); EOS % 7.1 % (0.0-4.0); HEMOGLOBIN 7.3 g/dL (12.0-18.0); LYMPH # 1.1 K/uL (1.0-4.3); LYMPH % 19.3 % (20.0-40.0); MEAN CORPUSCULAR HEMOGLOBIN 29.6 pg (27.0-31.0); MEAN CORPUSCULAR HGB CONC 33.6 g/dL (33.0-37.0); MEAN PLATELET VOLUME 7.9 fL (7.2-11.7); MONO # 0.5 K/uL (0.0-0.8); MONO % 7.9 % (0.0-10.0); NEUT # 3.7 K/uL (1.8-7.0); NEUT % 65.1 % (50.0-75.0); NRBC % 0.1 % (0.0-2.0); RBC 2.47 Mil/uL (4.40-5.90); RED CELL DISTRIBUTION WIDTH 14.4 % (11.5-14.5); WHITE BLOOD COUNT 5.7 K/uL (4.8-10.8)
[2019-02-23] MEDS: Pantoprazole 40 mg EC Tab PO SCH ×2 (09:06→18:13)
[2019-02-23 11:55] LABS: HEMOGLOBIN 7.4 g/dL (12.0-18.0); MEAN PLATELET VOLUME 8.5 fL (7.2-11.7); WHITE BLOOD COUNT 5.7 K/uL (4.8-10.8)
[2019-02-23 12:06] LABS: MEAN CORPUSCULAR HEMOGLOBIN 29.5 pg (27.0-31.0); MEAN CORPUSCULAR HGB CONC 34.4 g/dL (33.0-37.0); RBC 2.52 Mil/uL (4.40-5.90)
[2019-02-23 12:07] LABS: MEAN CELL VOLUME 85.9 fL (80.0-94.0)
[2019-02-23 12:18] LABS: BLOOD UREA NITROGEN 14 mg/dL (9-20); CALCIUM 8.6 mg/dl (8.6-10.4); GFR NON-AFRICAN AMERICAN > 60
--- NOTE | 2019-02-23 18:43 | CP.PCM.DIS ---
Provider - Provider Date of Admission: 02/19/19 20:39 Attending physician: Nancy Loredo MD Consults: 02/19/19 20:48 Gastroenterology Consult Routine Comment: Consulting Provider: Kenny De Santiago Consulting Physician: Kenny De Santiago Reason for Consult: GI bleed 02/22/19 11:10 Vascular Surgery Routine Comment: Consulting Provider: Gabe Younger Jr. Physician Instructions: Reason For Exam: possible GI bleed, polyposis Time Spent in preparation of Discharge (in minutes): 20 Hospital Course - Lab Results Lab Results: Most Recent Lab Values WBC 5.7 K/uL (4.8-10.8) 02/23/19 11:38 RBC 2.52 Mil/uL (4.40-5.90) L 02/23/19 11:38 Hgb 7.4 g/dL (12.0-18.0) L 02/23/19 11:38 Hct 21.7 % (35.0-51.0) L 02/23/19 11:38 MCV 85.9 fL (80.0-94.0) D 02/23/19 11:38 MCH 29.5 pg (27.0-31.0) 02/23/19 11:38 MCHC 34.4 g/dL (33.0-37.0) 02/23/19 11:38 RDW 14.0 % (11.5-14.5) 02/23/19 11:38 Plt Count 248 K/uL (130-400) 02/23/19 11:38 MPV 8.5 fL (7.2-11.7) 02/23/19 11:38 Neut % (Auto) 65.1 % (50.0-75.0) 02/22/19 17:09 Lymph % (Auto) 19.3 % (20.0-40.0) L 02/22/19 17:09 [place] % (Auto) 7.9 % (0.0-10.0) 02/22/19 17:09 Eos % (Auto) 7.1 % (0.0-4.0) H 02/22/19 17:09 Baso % (Auto) 0.6 % (0.0-2.0) 02/22/19 17:09 Neut # (Auto) 3.7 K/uL (1.8-7.0) 02/22/19 17:09 Lymph # (Auto) 1.1 K/uL (1.0-4.3) 02/22/19 17:09 [place] # (Auto) 0.5 K/uL (0.0-0.8) 02/22/19 17:09 Eos # (Auto) 0.4 K/uL (0.0-0.7) 02/22/19 17:09 Baso # (Auto) 0.0 K/uL (0.0-0.2) 02/22/19 17:09 PT 11.8 SECONDS (9.7-12.2) 02/19/19 19:34 INR 1.1 02/19/19 19:34 APTT 26.5 SECONDS (21-34) 02/19/19 19:34 Sodium 136 mmol/L (132-148) 02/23/19 11:38 Potassium 3.6 mmol/L (3.6-5.2) 02/23/19 11:38 Chloride 105 mmol/L (98-107) 02/23/19 11:38 Carbon Dioxide 26 mmol/L (22-30) 02/23/19 11:38 Anion Gap 9 (10-20) L 02/23/19 11:38 BUN 14 mg/dL (9-20) 02/23/19 11:38 Creatinine 0.9 mg/dL (0.8-1.5) 02/23/19 11:38 Est GFR ( Amer) > 60 02/23/19 11:38 Est GFR (Non-Af Amer) > 60 02/23/19 11:38 Random Glucose 92 mg/dL (75-110) D 02/23/19 11:38 Calcium 8.6 mg/dl (8.6-10.4) 02/23/19 11:38 Phosphorus 3.4 mg/dL (2.5-4.5) 02/20/19 09:44 Magnesium 1.9 mg/dL (1.6-2.3) 02/20/19 09:44 Total Bilirubin 0.3 mg/dL (0.2-1.3) 02/22/19 10:11 AST 22 U/L (17-59) 02/22/19 10:11 ALT 45 U/L (21-72) 02/22/19 10:11 Alkaline Phosphatase 70 U/L (38-126) 02/22/19 10:11 Total Protein 5.3 g/dL (6.3-8.3) L 02/22/19 10:11 Albumin 3.0 g/dL (3.5-5.0) L 02/22/19 10:11 Globulin 2.3 gm/dL (2.2-3.9) 02/22/19 10:11 Albumin/Globulin Ratio 1.3 (1.0-2.1) 02/22/19 10:11 Stool Occult Blood Positive (NEGATIVE) H 02/20/19 02:42 Blood Type O POSITIVE 02/22/19 17:09 Antibody Screen Negative 02/22/19 17:09 - Hospital Course Hospital Course: Pt was admitted for gi bleed. He was transfused and had an EGD by Dr. Montez. No active source of bleeding was identified. Pt remained hemodynamically stable but continued to have melena and drops in hemoglobin. Pt is being transferred to [facility] for repeat EGD and further eval. Discussed case with Dr. De Santiago. Discharge Exam - Head Exam Head Exam: ATRAUMATIC, NORMOCEPHALIC Discharge Plan - Follow Up Plan Condition: GUARDED Disposition: Trans to Other Acute Care Hosp
[2019-02-24] MEDS ORDERED: Dextrose 5%/0.45% NS 1,000 ML IV SCH (09:00)
[2019-02-24] MEDS: Pantoprazole 40 mg EC Tab PO SCH ×2 (09:07→17:04)
[2019-02-24 11:32] LABS: HEMOGLOBIN 7.7 g/dL (12.0-18.0); MEAN CELL VOLUME 84.4 fL (80.0-94.0); MEAN CORPUSCULAR HEMOGLOBIN 28.8 pg (27.0-31.0); MEAN CORPUSCULAR HGB CONC 34.1 g/dL (33.0-37.0); MEAN PLATELET VOLUME 8.3 fL (7.2-11.7); RBC 2.68 Mil/uL (4.40-5.90); RED CELL DISTRIBUTION WIDTH 13.7 % (11.5-14.5); WHITE BLOOD COUNT 5.9 K/uL (4.8-10.8)
[2019-02-24 11:42] LABS: BLOOD UREA NITROGEN 15 mg/dL (9-20); CALCIUM 8.8 mg/dl (8.6-10.4); GFR NON-AFRICAN AMERICAN > 60
--- NOTE | 2019-02-24 16:11 | CP.PCM.PN ---
Subjective - Date & Time of Evaluation Date of Evaluation: 02/24/19 Time of Evaluation: 16:08 - Subjective Subjective: Patient denies having abdominal pain, vomiting. The ileostomy effluent is manager contracting, more brown in color. He has not seen any red blood. The HGB from this morning is 7.7. Transfer to is on hold pending availability of beds. Objective - Vital Signs/Intake and Output Vital Signs (last 24 hours): Temp Pulse Resp BP Pulse Ox 98.0 F 79 20 106/63 97 02/24/19 08:06 02/24/19 08:06 02/24/19 08:06 02/24/19 08:06 02/24/19 08:06 - Medications Medications: Current Medications Morphine Sulfate (Morphine) 2 mg IVP Q6H PRN PRN Reason: Pain, severe (8-10) Last Admin: 02/24/19 15:48 Dose: 2 mg Pantoprazole Sodium (Protonix Ec Tab) 40 mg PO BID SCOTT Last Admin: 02/24/19 09:07 Dose: Not Given - Labs Labs: 02/24/19 11:11 02/24/19 11:11 PT 11.8 SECONDS (9.7-12.2) 02/19/19 19:34 INR 1.1 02/19/19 19:34 APTT 26.5 SECONDS (21-34) 02/19/19 19:34 - Constitutional Appears: No Acute Distress - Head Exam Head Exam: ATRAUMATIC, NORMOCEPHALIC - Eye Exam Eye Exam: EOMI, PERRL - Neck Exam Neck Exam: absent: Lymphadenopathy, Thyromegaly - Respiratory Exam Respiratory Exam: NORMAL BREATHING PATTERN. absent: Rales, Rhonchi, Wheezes - Cardiovascular Exam Cardiovascular Exam: REGULAR RHYTHM, +S1, +S2. absent: Gallop, Rubs, Murmur - GI/Abdominal Exam GI & Abdominal Exam: Soft, Normal Bowel Sounds. absent: Tenderness, Mass, Organomegaly Additional comments: LLQ ileostomy - Rectal Exam Rectal Exam: Deferred Assessment and Plan (1) Acute duodenal ulcer with bleeding Assessment & Plan: Patient states that the bowel movements are less dark, more brown. The HGB from this morning is up to 7.7. Transfer to is pending. Status: Acute
--- NOTE | 2019-02-24 16:41 | CP.PCM.PN ---
Subjective - Date & Time of Evaluation Date of Evaluation: 02/24/19 Time of Evaluation: 16:44 - Subjective Subjective: Pt is waiting for transfer to [facility]. PT reports he is a little better today, stools starting to turn brown. Tolerating diet. PT states he felt dizzy last night but not today. No n/v Objective - Vital Signs/Intake and Output Vital Signs (last 24 hours): Temp Pulse Resp BP Pulse Ox 98.0 F 84 20 143/76 98 02/24/19 14:00 02/24/19 14:00 02/24/19 14:00 02/24/19 14:00 02/24/19 14:00 - Medications Medications: Current Medications Morphine Sulfate (Morphine) 2 mg IVP Q6H PRN PRN Reason: Pain, severe (8-10) Last Admin: 02/24/19 15:48 Dose: 2 mg Pantoprazole Sodium (Protonix Ec Tab) 40 mg PO BID SCOTT Last Admin: 02/24/19 09:07 Dose: Not Given - Labs Labs: 02/24/19 11:11 02/24/19 11:11 PT 11.8 SECONDS (9.7-12.2) 02/19/19 19:34 INR 1.1 02/19/19 19:34 APTT 26.5 SECONDS (21-34) 02/19/19 19:34 - Constitutional Appears: Well, Non-toxic - Eye Exam Eye Exam: Normal appearance - ENT Exam ENT Exam: Mucous Membranes Moist - Respiratory Exam Respiratory Exam: Clear to Ausculation Bilateral - Cardiovascular Exam Cardiovascular Exam: REGULAR RHYTHM, RRR, +S1, +S2. absent: JVD - GI/Abdominal Exam GI & Abdominal Exam: Soft, Normal Bowel Sounds. absent: Tenderness Assessment and Plan - Assessment and Plan (Free Text) Plan: SP Gi bleed better now will await for bed to [facility] if not bed by tomorrow and hgb is stable and stools brown will discuss with GI outp follow up.
[2019-02-25 07:19] LABS: HEMOGLOBIN 7.2 g/dL (12.0-18.0); MEAN CELL VOLUME 83.7 fL (80.0-94.0); MEAN CORPUSCULAR HEMOGLOBIN 28.8 pg (27.0-31.0); MEAN CORPUSCULAR HGB CONC 34.5 g/dL (33.0-37.0); MEAN PLATELET VOLUME 8.3 fL (7.2-11.7); RBC 2.51 Mil/uL (4.40-5.90); RED CELL DISTRIBUTION WIDTH 14.1 % (11.5-14.5); WHITE BLOOD COUNT 5.1 K/uL (4.8-10.8)
[2019-02-25 07:45] VITALS: TEMP 97.9
[2019-02-25] MEDS: Pantoprazole 40 mg EC Tab PO SCH ×2 (09:15→17:33)
--- NOTE | 2019-02-25 15:05 | CP.PCM.PN ---
Subjective - Date & Time of Evaluation Date of Evaluation: 02/25/19 Time of Evaluation: 15:02 - Subjective Subjective: Patient denies having nausea, vomiting, bleeding per ileostomy. HGB from this morning was 7.2, down from 7.7 yesterday. Transfer to [facility] is still pending. Objective - Vital Signs/Intake and Output Vital Signs (last 24 hours): Temp Pulse Resp BP Pulse Ox 97.9 F 80 20 107/68 97 02/25/19 07:43 02/25/19 07:43 02/25/19 07:43 02/25/19 07:43 02/25/19 07:43 Intake and Output: 02/25/19 02/25/19 06:59 18:59 Intake Total 300 300 Balance 300 300 - Medications Medications: Current Medications Morphine Sulfate (Morphine) 2 mg IVP Q6H PRN PRN Reason: Pain, severe (8-10) Last Admin: 02/25/19 06:45 Dose: 2 mg Pantoprazole Sodium (Protonix Ec Tab) 40 mg PO BID SCOTT Last Admin: 02/25/19 09:15 Dose: 40 mg - Labs Labs: 02/25/19 07:06 02/24/19 11:11 PT 11.8 SECONDS (9.7-12.2) 02/19/19 19:34 INR 1.1 02/19/19 19:34 APTT 26.5 SECONDS (21-34) 02/19/19 19:34 - Constitutional Appears: No Acute Distress - Head Exam Head Exam: ATRAUMATIC - Neck Exam Neck Exam: absent: Lymphadenopathy, Thyromegaly - Respiratory Exam Respiratory Exam: NORMAL BREATHING PATTERN. absent: Rales, Rhonchi, Wheezes - Cardiovascular Exam Cardiovascular Exam: REGULAR RHYTHM, +S1, +S2. absent: Gallop, Rubs, Murmur - GI/Abdominal Exam GI & Abdominal Exam: Soft, Normal Bowel Sounds. absent: Tenderness, Orga nomegaly Additional comments: LLQ ileostomy - Rectal Exam Rectal Exam: Deferred - Extremities Exam Extremities Exam: absent: Calf Tenderness, Pedal Edema Assessment and Plan (1) Acute duodenal ulcer with bleeding Assessment & Plan: Patient denies having bleeding, melena. The HGB is slightly lower than yesterday, but essentially unchanged from 02/22/19 and 5/28/19. Still waiting for a bed at [facility] to become available. Status: Acute
[2019-02-25 16:10] VITALS: BP 120/74; PULSE 81; O2SAT 98
--- NOTE | 2019-02-25 18:26 | CP.PCM.DIS ---
Provider - Provider Date of Admission: 02/19/19 20:39 Attending physician: Nancy Loredo MD Consults: 02/19/19 20:48 Gastroenterology Consult Routine Comment: Consulting Provider: Kenny De Santiago Consulting Physician: Kenny De Santiago Reason for Consult: GI bleed 02/22/19 11:10 Vascular Surgery Routine Comment: Consulting Provider: Gabe Younger Jr. Physician Instructions: Reason For Exam: possible GI bleed, polyposis Time Spent in preparation of Discharge (in minutes): 30 Hospital Course - Lab Results Lab Results: Most Recent Lab Values WBC 5.1 K/uL (4.8-10.8) 02/25/19 07:06 RBC 2.51 Mil/uL (4.40-5.90) L 02/25/19 07:06 Hgb 7.2 g/dL (12.0-18.0) L 02/25/19 07:06 Hct 21.0 % (35.0-51.0) L 02/25/19 07:06 MCV 83.7 fL (80.0-94.0) 02/25/19 07:06 MCH 28.8 pg (27.0-31.0) 02/25/19 07:06 MCHC 34.5 g/dL (33.0-37.0) 02/25/19 07:06 RDW 14.1 % (11.5-14.5) 02/25/19 07:06 Plt Count 286 K/uL (130-400) 02/25/19 07:06 MPV 8.3 fL (7.2-11.7) 02/25/19 07:06 Neut % (Auto) 65.1 % (50.0-75.0) 02/22/19 17:09 Lymph % (Auto) 19.3 % (20.0-40.0) L 02/22/19 17:09 [place] % (Auto) 7.9 % (0.0-10.0) 02/22/19 17:09 Eos % (Auto) 7.1 % (0.0-4.0) H 02/22/19 17:09 Baso % (Auto) 0.6 % (0.0-2.0) 02/22/19 17:09 Neut # (Auto) 3.7 K/uL (1.8-7.0) 02/22/19 17:09 Lymph # (Auto) 1.1 K/uL (1.0-4.3) 02/22/19 17:09 [place] # (Auto) 0.5 K/uL (0.0-0.8) 02/22/19 17:09 Eos # (Auto) 0.4 K/uL (0.0-0.7) 02/22/19 17:09 Baso # (Auto) 0.0 K/uL (0.0-0.2) 02/22/19 17:09 PT 11.8 SECONDS (9.7-12.2) 02/19/19 19:34 INR 1.1 02/19/19 19:34 APTT 26.5 SECONDS (21-34) 02/19/19 19:34 Sodium 137 mmol/L (132-148) 02/24/19 11:11 Potassium 3.8 mmol/L (3.6-5.2) 02/24/19 11:11 Chloride 105 mmol/L (98-107) 02/24/19 11:11 Carbon Dioxide 26 mmol/L (22-30) 02/24/19 11:11 Anion Gap 10 (10-20) 02/24/19 11:11 BUN 15 mg/dL (9-20) 02/24/19 11:11 Creatinine 0.9 mg/dL (0.8-1.5) 02/24/19 11:11 Est GFR ( Amer) > 60 02/24/19 11:11 Est GFR (Non-Af Amer) > 60 02/24/19 11:11 Random Glucose 94 mg/dL (75-110) 02/24/19 11:11 Calcium 8.8 mg/dl (8.6-10.4) 02/24/19 11:11 Phosphorus 3.4 mg/dL (2.5-4.5) 02/20/19 09:44 Magnesium 1.9 mg/dL (1.6-2.3) 02/20/19 09:44 Total Bilirubin 0.3 mg/dL (0.2-1.3) 02/22/19 10:11 AST 22 U/L (17-59) 02/22/19 10:11 ALT 45 U/L (21-72) 02/22/19 10:11 Alkaline Phosphatase 70 U/L (38-126) 02/22/19 10:11 Total Protein 5.3 g/dL (6.3-8.3) L 02/22/19 10:11 Albumin 3.0 g/dL (3.5-5.0) L 02/22/19 10:11 Globulin 2.3 gm/dL (2.2-3.9) 02/22/19 10:11 Albumin/Globulin Ratio 1.3 (1.0-2.1) 02/22/19 10:11 Stool Occult Blood Positive (NEGATIVE) H 02/20/19 02:42 Blood Type O POSITIVE 02/22/19 17:09 Antibody Screen Negative 02/22/19 17:09 - Hospital Course Hospital Course: pt admitted with recurrent GI bleed EGD did not show the source Pt required blood tx pt was evaluated by Gi and recommended transfer to [facility] for repeat EGD with his Gi doctor. PT is feeling well HEmoglobin is 7.2 but he is comfortable , no abd pain, n or vomiting. Pt states no blood in stool noted and stool color has been brown for the last 48 hours. Discharge Exam - Head Exam Head Exam: ATRAUMATIC - Eye Exam Eye Exam: Normal appearance - ENT Exam ENT Exam: Mucous Membranes Moist - Respiratory Exam Respiratory Exam: Clear to PA & Lateral, NORMAL BREATHING PATTERN - Cardiovascular Exam Cardiovascular Exam: REGULAR RHYTHM, RRR, +S1, +S2. absent: JVD - GI/Abdominal Exam GI & Abdominal Exam: Normal Bowel Sounds - Extremities Exam Extremities exam: full ROM Discharge Plan - Follow Up Plan Condition: GUARDED
== END 2019-02-25 20:55 | disposition short-term general hospital (02) | DRG 174 ==
LOC: C.ER 18:32 → C.3T 20:39
PROVIDERS: ADMIT Internal Medicine; ATTEND Internal Medicine
PROC: 0DJ08ZZ Inspection of Upper Intestinal Tract, Via Natural or Artificial Opening Endoscopic (ICD-10-PCS; principal; 2019-02-20 11:30)
DX: K92.2 Gastrointestinal hemorrhage, unspecified (principal); E11.22 Type 2 diabetes mellitus with diabetic chronic kidney disease; N18.9 Chronic kidney disease, unspecified; D62 Acute posthemorrhagic anemia; F41.9 Anxiety disorder, unspecified; G89.29 Other chronic pain; I12.9 Hypertensive chronic kidney disease with stage 1 through stage 4 chronic kidney disease, or unspecified chronic kidney disease; D13.2 Benign neoplasm of duodenum; J45.909 Unspecified asthma, uncomplicated; K29.70 Gastritis, unspecified, without bleeding; K26.9 Duodenal ulcer, unspecified as acute or chronic, without hemorrhage or perforation